=== PATIENT | male | born 1940 | race Caucasian/White ===

== ENCOUNTER → 2016-10-16 | Outpatient (REF) | payer MEDICARE, OTHER ==
[2016-10-16 12:35] LABS: ALBUMIN 3.7 GM/DL (3.2-5.2); ALBUMIN/GLOBULIN RATIO 1.28 (1.00-1.93); BILIRUBIN,TOTAL 0.8 MG/DL (0.2-1.0); CALCIUM LEVEL 8.5 MG/DL (8.8-10.2); CREATININE FOR GFR 1.36 MG/DL (0.70-1.30); GLOMERULAR FILTRATION RATE 54.1 (>42); TOTAL PROTEIN 6.6 GM/DL (6.4-8.2)
== END | disposition home or self-care (01) ==
LOC: M SFHCPLAZ 11:10
PROVIDERS: ATTEND Internal Medicine
DX: Z51.81 Encounter for therapeutic drug level monitoring (principal); Z79.899 Other long term (current) drug therapy; E78.00 Pure hypercholesterolemia, unspecified

== ENCOUNTER → 2017-04-27 | Outpatient (REF) | payer OTHER ==
[~2017-04-27] MED LIST: ASPI81TA85 PO; BACT2CRE TOP; CLOB0.0548 TOP; DICY10CA13 PO; FINA15GE TOP; FLOM5CAP PO; FLON1SPR; METO1TAB32 PO; METR0.7533 TOP; MULT1TAB18 PO; OMEP20CA3 PO; SELE25SHA TOP; VITAD1000T PO; ZOCO20TA PO
[2017-04-27 10:58] LABS: MEAN CORPUSCULAR HEMOGLOBIN 34.8 pg (27.0-33.0); MEAN CORPUSCULAR VOLUME 99.4 fl (80.0-96.0); RED CELL DISTRIBUTION WIDTH 12.6 % (11.5-14.5); WHITE BLOOD COUNT 7.4 K/mm3 (4.0-10.0)
[2017-04-27 11:24] LABS: ALBUMIN 3.9 GM/DL (3.2-5.2); ALBUMIN/GLOBULIN RATIO 1.3 (1.00-1.93); BILIRUBIN,TOTAL 0.9 MG/DL (0.2-1.0); CALCIUM LEVEL 8.9 MG/DL (8.8-10.2); CREATININE FOR GFR 1.41 MG/DL (0.70-1.30); GLOMERULAR FILTRATION RATE 51.8 (>42); POTASSIUM SERUM 4.2 MEQ/L (3.5-5.1); TOTAL PROTEIN 6.9 GM/DL (6.4-8.2)
== END ==
LOC: M SFHCPLAZ 09:11
PROVIDERS: ATTEND Internal Medicine
DX: Z51.81 Encounter for therapeutic drug level monitoring (principal); Z79.899 Other long term (current) drug therapy; D75.89 Other specified diseases of blood and blood-forming organs

== ENCOUNTER → 2017-05-11 | Outpatient (CLI) | payer OTHER ==
--- NOTE | 2017-05-11 10:25 | REP ---
Clinical: History of thoracic and abdominal aortic aneurysm. Comparison: 05/01/2016. Technique: Garcia scale and color Doppler evaluation of the abdominal aorta using curved array transducer. Findings: Moderate atherosclerotic changes are noted throughout the abdominal aorta including scattered atheromatous plaquing. Doppler interrogation demonstrates normal triphasic wave pattern and velocity through the proximal abdominal aorta. Aneurysmal dilatation to the proximal abdominal aorta represents a relatively new finding by ultrasound when compared to prior examination. Dilatation measures approximately 4.5 x 5.6 cm AP and transverse diameter and approximately 5 cm in craniocaudal length extending to the region of the celiac axis. The proximal to mid abdominal aorta tapers to approximately 3.0 x 3.5 cm through the level of the renal arteries. The mid to distal abdominal aorta demonstrates aneurysmal dilatation measuring 4.3 x 4.1 cm diameter and approximately 9 cm craniocaudal length continuing through bifurcation. The right common iliac artery measures 1.7 x 2.0 cm while the left common iliac artery measures 1.3 x 1.8 cm. No periaortic inflammatory stranding or fluid is appreciated. 1. Infrarenal abdominal aortic aneurysm as minimally increased in diameter when compared to prior examination. 2. Newly identified aneurysmal dilatation involving the proximal abdominal aorta which may represent a continuation of the patient's known thoracic aortic aneurysm. Contrast enhanced CT of the aorta using angiographic technique may be warranted for more definitive evaluation. Signed by Angel Salamanca MD 05/11/2017 10:17 A
== END ==
LOC: M RAD 09:02
PROVIDERS: ATTEND Internal Medicine
DX: I71.4 Abdominal aortic aneurysm, without rupture (principal); R93.1 Abnormal findings on diagnostic imaging of heart and coronary circulation

== ENCOUNTER 2017-06-18 07:10 | Day surgery (SDC) | payer OTHER ==
[~2017-06-18] VITALS: Ht 165.1 cm; Wt 82.5 kg
[2017-06-18] MEDS ORDERED: NS 1,000 ML IV SCH (07:15)
[2017-06-18] MEDS ORDERED: PROPOFOL 200 MG/20 ML VIAL As Ordered ONE (08:04)
[2017-06-18] MEDS ORDERED: LIDOCAINE 2% INJ 100 MG/5 ML SDV (FOR ANES.) As Ordered ONE (08:04)
--- NOTE | 2017-06-18 08:07 | ROOR ---
Patient Name: Sina Diaz Procedure Date: 06/18/2017 7:53 AM Date of : 1940 Age: 76 Room: [facility] Gender: Male Note Status: Finalized Procedure: Upper GI endoscopy Indications: Generalized abdominal pain, Dyspepsia Providers: Harlan LEON MD Referring MD: Espinoza Sharp MD Requesting Provider: Medicines: Monitored Anesthesia Care Complications: No immediate complications. Procedure: Pre-Anesthesia Assessment: - The heart rate, respiratory rate, oxygen saturations, blood pressure, adequacy of pulmonary ventilation, and response to care were monitored throughout the procedure. The Endoscope was introduced through the mouth, and advanced to the second part of duodenum. The upper GI endoscopy was accomplished without difficulty. The patient tolerated the procedure well. Findings: Candidiasis was found in the entire esophagus. The exam was otherwise without abnormality. Impression: - Monilial esophagitis (mild). - The examination was otherwise normal. - No specimens collected. Recommendation: - Nystatin suspension 100,000 units PO QID for 1 week. - (the script was sent to your pharmacy on file) Harlan Leon MD Harlan LEON MD 06/18/2017 8:07:03 AM This report has been signed electronically. Number of Addenda: 0 Note Initiated On: 06/18/2017 7:53 AM Estimated Blood Loss: Estimated blood loss: none.
--- NOTE | 2017-06-18 08:32 | ROOR ---
Patient Name: Sina Diaz Procedure Date: 06/18/2017 7:54 AM Date of : 1940 Age: 76 Room: [facility] Gender: Male Note Status: Finalized Procedure: Colonoscopy Indications: Generalized abdominal pain (resolved) Providers: Harlan LEON MD Referring MD: Espinoza Sharp MD Requesting Provider: Medicines: Monitored Anesthesia Care Complications: No immediate complications. Procedure: Pre-Anesthesia Assessment: - The heart rate, respiratory rate, oxygen saturations, blood pressure, adequacy of pulmonary ventilation, and response to care were monitored throughout the procedure. The Colonoscope was introduced through the anus and advanced to 5 cm into the ileum. The colonoscopy was performed without difficulty. The patient tolerated the procedure well. The quality of the bowel preparation was good. Findings: The perianal and digital rectal examinations were normal. A 4 mm polyp was found in the sigmoid colon. The polyp was sessile. The polyp was removed with a cold snare. Resection and retrieval were complete. Multiple small-mouthed diverticula were found in the entire colon. A diffuse area of mild melanosis was found in the entire colon. Internal hemorrhoids were found during retroflexion. The hemorrhoids were moderate. The exam was otherwise without abnormality on direct and retroflexion views. Impression: - One 4 mm polyp in the sigmoid colon, removed with a cold snare. Resected and retrieved. - Mild diverticulosis in the entire examined colon. - Moderate Internal hemorrhoids. - Normal terminal ileum. - The examination was otherwise normal on direct and retroflexion views. Recommendation: - Telephone endoscopist for pathology results in 2 weeks. - If the pathology report reveals adenomatous tissue, then repeat the colonoscopy for surveillance in 5 years. - Continue present medications. Harlan Leon MD Harlan LEON MD 06/18/2017 8:31:43 AM This report has been signed electronically. Number of Addenda: 0 Note Initiated On: 06/18/2017 7:54 AM Estimated Blood Loss: Estimated blood loss: none.
[2017-06-18 08:55] VITALS: BP 110/59
== END 2017-06-18 09:15 | disposition home or self-care (01) ==
LOC: M OPP 07:10
PROVIDERS: ATTEND Internal Medicine Gastroenterology
DX: D12.5 Benign neoplasm of sigmoid colon (principal); K57.30 Diverticulosis of large intestine without perforation or abscess without bleeding; K64.8 Other hemorrhoids; K63.89 Other specified diseases of intestine; B37.81 Candidal esophagitis; K21.9 Gastro-esophageal reflux disease without esophagitis; I71.4 Abdominal aortic aneurysm, without rupture; I10 Essential (primary) hypertension; R73.09 Other abnormal glucose; E78.5 Hyperlipidemia, unspecified; M19.90 Unspecified osteoarthritis, unspecified site; F33.9 Major depressive disorder, recurrent, unspecified; L66.1 Lichen planopilaris; L40.9 Psoriasis, unspecified; L71.9 Rosacea, unspecified; Z79.51 Long term (current) use of inhaled steroids; Z79.899 Other long term (current) drug therapy; Z79.82 Long term (current) use of aspirin; Z88.8 Allergy status to other drugs, medicaments and biological substances

== ENCOUNTER → 2017-10-24 | Outpatient (CLI) | payer OTHER | LOC: M WUC 12:03 | DX: M79.605 Pain in left leg (principal); M76.892 Other specified enthesopathies of left lower limb, excluding foot | CPT/HCPCS: 73552 ==

== ENCOUNTER → 2018-04-20 | Outpatient (REF) | payer OTHER ==
[2018-04-20 12:00] LABS: HEMATOCRIT 37.4 % (42.0-52.0); HEMOGLOBIN 12.8 g/dl (13.5-17.5); MEAN CORPUSCULAR HEMOGLOBIN 34.2 pg (27.0-33.0); MEAN CORPUSCULAR HGB CONC 34.2 g/dl (32.0-36.5); PLATELET COUNT, AUTOMATED 204 10^3/uL (150-450); RED BLOOD COUNT 3.74 10^6/uL (4.30-6.10)
[2018-04-20 12:35] LABS: PTH INTACT 28.7 PG/ML (18.5-88.0)
[2018-04-20 13:00] LABS: ALBUMIN 3.7 GM/DL (3.2-5.2); ALBUMIN/GLOBULIN RATIO 1.19 (1.00-1.93); ALKALINE PHOSPHATASE 79 U/L (45-117); ALT/SGPT 20 U/L (12-78); ANION GAP 9 MEQ/L (8-16); AST/SGOT 20 U/L (7-37); BILIRUBIN,TOTAL 0.6 MG/DL (0.2-1.0); BLOOD UREA NITROGEN 28 MG/DL (7-18); CALCIUM LEVEL 8.6 MG/DL (8.8-10.2); CARBON DIOXIDE LEVEL 27 MEQ/L (21-32); CHLORIDE LEVEL 108 MEQ/L (98-107); CHOLESTEROL LEVEL 159 MG/DL (<200); CHOLESTEROL RISK RATIO 3.456 (<5); CREATININE FOR GFR 1.25 MG/DL (0.70-1.30); GLOMERULAR FILTRATION RATE 59.3 (>42); GLUCOSE, FASTING 90 MG/DL (70-100); HDL CHOLESTEROL 46 MG/DL (>40); MAGNESIUM LEVEL 2.1 MG/DL (1.8-2.4); NON-HDL-C 113 MG/DL; POTASSIUM SERUM 4.2 MEQ/L (3.5-5.1); SODIUM LEVEL 144 MEQ/L (136-145); TOTAL PROTEIN 6.8 GM/DL (6.4-8.2); TRIGLYCERIDES LEVEL 70 MG/DL (<150)
== END ==
LOC: M SFHCPLAZ 08:52
DX: M79.652 Pain in left thigh (principal); D75.89 Other specified diseases of blood and blood-forming organs; E78.00 Pure hypercholesterolemia, unspecified; N18.3 Chronic kidney disease, stage 3 (moderate)
CPT/HCPCS: 83735

== ENCOUNTER → 2018-10-17 | Outpatient (CLI) | payer OTHER ==
[~2018-10-17] MED LIST changes: +FLOM0.4C39 PO; -FLOM5CAP PO
--- NOTE | 2018-10-17 16:07 | REP ---
CHEST PA AND LATERAL: 10/17/2018: Clinical history: Dyspnea. Comparison: Lung windows from CT abdomen 05/01/2014. Findings: Two views show the lungs are well inflated. The CP angles are sharply defined. There is no pleural effusion, lateral pleural thickening or apical scarring. No definite infiltrate or lung mass. Some underlying fibrosis and COPD. Heart size borderline with some left atrial enlargements. There is a calcified tortuous ectatic aorta and its descending portion of may be aneurysmal as suggested on the lateral although there is a magnification effect there. The CT of the abdomen showed diameters up to 3.8 cm for the distal thoracic aorta. Airway is intact. There are degenerative changes in the spine without acute compression deformity. No free air under the diaphragm. Impression: 1. COPD with some basilar fibrotic change. No acute infiltrate. 2. Tortuous calcified ectatic aorta, the descending aorta could be mildly aneurysmal. A diameter up to 3.[address] abdomen 4 years ago noted near the aortic hiatus. 3. Degenerative changes in the spine and shoulders. No acute bony finding. Electronically Signed by Abdelrahman Ramsay MD 10/17/2018 06:01 P
== END ==
LOC: M WUC 15:01
PROVIDERS: ATTEND Physician Assistant
DX: J44.9 Chronic obstructive pulmonary disease, unspecified (principal); I70.0 Atherosclerosis of aorta; R06.02 Shortness of breath

== ENCOUNTER → 2018-10-27 | Outpatient (REF) | payer MEDICARE ==
[2018-10-27 12:13] LABS: ALBUMIN 3.6 GM/DL (3.2-5.2); ALT/SGPT 22 U/L (12-78); BILIRUBIN,TOTAL 0.6 MG/DL (0.2-1.0); BLOOD UREA NITROGEN 24 MG/DL (7-18); CALCIUM LEVEL 8.4 MG/DL (8.8-10.2); CARBON DIOXIDE LEVEL 28 MEQ/L (21-32); CHLORIDE LEVEL 109 MEQ/L (98-107); CREATININE FOR GFR 1.15 MG/DL (0.70-1.30); GLOMERULAR FILTRATION RATE > 60.0 (>42); GLUCOSE, FASTING 102 MG/DL (70-100); POTASSIUM SERUM 4.3 MEQ/L (3.5-5.1); SODIUM LEVEL 144 MEQ/L (136-145); TOTAL PROTEIN 6.6 GM/DL (6.4-8.2)
[2018-10-27 12:19] LABS: PTH INTACT 35.7 PG/ML (18.5-88.0)
== END ==
LOC: M SFHCPLAZ 09:01
PROVIDERS: ATTEND Internal Medicine
DX: N18.3 Chronic kidney disease, stage 3 (moderate) (principal)

== ENCOUNTER → 2018-11-15 | Outpatient (CLI) | payer MEDICARE ==
[~2018-11-15] MED LIST changes: +ISOVUE-370 76% 125ML VIAL (Q9967 PER ML) As Ordered ONE
--- NOTE | 2018-11-29 14:33 | REP ---
Clinical: Thoracic and abdominal aortic aneurysm. Technique: Contrast enhanced CT from the thoracic inlet through the pubic symphysis using aortic angiographic technique with 100 ml Isovue 370 intravenous contrast material. Multiplanar re-formations and MIP re-formations obtained. Comparison: Abdominal CT dated 05/01/2014. Findings: Satisfactory arterial enhancement demonstrates extensive atherosclerotic disease involving the thoracoabdominal aorta as well as major branch vessels. The aorta itself demonstrates areas of intimal calcifications and mural thrombus extending essentially from the aortic root through the bifurcation to iliac arteries. The proximal ascending thoracic aorta just above the root measures 4 cm maximal diameter while the proximal descending thoracic aorta just beyond the aortic arch measures 4.2 cm maximal diameter with increased aneurysmal dilatation at the level of the diaphragmatic hiatus where the distal descending thoracic aorta measures up to approximately 5.4 cm maximal diameter demonstrating most prominent amount of noncalcified mural thrombus. There is tapering of the proximal abdominal aorta to the level of the renal arteries where the aorta measures 3.5 cm maximal diameter with subsequent dilatation of the infrarenal abdominal aorta measuring up to approximately 4.6 cm maximal diameter. Just above the level of bifurcation to common iliac arteries the abdominal aorta measures 2.8 cm maximal diameter while the right common iliac artery measures 1.4 cm maximal diameter and the left common iliac artery measures 1.3 cm maximal diameter. The above areas of aneurysmal dilatation appear to be increased when compared with abdominal CT dated 2013. Further evaluation of the chest demonstrates diffuse chronic interstitial changes without consolidation, significant nodule, or mass lesion. No pleural effusion. No pneumothorax. Tracheobronchial tree is patent. Mild mediastinal and hilar lymph nodes are essentially unchanged. Stable cardiomegaly and atherosclerotic changes to the coronary arteries noted. Further evaluation of the abdomen and pelvis demonstrates normal liver, spleen, pancreas, gallbladder, and bilateral adrenal glands. The kidneys demonstrate satisfactory enhancement with mild age-related cortical changes and small simple appearing cysts measuring up to 1.5 cm in the right kidney. The enteric system is without obstruction or acute inflammatory process. Normal terminal ileum and appendix identified in the right lower quadrant. Few scattered colonic and sigmoid diverticula noted without acute diverticulitis. Evaluation the pelvis demonstrates a 4 cm left anterior bladder diverticulum and essentially normal prostate gland. Fat containing right inguinal hernia noted. No ascites. No free air. No significant adenopathy. Impression: 1. Thoracoabdominal aortic aneurysm along with advanced atherosclerotic changes as described above. 2. Mild chronic changes of bilateral kidneys with few simple cysts. 3. Stable bladder diverticulum. 4. Fat-containing right inguinal hernia. Electronically Signed by Angel Salamanca MD 11/29/2018 02:32 P
== END ==
LOC: M RAD 11:40
PROVIDERS: ATTEND Internal Medicine
DX: I71.2 Thoracic aortic aneurysm, without rupture (principal); I71.4 Abdominal aortic aneurysm, without rupture; N28.1 Cyst of kidney, acquired; K40.91 Unilateral inguinal hernia, without obstruction or gangrene, recurrent
CPT/HCPCS: 71275; 74175; Q9967

== ENCOUNTER → 2019-05-03 | Outpatient (REF) | payer MEDICARE ==
[~2019-05-03] MED LIST changes: +CHOL100029 PO; -ISOVUE-370 76% 125ML VIAL (Q9967 PER ML) As Ordered ONE; -OMEP20CA3 PO; +OMEP20CA4 PO; -VITAD1000T PO
[2019-05-03 12:56] LABS: HEMATOCRIT 36.4 % (42.0-52.0); HEMOGLOBIN 12.5 g/dl (13.5-17.5); MEAN CORPUSCULAR HEMOGLOBIN 34.9 pg (27.0-33.0); MEAN CORPUSCULAR HGB CONC 34.3 g/dl (32.0-36.5); MEAN CORPUSCULAR VOLUME 101.7 fl (80.0-96.0); PLATELET COUNT, AUTOMATED 197 10^3/uL (150-450); RED BLOOD COUNT 3.58 10^6/uL (4.30-6.10); WHITE BLOOD COUNT 7.4 10^3/uL (4.0-10.0)
[2019-05-03 13:14] LABS: ALBUMIN 3.8 GM/DL (3.2-5.2); BILIRUBIN,TOTAL 0.8 MG/DL (0.2-1.0); CALCIUM LEVEL 8.9 MG/DL (8.8-10.2); CHOLESTEROL RISK RATIO 3.52 (<5); CREATININE FOR GFR 1.47 MG/DL (0.70-1.30); GLOMERULAR FILTRATION RATE 49.1 (>35); MAGNESIUM LEVEL 2.1 MG/DL (1.8-2.4); POTASSIUM SERUM 4.1 MEQ/L (3.5-5.1); TOTAL PROTEIN 6.7 GM/DL (6.4-8.2)
[2019-05-03 13:48] LABS: PTH INTACT 37.7 PG/ML (18.5-88.0)
== END ==
LOC: M SFHCPLAZ 09:02
PROVIDERS: ATTEND Internal Medicine
DX: D75.89 Other specified diseases of blood and blood-forming organs (principal); N18.3 Chronic kidney disease, stage 3 (moderate); E78.00 Pure hypercholesterolemia, unspecified

== ENCOUNTER → 2019-06-12 | Outpatient (CLI) | payer MEDICARE ==
--- NOTE | 2019-06-13 08:44 | REP ---
Clinical: Abdominal aortic aneurysm. Comparison: 05/11/2017. Technique: Real time roberto scale ultrasound examination using curved array transducer. Findings: Extensive atherosclerotic changes are appreciated including mural thrombus and intimal calcifications along the course of the abdominal aorta. Known dumbbell shaped aneurysmal dilatation of the abdominal aorta is again appreciated. The proximal aneurysm extends from the diaphragmatic hiatus to approximately the level of the renal arteries measuring 4.0 x 4.4 cm maximal AP x transverse diameter and 7.5 cm in length tapering to 2.0 x 3.5 cm diameter followed by a more distal aneurysmal dilatation measuring 5.0 x 4.5 cm and approximately 10.6 cm in length tapering to 2.0 x 1.9 cm diameter at the level of the bifurcation to common iliac arteries. Right common iliac artery measures 1.7 x 1.4 cm diameter while the left common iliac artery measures 1.3 x 1.6 cm diameter. No periaortic fluid is appreciated. Impression: Known dumbbell shaped aneurysmal dilatation of the abdominal aorta extending from the diaphragmatic hiatus and tapering to normal diameter at the bifurcation to common iliac arteries. Aneurysm appears mildly increased when compared to prior ultrasound but relatively stable as compared to CT angiography dated 11/15/2018. Electronically Signed by Angel Salamanca MD 06/13/2019 08:36 A
== END ==
LOC: M RAD 07:57
PROVIDERS: ATTEND Physician Assistant
DX: I71.4 Abdominal aortic aneurysm, without rupture (principal)

== ENCOUNTER → 2019-10-31 | Outpatient (CLI) | payer MEDICARE ==
[~2019-10-31] MED LIST changes: +OMEP1CAP73 PO; -OMEP20CA4 PO
[2019-10-31 14:18] LABS: ALBUMIN 3.6 GM/DL (3.2-5.2); ALT/SGPT 21 U/L (12-78); BILIRUBIN,TOTAL 0.6 MG/DL (0.2-1.0); BLOOD UREA NITROGEN 26 MG/DL (7-18); CALCIUM LEVEL 8.7 MG/DL (8.8-10.2); CARBON DIOXIDE LEVEL 28 MEQ/L (21-32); CHLORIDE LEVEL 111 MEQ/L (98-107); CREATININE FOR GFR 1.37 MG/DL (0.70-1.30); GLOMERULAR FILTRATION RATE 53.2 (>35); GLUCOSE, FASTING 104 MG/DL (70-100); POTASSIUM SERUM 4.4 MEQ/L (3.5-5.1); SODIUM LEVEL 143 MEQ/L (136-145); TOTAL PROTEIN 6.6 GM/DL (6.4-8.2)
[2019-10-31 14:29] LABS: FOLATE > 24.0 NG/ML; PTH INTACT 38.8 PG/ML (18.5-88.0); VITAMIN B12 LEVEL 645 PG/ML
[2019-10-31 15:11] LABS: CREATININE, URINE 74.7 MG/DL; MALB URINE SIEMENS 13.2 MG/L; MAU/CREAT RATIO 17.6 MCG/MG (0.0-30.0)
== END ==
LOC: M PLALAB 09:22
PROVIDERS: ATTEND Internal Medicine
DX: N18.3 Chronic kidney disease, stage 3 (moderate) (principal); R73.01 Impaired fasting glucose; D75.89 Other specified diseases of blood and blood-forming organs

== ENCOUNTER → 2020-05-09 | Outpatient (CLI) | payer MEDICARE ==
[~2020-05-09] MED LIST changes: -ASPI81TA85 PO; +ASPI81TA86 PO
[2020-05-09 14:09] LABS: HEMATOCRIT 33.8 % (42.0-52.0); HEMOGLOBIN 11.7 g/dl (13.5-17.5); MEAN CORPUSCULAR HEMOGLOBIN 34.9 pg (27.0-33.0); MEAN CORPUSCULAR HGB CONC 34.6 g/dl (32.0-36.5); MEAN CORPUSCULAR VOLUME 100.9 fl (80.0-96.0); PLATELET COUNT, AUTOMATED 168 10^3/uL (150-450); RED BLOOD COUNT 3.35 10^6/uL (4.30-6.10); WHITE BLOOD COUNT 6.5 10^3/uL (4.0-10.0)
[2020-05-09 14:21] LABS: ALBUMIN 3.6 GM/DL (3.2-5.2); BILIRUBIN,TOTAL 0.6 MG/DL (0.2-1.0); CALCIUM LEVEL 8.9 MG/DL (8.8-10.2); CHOLESTEROL RISK RATIO 2.924 (<5); CREATININE FOR GFR 1.85 MG/DL (0.70-1.30); GLOMERULAR FILTRATION RATE 37.5 (>35); MAGNESIUM LEVEL 2.1 MG/DL (1.8-2.4); POTASSIUM SERUM 4.5 MEQ/L (3.5-5.1); PTH INTACT 36.7 PG/ML (18.5-88.0); TOTAL PROTEIN 6.9 GM/DL (6.4-8.2)
== END ==
LOC: M PLALAB 10:04
PROVIDERS: ATTEND Internal Medicine
DX: N18.3 Chronic kidney disease, stage 3 (moderate) (principal); R73.01 Impaired fasting glucose; E78.00 Pure hypercholesterolemia, unspecified; D75.89 Other specified diseases of blood and blood-forming organs

== ENCOUNTER → 2020-06-26 | Outpatient (CLI) | payer MEDICARE ==
--- NOTE | 2020-06-26 16:06 | REPPI ---
INDICATION: M25.511 ACUTE PAIN OF RIGHT SHOULDER. COMPARISON: None. TECHNIQUE: Three views obtained. FINDINGS: Three views of the right shoulder performed. There is no acute fracture or dislocation. No intrinsic osseous pathology is seen. There appears to be mild joint space narrowing of the glenohumeral joint. IMPRESSION: No acute findings. <Electronically signed by Melecio Garcia > 06/26/20 [id number]
== END ==
LOC: M PLAIMG 15:31
PROVIDERS: ATTEND Physician Assistant
DX: M25.511 Pain in right shoulder (principal); W19.XXXA Unspecified fall, initial encounter; R39.198 Other difficulties with micturition; R42 Dizziness and giddiness
CPT/HCPCS: 36415; 73030; 80053; 81002; 85025; 87086; G0463

== ENCOUNTER → 2020-06-26 | Outpatient (REF) | payer MEDICARE ==
[2020-06-26 17:14] LABS: BASO % 0.3 % (0.0-1.0); EOS # 0.3 10^3/uL (0.0-0.5); EOS % 2.7 % (0.0-3.0); HEMATOCRIT 28.5 % (42.0-52.0); HEMOGLOBIN 9.4 g/dl (13.5-17.5); LYMPH # 1.4 10^3/uL (1.5-5.0); LYMPH % 12.7 % (24.0-44.0); MEAN CORPUSCULAR HEMOGLOBIN 33.2 pg (27.0-33.0); MEAN CORPUSCULAR VOLUME 100.7 fl (80.0-96.0); MONO # 1.4 10^3/uL (0.0-0.8); MONO % 12.3 % (0.0-5.0); NEUTROPHILS # 7.8 10^3/uL (1.5-8.5); NEUTROPHILS % 71.5 % (36.0-66.0); PLATELET COUNT, AUTOMATED 241 10^3/uL (150-450); RED BLOOD COUNT 2.83 10^6/uL (4.30-6.10)
[2020-06-26 17:37] LABS: ALBUMIN 3.4 GM/DL (3.2-5.2); BILIRUBIN,TOTAL 0.4 MG/DL (0.2-1.0); CALCIUM LEVEL 8.3 MG/DL (8.8-10.2); CREATININE FOR GFR 2.58 MG/DL (0.70-1.30); GLOMERULAR FILTRATION RATE 25.6 (>35); POTASSIUM SERUM 3.9 MEQ/L (3.5-5.1); TOTAL PROTEIN 6.7 GM/DL (6.4-8.2)
== END ==
LOC: M SFHCPLAZ 15:29
PROVIDERS: ATTEND Physician Assistant
DX: M25.511 Pain in right shoulder (principal); W19.XXXA Unspecified fall, initial encounter; R39.198 Other difficulties with micturition; R42 Dizziness and giddiness

== ENCOUNTER → 2020-07-08 | Outpatient (REF) | payer MEDICARE ==
[2020-07-08 14:11] LABS: BASO % 0.2 % (0.0-1.0); EOS # 0.5 10^3/uL (0.0-0.5); EOS % 5.6 % (0.0-3.0); HEMATOCRIT 29.9 % (42.0-52.0); HEMOGLOBIN 9.7 g/dl (13.5-17.5); LYMPH # 1.1 10^3/uL (1.5-5.0); LYMPH % 12.2 % (24.0-44.0); MEAN CORPUSCULAR HGB CONC 32.4 g/dl (32.0-36.5); MEAN CORPUSCULAR VOLUME 101.7 fl (80.0-96.0); MONO # 0.7 10^3/uL (0.0-0.8); MONO % 7.5 % (0.0-5.0); NEUTROPHILS # 6.9 10^3/uL (1.5-8.5); PLATELET COUNT, AUTOMATED 152 10^3/uL (150-450); RED BLOOD COUNT 2.94 10^6/uL (4.30-6.10); WHITE BLOOD COUNT 9.3 10^3/uL (4.0-10.0)
[2020-07-08 15:25] LABS: CREATININE FOR GFR 2.42 MG/DL (0.70-1.30); GLOMERULAR FILTRATION RATE 27.5 (>35); POTASSIUM SERUM 3.8 MEQ/L (3.5-5.1)
== END ==
LOC: M LAB REF 13:43
PROVIDERS: ATTEND Internal Medicine
DX: I63.9 Cerebral infarction, unspecified (principal); D64.9 Anemia, unspecified

== ENCOUNTER 2020-07-19 13:28 | Inpatient (IN) | payer MEDICARE ==
[~2020-07-19] VITALS: Ht 167.6 cm; Wt 83.0 kg
[2020-07-19] MEDS: LIDOCAINE 5% (LIDODERM) PATCH TD SCH (09:00)
[2020-07-19] MEDS ORDERED: CELE20TA PO (13:42)
[2020-07-19] MEDS ORDERED: MELA1TAB9 PO (13:42)
[2020-07-19] MEDS ORDERED: FLOM0.4C39 PO (13:42)
[2020-07-19] MEDS ORDERED: FERR325T81 PO (13:42)
[2020-07-19] MEDS ORDERED: D31000TA2 PO (13:42)
[2020-07-19] MEDS ORDERED: METO1TAB32 PO (13:42)
[2020-07-19] MEDS ORDERED: ARTHRO PO (13:42)
[2020-07-19] MEDS ORDERED: SUCR1TAB56 PO (13:42)
[2020-07-19] MEDS ORDERED: FINA5TAB2 PO (13:42)
[2020-07-19] MEDS ORDERED: CRES20TA2 PO (13:42)
[2020-07-19] MEDS ORDERED: SENN-23 PO ×2 (13:42)
[2020-07-19] MEDS ORDERED: ASPI325T48 PO (13:42)
--- NOTE | 2020-07-19 14:58 | REPVR ---
PROCEDURE INFORMATION: Exam: CT Lumbar Spine Without Contrast Exam date and time: 07/19/2020 2:29 PM Age: 79 years old Clinical indication: Pain; Lumbago; Additional info: Low back pain; Leg weakness TECHNIQUE: Imaging protocol: Computed tomography images of the lumbar spine without contrast. Radiation optimization: All CT scans at this facility use at least one of these dose optimization techniques: automated exposure control; mA and/or kV adjustment per patient size (includes targeted exams where dose is matched to clinical indication); or iterative reconstruction. COMPARISON: No relevant prior studies available. FINDINGS: Vertebrae: Mild upper lumbar dextroconvex scoliosis and lower lumbar levoconvex scoliosis. Trace 1-2 mm of degenerative retrolisthesis of L1 on L2. 2 mm of grade 1 degenerative anterolisthesis of L3 on L4. No acute fracture seen. Diffuse osseous demineralization. Disc height loss and spondylosis from L2-L3 through L5-S1, in particular diffusely at L2-L3 and L4-L5. L1-L2: Slight retrolisthesis. Mild disc bulge as well as mild to moderate facet arthropathy. No stenoses. L2-L3: Moderate left eccentric disc osteophyte complex and facet arthropathy. Central spinal canal stenosis is mild. Moderate left and mild right neural foraminal stenoses. L3-L4: Anterolisthesis with pseudobulging of the intervertebral disc. Severe facet arthropathy and ligamentum flavum buckling. Central spinal canal stenosis is moderate to severe. The lateral recesses are narrowed near the L4 nerve roots. Zkhx-rb-nuritasp left neural foraminal stenosis. No significant right neural foraminal narrowing. L4-L5: Marked right eccentric disc osteophyte complex, facet arthropathy and ligamentum flavum buckling. Central spinal canal stenosis is qhfb-fa-rugpcaek. The lateral recesses are narrowed near the L5 nerve roots, in particular on the right. Fjkv-fu-sekleucs bilateral neural foraminal stenoses. L5-S1: Mild diffuse disc osteophyte complex as well as moderate to severe facet arthropathy. No significant central spinal canal stenosis. Mild bilateral neural foraminal stenoses. Kidneys and ureters: The right kidney demonstrates an exophytic simple cyst, visualized portion measuring approximately 1.2 cm. No specific follow-up is indicated. Vasculature: An infrarenal abdominal aortic aneurysm is partially visualized. The transverse diameter measures up to 5.3 cm. The descending thoracic and upper abdominal aortic aneurysm measures up to 6.6 cm in diameter. There is a lower thoracic stent graft. Soft tissues: Unremarkable. IMPRESSION: 1. High-grade central spinal canal and lateral recess stenoses at L3-L4. 2. Gzfo-kk-pbjyojon central spinal canal stenosis at L4-L5. 3. Lower thoracic and abdominal aortic aneurysms, as above. COMMENTS: Consistent with the [employer]'s Incidental Findings Committee white paper (J Am Breanna Radiol 2018): Any incidental renal lesion less than 1 cm or classified as too small to characterize, or any incidental cystic renal lesion characterized as simple-appearing, is likely benign. No follow-up imaging is recommended for these lesions per consensus recommendations based on imaging criteria. Electronically signed by: Lary Malik On 07/19/2020 14:58:19 PM
[2020-07-19 17:06] LABS: BASO % 0.3 % (0.0-1.0); EOS # 0.3 10^3/uL (0.0-0.5); EOS % 4.2 % (0.0-3.0); HEMATOCRIT 27.8 % (42.0-52.0); HEMOGLOBIN 9.1 g/dl (13.5-17.5); LYMPH # 1.2 10^3/uL (1.5-5.0); LYMPH % 15.9 % (24.0-44.0); MEAN CORPUSCULAR HEMOGLOBIN 32.3 pg (27.0-33.0); MEAN CORPUSCULAR HGB CONC 32.7 g/dl (32.0-36.5); MEAN CORPUSCULAR VOLUME 98.6 fl (80.0-96.0); MONO # 0.9 10^3/uL (0.0-0.8); MONO % 11.2 % (0.0-5.0); NEUTROPHILS # 5.2 10^3/uL (1.5-8.5); NEUTROPHILS % 67.9 % (36.0-66.0); PLATELET COUNT, AUTOMATED 178 10^3/uL (150-450); RED BLOOD COUNT 2.82 10^6/uL (4.30-6.10); WHITE BLOOD COUNT 7.6 10^3/uL (4.0-10.0)
[2020-07-19 17:33] LABS: BLOOD UREA NITROGEN 50 MG/DL (7-18); CALCIUM LEVEL 8.7 MG/DL (8.8-10.2); CARBON DIOXIDE LEVEL 25 MEQ/L (21-32); CHLORIDE LEVEL 108 MEQ/L (98-107); CK-MB VALUE MASS 2.7 NG/ML (<3.6); CPK CREATINE PHOSPHOKINASE 114 U/L (39-308); CREATININE FOR GFR 2.78 MG/DL (0.70-1.30); GLOMERULAR FILTRATION RATE 23.5 (>35); GLUCOSE, FASTING 82 MG/DL (70-100); MAGNESIUM LEVEL 2.1 MG/DL (1.8-2.4); MB/CK RELATIVE INDEX 2.37 (< OR =4); POTASSIUM SERUM 3.9 MEQ/L (3.5-5.1); SODIUM LEVEL 140 MEQ/L (136-145); TROPONIN I < 0.02 NG/ML (< 0.10)
[2020-07-19] MEDS ORDERED: traMADol 50 MG TAB PO PRN ×2 (18:00)
[2020-07-19] MEDS ORDERED: NS 1,000 ML IV ONE (18:30)
--- NOTE | 2020-07-19 18:55 | REPVR ---
PROCEDURE INFORMATION: Exam: CT Head Without Contrast Exam date and time: 07/19/2020 6:28 PM Age: 79 years old Clinical indication: Injury or trauma; Fall; Blunt trauma (contusions or hematomas); Consciousness not specified; Additional info: Fall R/O ich sdh TECHNIQUE: Imaging protocol: Computed tomography of the head without contrast. Radiation optimization: All CT scans at this facility use at least one of these dose optimization techniques: automated exposure control; mA and/or kV adjustment per patient size (includes targeted exams where dose is matched to clinical indication); or iterative reconstruction. COMPARISON: No relevant prior studies available. 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 Focal, chronic appearing bilateral caudate lacunar infarcts. The brain demonstrates generalized volume loss. Patchy hypodensities in the deep white matter most likely representing chronic small vessel ischemic change. No hemorrhage. Cerebral ventricles: The ventricles are mildly enlarged in keeping with volume loss. Bones/joints: Chronic sigmoid deviation of the nasal septum. No acute calvarial fracture seen. Paranasal sinuses: Visualized sinuses are unremarkable. No fluid levels. Mastoid air cells: Visualized mastoid air cells are well aerated. Soft tissues: Unremarkable. IMPRESSION: No intracranial hemorrhage seen. Electronically signed by: Lary Malik On 07/19/2020 18:55:24 PM
--- NOTE | 2020-07-19 19:18 | REP ---
INDICATION: fall landed on b/l knees pain r/o fx COMPARISON: None. TECHNIQUE: AP and cross-table lateral views of the right and left knee. FINDINGS: The bilateral lateral views are nondiagnostic due to technique and over penetration which limits evaluation of the bilateral patella and overlying prepatellar soft tissues. Right knee demonstrates early advanced tricompartmental osteoarthritic degenerative changes including joint space narrowing, marginal spurring, subchondral sclerosis, and chondrocalcinosis. Left knee demonstrates mild tricompartmental osteoarthritic changes including joint space narrowing with subchondral sclerosis. IMPRESSION: Degenerative changes (right greater than left). Lateral views are suboptimal due to over-penetration and evaluation of the bilateral patella and prepatellar soft tissues are incomplete. <Electronically signed by Angel Salamanca > 07/19/201913
--- NOTE | 2020-07-19 19:47 | HPEPDOC ---
[facility] Medical History & Physical Date of Admission Jul 19, 2020 Date of Service: Jul 19, 2020 History and Physical CHIEF COMPLAINT: "My knees gave out. I follow in my knees" HISTORY OF PRESENT ILLNESS: 79-year-old male with past medical history significant for chronic kidney disease stage III, hypercholesterolemia, depression with anxiety, osteoarthritis, nocturia, macrocytosis, memory deficit, thoracic aortic aneurysm without rupture. 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 His daughter was able to catch it before he hit his head and reach the floor. Patient has noticed increasing weakness of his knees since last spring. He is usually able to mow the lawn but has been unable to do this. Patient's balance has been worsened in the past 2-3 weeks and has had about 3 falls in the past 3 weeks despite using his walker at home. He denies any back pain or radiating pain from the back to the foot or behind the knee. He has not sought any help from his primary care physician regarding his chronic spinal stenosis. He denies having any steroid injections. Pain management referral or or either neurosurgical or orthopedic referral. He otherwise denied any palpitations, lightheadedness, dizziness, shortness of breath prior to the episode. He has been in his usual state of health and denied any fever, chills, headache, sore throat, tinnitus, vertigo, visual changes, diplopia, blurred vision, ear pain, neck pain, chest pain, pressure, tightness, near syncope, nausea, vomiting, diarrhea, abdominal pain, dysuria, urgency, frequency, flank pain, polyuria, polydipsia, weight gain, weight loss, changes in appetite, skin rash, abnormal nodules or joint pains. In the emergency room, a CT lumbar spine shows high- grade central spinal canal and lateral recess stenosis at L3-L4, L4-L5, mild to moderate central spinal canal stenosis lower thoracicoabdominal aneurysms as above. X-rays of bilateral knees have no fracture but with tricompartmental osteoarthritic changes. CT of the head is chronic, old infarcts with no int racranial hemorrhage. Patient was evaluated by physical therapy and recommended observation to improve patient's balance. hospitalist was called to admit. PAST MEDICAL HISTORY/PAST SURGICAL HISTORY: chronic kidney disease stage III, hypercholesterolemia, depression with anxiety, osteoarthritis, nocturia, macrocytosis, memory deficit, thoracic aortic aneurysm without rupture. 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 Lives with his at home. Denies recreational drug use, alcohol or cigarette use in the past FAMILY HISTORY: Noncontributory due to age Home medications: SEE BELOW ALLERGIES: Please see below. REVIEW OF SYSTEMS: -10 point review of system aside from positive findings in HPI HOME MEDICATIONS: Please see below. PHYSICAL EXAMINATION: VITAL SIGNS: See below Generally patient is awake, alert, oriented 3, answering questions appropri ately . HEENT: Pupils round, reactive to light accommodation. Extra muscles intact. No normocephalic, atraumatic. No carotid bruit no JVD or thyromegaly. Lungs: Clear to auscultation. No wheezing, rales or rhonchi. No adventitious breath sounds. Air entry is equal bilaterally. No kyphoscoliosis . Heart: S1, S2, sinus rhythm. Abdomen: Soft nontender nondistended positive bowel sounds 4 quadrants . Positive abdominal bruit . Extremity no cyanosis, clubbing or pitting edema . Skin no ecchymosis or hematomas noted. Bilateral lower extremities . Neuro patient has decreased sensation on the left lower extremity with some numbness. Motor function is 5 out of 54 extremities. Patient has negative straight-leg test bilaterally LABORATORY DATA: See below. IMAGING: CT head 07/19/2020, right parietal, left parieto-occipital transcortical infarct, probably chronic focal chronic appearing bilateral caudate lacunar infarct. Brain demonstrates generalized volume loss patch hypodensity in deep wh ite matter, most likely representing chronic small vessel ischemic change, no hemorrhage. Ventricles are mildly enlarged. In keeping with volume loss, chronic sigmoid deviation of the nasal septum. No acute calvarial fracture, no intracranial hemorrhage X-ray bilateral knees 07/19/2020: Right. He demonstrates early advanced tricompartmental osteoarthritic degenerative changes left knee demonstrates mild tricompartmental osteophytic changes Lumbar spine CT 07/19/2020, high-grade central spinal canal lateral recess stenosis at L3-L4, mild to moderate central canal spinal stenosis L4-L5 lower thoracicoabdominal aneurysms infrarenal Aguilar aneurysm is partially visualized with transverse diameter measuring up to 5.3 cm upper abdominal aortic aneurysm measures up to 6.6 cm there is a lower thoracic stent graft MICROBIOLOGY: Please see below. ASSESSMENT: 79-year-old male with past medical history significant for chronic kidney disease stage III, hypercholesterolemia, depression with anxiety, osteoarthritis, nocturia, macrocytosis, memory deficit, thoracic aortic aneurysm without rupture. 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 His daughter was able to catch it before he hit his head and reach the floor. Patient has noticed increasing weakness of his knees since last spring. He is usually able to mow the lawn but has been unable to do this. Patient's balance has been worsened in the past 2-3 weeks and has had about 3 falls in the past 3 weeks despite using his walker at home. He denies any back pain or radiating pain from the back to the foot or behind the knee. He has not sought any help from his primary care physician regarding his chronic spinal stenosis. He denies having any steroid injections. Pain management referral or or either neurosurgical or orthopedic referral. He otherwise denied any palpitations, lightheadedness, dizziness, shortness of breath prior to the episode. He has been in his usual state of health and denied any fever, chills, headache, sore throat, tinnitus, vertigo, visual changes, diplopia, blurred vision, ear pain, neck pain, chest pain, pressure, tightness, near syncope, nausea, vomiting, diarrhea, abdominal pain, dysuria, urgency, frequency, flank pain, polyuria, polydipsia, weight gain, weight loss, changes in appetite, skin rash, abnormal nodules or joint pains. In the emergency room, a CT lumbar spine shows high- grade central spinal canal and lateral recess stenosis at L3-L4, L4-L5, mild to moderate central spinal canal stenosis lower thoracicoabdominal aneurysms as above. X-rays of bilateral knees have no fracture but with tricompartmental osteoarthritic changes. CT of the head is chronic, old infarcts with no intracranial hemorrhage. Patient was evaluated by physical therapy and recommended observation to improve patient's balance. hospitalist was called to admit. Recurrent falls Gait instability in the setting of multiple CVAs in the past Severe bilateral central canal spinal stenosis L3-L5 Abdominal aortic aneurysm measuring 5.3 cm and infrarenal area 6.6 cm descending thoracic upper abdominal [place] aneurysm chronic kidney disease stage III, hypercholesterolemia, depression with anxiety, osteoarthritis, memory deficit, . PLAN: Due to recent recurrent falls. Patient will be admitted for observation for physical therapy services. He did not had any prodromal symptoms to suggest a medical illness prior to the fall. Patient admits to having some gait instability, most likely secondary to multiple CVAs. He otherwise denied any acute ischemic symptoms prior to the episode. He certainly did not have any acut e infectious process currently or in the past 2 days, though it causes significant weakness. However, we will check a urinalysis and chest x-ray to further evaluate. Physical therapy, occupational therapy have been consulted. Fall precautions. Activity as tolerated but with assisted ambulation only. Patient is to walk with his walker at all times. He may be resumed on all his home medications. He currently denies any pain in the knees or the back. We'll continue to monitor patient's blood pressure and will optimize his medications for goal blood pressure of 120-1 30 mmHg DVT prophylaxis with compression stockings. Patient may be discharged as soon as he clears physical therapy and improves his gait imbalance. Vital Signs Vital Signs Date Time Temp Pulse Resp B/P (MAP) Pulse Ox O2 Delivery O2 Flow Rate FiO2 07/19/20 17:56 98.6 68 20 160/90 (113) 95 Room Air Laboratory Data Labs 24H Laboratory Tests 2 07/19/20 16:54: Immature Granulocyte % (Auto) 0.5, Neutrophils (%) (Auto) 67.9H, Lymphocytes (%) (Auto) 15.9L, Monocytes (%) (Auto) 11.2H, Eosinophils (%) (Auto) 4.2H, Basophils (%) (Auto) 0.3, Neutrophils # (Auto) 5.2, Lymphocytes # (Auto) 1.2L, Monocytes # (Auto) 0.9H, Eosinophils # (Auto) 0.3, Basophils # (Auto) 0.0, Nucleated Red Blood Cells % (auto) 0.0, Anion Gap 7L, Glomerular Filtration Rate 23.5L, Calcium Level 8.7L, Magnesium Level 2.1, Total Creatine Kinase 114, Creatine Kinase MB 2.7, Creatine Kinase MB Relative Index 2.37, Troponin I < 0.02, Thyroid Stimulating Hormone (TSH) 2.500 CBC/BMP Laboratory Tests 07/19/20 16:54 Home Medications Scheduled Aspirin (Aspirin EC) 325 Mg Tablet.dr, 325 MG PO DAILY Cholecalciferol (Vitamin D3) (Vitamin D3) 1,000 Unit Tablet, 2,000 UNITS PO BID Citalopram Hydrobromide (Celexa) 20 Mg Tablet, 20 MG PO DAILY Ferrous Sulfate (Iron) 325 Mg Tablet, 65 MG PO 3XW TUES, THURS, SAT Finasteride (Finasteride) 5 Mg Tablet, 5 MG PO QHS Melatonin (Melatonin) 5 Mg Tablet, 5 MG PO QHS Metoprolol Succinate (Metoprolol Succinate) 25 Mg Tab.er.24h, 25 MG PO QHS Omeprazole (Omeprazole) 20 Mg Cap, 40 MG PO DAILY Rosuvastatin Calcium (Crestor) 20 Mg Tablet, 20 MG PO Q2D AT BEDTIME Sennosides/Docusate Sodium (Senna-S Tablet) 1 Each Tablet, 1 TAB PO QHS Sucralfate (Sucralfate) 1 Gm Tablet, 1 GM PO AC Tamsulosin HCl (Flomax) 0.4 Mg Capsule, 0.4 MG PO QHS [Arthro] , 1 TAB PO BID Scheduled PRN Sennosides/Docusate Sodium (Senna-S Tablet) 1 Each Tablet, 1 TAB PO DAILY PRN for CONSTIPATION Allergies Coded Allergies: prochlorperazine (Verified Allergy, Severe, TONGUE SWELLING, 07/19/20) A-FIB/CHADSVASC A-FIB History Current/History of A-Fib/PAF?: No Age/Risk Factor Scoring CHADSVASC: CHADSVASC Response (Comments) Value Age Risk Factor Age >/= 75 years old 2 Gender Risk Factor Male 0 Hx of CHF No 0 Hx of HTN Yes 1 Hx of Stroke/TIA/or VTE Yes 2 Hx of Diabetes No 0 Hx of Vascular Disease Yes 1 Total 6 Treatment Treatment ordered: NONE URBANO GARSIA MD Jul 19, 2020 19:47
[2020-07-19] MEDS: **NOTE PATIENT COMMENT** MISC XX SCH (21:00)
--- NOTE | 2020-07-19 21:42 | ECGEPIP ---
[facility] - ED Test Date: 2020-07-19 Pat Name: CHERYL BERMAN Department: Room: - Gender: Male Sample Builder: HARISH : 1940 Requested By: TANIA VALLE Order Number: [id number] Reading MD: Paris Zuleta Measurements Intervals Stephenson Rate: 67 P: 22 NC: 195 QRS: -36 QRSD: 90 T: -20 QT: 432 QTc: 456 Interpretive Statements SINUS RHYTHM INFERIOR MYOCARDIAL INFARCTION, OF INDETERMINATE AGE NSTTW abnormalities NO PRIOR Electronically Signed on 07-19-2020 21:42:35 EST by Paris Zuleta
[2020-07-19 21:53] VITALS: BP 150/90
[2020-07-19] MEDS: VITAMIN D 1,000 INTERNATIONAL UNITS TABLET PO SCH (22:22)
[2020-07-19] MEDS: FINASTERIDE 5 MG TAB PO SCH (22:22)
[2020-07-19] MEDS: ROSUVASTATIN 10 MG TAB (CRESTOR) PO SCH (22:22)
[2020-07-19] MEDS: ACETAMINOPHEN 500 MG TAB PO SCH (22:22)
[2020-07-19] MEDS: SENOKOT S TAB PO SCH (22:22)
[2020-07-19] MEDS: METOPROLOL SUCC *XL* 25MG TAB (TopROL *XL*) PO SCH (22:23)
[2020-07-19] MEDS: TAMSULOSIN 0.4 MG CAP PO SCH (22:23)
[2020-07-20 06:00] VITALS: BP 160/92
[2020-07-20 06:46] LABS: HEMATOCRIT 26.7 % (42.0-52.0); HEMOGLOBIN 8.8 g/dl (13.5-17.5); PLATELET COUNT, AUTOMATED 168 10^3/uL (150-450); RED BLOOD COUNT 2.67 10^6/uL (4.30-6.10); WHITE BLOOD COUNT 8.3 10^3/uL (4.0-10.0)
[2020-07-20 07:05] LABS: CALCIUM LEVEL 8.5 MG/DL (8.8-10.2); CREATININE FOR GFR 2.72 MG/DL (0.70-1.30); GLOMERULAR FILTRATION RATE 24.1 (>35); POTASSIUM SERUM 3.9 MEQ/L (3.5-5.1)
[2020-07-20] MEDS: CitaloPRAM (CeleXA) 20 MG TAB PO SCH (08:05)
[2020-07-20] MEDS: LIDOCAINE 5% (LIDODERM) PATCH TD SCH (08:05)
[2020-07-20] MEDS: OMEPRAZOLE 20 MG CAP PO SCH (08:05)
[2020-07-20] MEDS: FERROUS SULFATE 325MG TAB PO SCH (08:05)
[2020-07-20] MEDS: VITAMIN D 1,000 INTERNATIONAL UNITS TABLET PO SCH ×2 (08:05→21:35)
[2020-07-20] MEDS: ASPIRIN ENTERIC 325 MG TAB PO SCH (08:05)
[2020-07-20] MEDS: SUCRALFATE 1 GM TAB PO SCH ×3 (08:05→17:24)
[2020-07-20] MEDS: ACETAMINOPHEN 500 MG TAB PO SCH ×3 (08:09→21:35)
[2020-07-20] MEDS ORDERED: ACET-683 PO (08:43)
--- NOTE | 2020-07-20 12:30 | DS.PDOC ---
Discharge Summary General Date of Admission Jul 19, 2020 at 13:29 Date of Discharge 07/20/20 Discharge Summary DISCHARGE DIAGNOSES: Recurrent falls Gait instability in the setting of multiple CVAs in the past Severe bilateral central canal spinal stenosis L3-L5 Abdominal aortic aneurysm measuring 5.3 cm and infrarenal area 6.6 cm descending thoracic upper abdominal [place] aneurysm chronic kidney disease stage III, hypercholesterolemia, depression with anxiety, osteoarthritis, memory deficit, Anemia of chronic disease Discharge medications: See below Discharge instructions: Primary care physician within one week of discharge. PCP to refer to orthopedic surgery. Her neurovascular surgery regarding spinal stenosis. Patient is to continue with his home physical therapy. Fall risk precautions assisted ambulation and ambulation with walker only. Patient is to have one person assistance at all times at home due to recurrent risk of falls. HISTORY OF PRESENT ILLNESS: 79-year-old male with past medical history significant for chronic kidney disease stage III, hypercholesterolemia, depression with anxiety, osteoarthritis, nocturia, macrocytosis, memory deficit, thoracic aortic aneurysm without rupture. 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 His daughter was able to catch it before he hit his head and reach the floor. Patient has noticed increasing weakness of his knees since last spring. He is usually able to mow the lawn but has been unable to do this. Patient's balance has been worsened in the past 2-3 weeks and has had about 3 falls in the past 3 weeks despite using his walker at home. He denies any back pain or radiating pain from the back to the foot or behind the knee. He has not sought any help from his primary care physician regarding his chronic spinal stenosis. He denies having any steroid injections. Pain management referral or or either neurosurgical or orthopedic referral. He otherwise denied any palpitations, lightheadedness, dizziness, shortness of breath prior to the episode. He has been in his usual state of health and denied any fever, chills, headache, sore throat, tinnitus, vertigo, visual changes, diplopia, blurred vision, ear pain, neck pain, chest pain, pressure, tightness, near syncope, nausea, vomiting, diarrhea, abdominal pain, dysuria, urgency, frequency, flank pain, polyuria, polydipsia, weight gain, weight loss, changes in appetite, skin rash, abnormal nodules or joint pains. In the emergency room, a CT lumbar spine shows high- grade central spinal canal and lateral recess stenosis at L3-L4, L4-L5, mild to moderate central spinal canal stenosis lower thoracicoabdominal aneurysms as above. X-rays of bilateral knees have no fracture but with tricompartmental osteoarthritic changes. CT of the head is chronic, old infarcts with no intracranial hemorrhage. Patient was evaluated by physical therapy and recommended observation to improve patient's balance. hospitalist was called to admit.Due to recent recurrent falls. Patient was be admitted for observation for physical therapy services. He did not had any prodromal symptoms to suggest a medical illness prior to the fall. Patient admits to having some gait instability, most likely secondary to multiple CVAs. He otherwise denied any acute ischemic symptoms prior to the episode. He certainly did not have any acute infectious process currently or in the past 2 days, though it causes si gnificant weakness. However, no infectious process was found. Physical therapy, occupational therapy have been consulted. Fall precautions. Activity as tolerated but with assisted ambulation only. Patient is to walk with his walker at all times. He was resumed on all his home medications. He currently denies any pain in the knees or the back. DVT prophylaxis with compression stockings. Patient is to resume his home physical therapy to improve his balance. He is to have assisted ambulation with 1 person assistance at home at all times. DISCHARGE PHYSICAL EXAMINATION: VITAL SIGNS: See below Generally patient is awake, alert, oriented 3, answering questions appropriately . HEENT: Pupils round, reactive to light accommodation. Extra muscles intact. No normocephalic, atraumatic. No carotid bruit no JVD or thyromegaly. Lungs: Clear to auscultation. No wheezing, rales or rhonchi. No adventitious breath sounds. Air entry is equal bilaterally. No kyphoscoliosis . Heart: S1, S2, sinus rhythm. Abdomen: Soft nontender nondistended positive bowel sounds 4 quadrants . Positive abdominal bruit . Extremity no cyanosis, clubbing or pitting edema . Skin no ecchymosis or hematomas noted. Bilateral lower extremities . Neuro patient has decreased sensation on the left lower extremity with some n umbness. Motor function is 5 out of 54 extremities. Patient has negative straight-leg test bilaterally DISCHARGE LABORATORY DATA: See below. IMAGING: CT head 07/19/2020, right parietal, left parieto-occipital transcortical infarct, probably chronic focal chronic appearing bilateral caudate lacunar infarct. Brain demonstrates generalized volume loss patch hypodensity in deep white matter, most likely representing chronic small vessel ischemic change, no hemorrhage. Ventricles are mildly enlarged. In keeping with volume loss, chronic sigmoid deviation of the nasal septum. No acute calvarial fracture, no intracranial hemorrhage X-ray bilateral knees 07/19/2020: Right. He demonstrates early advanced tricompartmental osteoarthritic degenerative changes left knee demonstrates mild tricompartmental osteophytic changes Lumbar spine CT 07/19/2020, high-grade central spinal canal lateral recess stenosis at L3-L4, mild to moderate central canal spinal stenosis L4-L5 lower thoracicoabdominal aneurysms infrarenal Aguilar aneurysm is partially visualized with transverse diameter measuring up to 5.3 cm upper abdominal aortic aneurysm measures up to 6.6 cm there is a lower thoracic stent graft MICROBIOLOGY: Please see below. Time spent on hospital discharge 30 minutes. . Vital Signs/I&Os Vital Signs Date Time Temp Pulse Resp B/P (MAP) Pulse Ox O2 Delivery O2 Flow Rate FiO2 07/20/20 06:00 96.9 65 18 160/92 (114) 95 Room Air I&O- Last 24 Hours up to 6 AM 07/20/20 06:00 Intake Total 60 ml Output Total 300 ml Balance -240 ml Laboratory Data Labs 24H Laboratory Tests 2 07/19/20 16:54: Immature Granulocyte % (Auto) 0.5, Neutrophils (%) (Auto) 67.9H, Lymphocytes (%) (Auto) 15.9L, Monocytes (%) (Auto) 11.2H, Eosinophils (%) (Auto) 4.2H, Basophils (%) (Auto) 0.3, Neutrophils # (Auto) 5.2, Lymphocytes # (Auto) 1.2L, Monocytes # (Auto) 0.9H, Eosinophils # (Auto) 0.3, Basophils # (Auto) 0.0, Nucleated Red Blood Cells % (auto) 0.0, Anion Gap 7L, Glomerular Filtration Rate 23.5L, Calcium Level 8.7L, Magnesium Level 2.1, Total Creatine Kinase 114, Creatine Kinase MB 2.7, Creatine Kinase MB Relative Index 2.37, Troponin I < 0.02, Th yroid Stimulating Hormone (TSH) 2.500 07/19/20 19:24: Coronavirus (COVID-19)(PCR) NEGATIVE 07/20/20 05:59: Nucleated Red Blood Cells % (auto) 0.0, Anion Gap 7L, Glomerular Filtration Rate 24.1L, Calcium Level 8.5L CBC/BMP Laboratory Tests 07/19/20 16:54 07/20/20 05:59 Discharge Medications Scheduled Acetaminophen (Acetaminophen) 500 Mg Tablet, 1,000 MG PO TID Aspirin (Aspirin EC) 325 Mg Tablet.dr, 325 MG PO DAILY, (Reported) Cholecalciferol (Vitamin D3) (Vitamin D3) 1,000 Unit Tablet, 2,000 UNITS PO BID, (Reported) Citalopram Hydrobromide (Celexa) 20 Mg Tablet, 20 MG PO DAILY, (Reported) Ferrous Sulfate (Iron) 325 Mg Tablet, 65 MG PO 3XW, (Reported) TUES, THURS, SAT Finasteride (Finasteride) 5 Mg Tablet, 5 MG PO QHS, (Reported) Melatonin (Melatonin) 5 Mg Tablet, 5 MG PO QHS, (Reported) Metoprolol Succinate (Metoprolol Succinate) 25 Mg Tab.er.24h, 25 MG PO QHS, (Reported) Omeprazole (Omeprazole) 20 Mg Cap, 40 MG PO DAILY, (Reported) Rosuvastatin Calcium (Crestor) 20 Mg Tablet, 20 MG PO Q2D, (Reported) AT BEDTIME Sennosides/Docusate Sodium (Senna-S Tablet) 1 Each Tablet, 1 TAB PO QHS, (Reported) Sucralfate (Sucralfate) 1 Gm Tablet, 1 GM PO AC, (Reported) Tamsulosin HCl (Flomax) 0.4 Mg Capsule, 0.4 MG PO QHS, (Reported) [Arthro] , 1 TAB PO BID, (Reported) Scheduled PRN Sennosides/Docusate Sodium (Senna-S Tablet) 1 Each Tablet, 1 TAB PO DAILY PRN for CONSTIPATION, (Reported) Allergies Coded Allergies: prochlorperazine (Verified Allergy, Severe, TONGUE SWELLING, 07/19/20) URBANO GARSIA MD Jul 20, 2020 12:30
[2020-07-20 14:00] VITALS: BP 161/96
[2020-07-20] MEDS: NITROGLYCERIN 2% OINT 1 GM *U/D* PKT TOP SCH ×3 (15:33→23:29)
[2020-07-20] MEDS: SENOKOT S TAB PO SCH (21:35)
[2020-07-20] MEDS: TAMSULOSIN 0.4 MG CAP PO SCH (21:35)
[2020-07-20] MEDS: FINASTERIDE 5 MG TAB PO SCH (21:35)
[2020-07-20] MEDS: METOPROLOL SUCC *XL* 25MG TAB (TopROL *XL*) PO SCH (21:37)
[2020-07-20] MEDS: **NOTE PATIENT COMMENT** MISC XX SCH (21:38)
[2020-07-20 22:00] VITALS: BP 140/90
[2020-07-20 22:24] LABS: CALCIUM LEVEL 8.2 MG/DL (8.8-10.2); CREATININE FOR GFR 2.72 MG/DL (0.70-1.30); GLOMERULAR FILTRATION RATE 24.1 (>35); POTASSIUM SERUM 3.9 MEQ/L (3.5-5.1)
[2020-07-21] MEDS: NITROGLYCERIN 2% OINT 1 GM *U/D* PKT TOP SCH ×6 (02:58→23:00)
[2020-07-21 06:00] VITALS: BP 154/95
[2020-07-21 07:08] LABS: HEMATOCRIT 26.4 % (42.0-52.0); HEMOGLOBIN 8.6 g/dl (13.5-17.5); MEAN CORPUSCULAR HGB CONC 32.6 g/dl (32.0-36.5); MEAN CORPUSCULAR VOLUME 101.1 fl (80.0-96.0); PLATELET COUNT, AUTOMATED 157 10^3/uL (150-450); RED BLOOD COUNT 2.61 10^6/uL (4.30-6.10); WHITE BLOOD COUNT 7.7 10^3/uL (4.0-10.0)
[2020-07-21 07:37] LABS: CALCIUM LEVEL 8.6 MG/DL (8.8-10.2); CREATININE FOR GFR 2.68 MG/DL (0.70-1.30); GLOMERULAR FILTRATION RATE 24.5 (>35); POTASSIUM SERUM 4.6 MEQ/L (3.5-5.1)
[2020-07-21] MEDS: OMEPRAZOLE 20 MG CAP PO SCH (09:02)
[2020-07-21] MEDS: CitaloPRAM (CeleXA) 20 MG TAB PO SCH (09:02)
[2020-07-21] MEDS: SUCRALFATE 1 GM TAB PO SCH ×3 (09:02→17:48)
[2020-07-21] MEDS: VITAMIN D 1,000 INTERNATIONAL UNITS TABLET PO SCH ×2 (09:03→21:11)
[2020-07-21] MEDS: ASPIRIN ENTERIC 325 MG TAB PO SCH (09:03)
[2020-07-21] MEDS: ACETAMINOPHEN 500 MG TAB PO SCH ×3 (09:03→21:12)
[2020-07-21] MEDS: LIDOCAINE 5% (LIDODERM) PATCH TD SCH (09:03)
[2020-07-21] MEDS ORDERED: BISACODYL 5 MG TAB PO PRN (10:45)
--- NOTE | 2020-07-21 10:48 | IPNPDOC ---
Date Seen The patient was seen on 07/21/20. Progress Note SUBJECTIVE: Discharge postponed because family cannot provide 24/7 care at home. Pt is being evaluated for ARU vs SNF placement. BP has been high,but denies headache, changes in vision, chest pain, pressure, tightness, lightheadedness, dizziness, or shortness of breath. Patient complains of bi lateral knee Weakness causing his fall at home. Further daughter, patient has had 3 falls at home. He has a known history of spinal stenosis, but has not seen a neurosurgeon or orthopedic surgeon in the past.. He denies any urinary or bowel incontinence. No fever, chills overnight. He does complain of some pain when he walks on his bilateral lower extremities PHYSICAL EXAMINATION: VITAL SIGNS: See below Generally patient is awake, alert, oriented 3, answering questions appropriately . HEENT: . No carotid bruit no JVD or thyromegaly. Lungs: No wheezing, rales or rhonchi. No adventitious breath sounds. Air entry is equal bilaterally. Clear to auscultation bilaterally . Heart: S1, S2, sinus rhythm. Abdomen: Soft nontender distended positive bowel sounds 4 quadrants . Positive abdominal bruit . Extremity no cyanosis, clubbing or pitting edema . Skin no ecchymosis or hematomas noted. Bilateral lower extremities . Neuro patient has decreased sensation on the left lower extremity with some numbness. Motor function is 5 out of 54 extremities. Patient has negative straight-leg test bilaterally LABORATORY DATA: See below. IMAGING: CT head 07/19/2020, right parietal, left parieto-occipital transcortical infarct, probably chronic focal chronic appearing bilateral caudate lacunar infarct. Brain demonstrates generalized volume loss patch hypodensity in deep white matter, most likely representing chronic small vessel ischemic change, no hemorrhage. Ventricles are mildly enlarged. In keeping with volume loss, chronic sigmoid deviation of the nasal septum. No acute calvarial fracture, no intracranial hemorrhage X-ray bilateral knees 07/19/2020: Right. He demonstrates early advanced tricompartmental osteoarthritic degenerative changes left knee demonstrates mild tricompartmental osteophytic changes Lumbar spine CT 07/19/2020, high-grade central spinal canal lateral recess stenosis at L3-L4, mild to moderate central canal spinal stenosis L4-L5 lower thoracicoabdominal aneurysms infrarenal Aguilar aneurysm is partially visualized with transverse diameter measuring up to 5.3 cm upper abdominal aortic aneurysm measures up to 6.6 cm there is a lower thoracic stent graft MICROBIOLOGY: Please see below. ASSESSMENT: 79-year-old male with past medical history significant for chronic kidney disease stage III, hypercholesterolemia, depression with anxiety, osteoarthritis, nocturia, macrocytosis, memory deficit, thoracic aortic aneurysm without rupture. Reflux disease, abdominal aortic aneurysm without rupture and elevated fasting glucose laminectomy for herniated nucleus pulposus at L4-L5 inguinal hernia, colonoscopy, left shoulder arthroscopy, colonoscopy stent placement in the aorta thoracicoabdominal aortic aneurysm repair with graft thoracic endovascular aortic repair with SURGICAL NURSE stroke at [facility] was in his usual state of health until today when his knees gave out while he was getting ready to go to physical therapy in his living room and fell to his knees. His daughter was able to catch it before he hit his head and reach the floor. Patient has noticed increasing weakness of his knees since last spring. He is usually able to mow the lawn but has been unable to do this. Patient's balance has been worsened in the past 2-3 weeks and has had about 3 falls in the past 3 weeks despite using his walker at home. He denies any back pain or radiating pain from the back to the foot or behind the knee. He has not sought any help from his primary care physician regarding his chronic spinal stenosis. He denies having any steroid injections. Pain management referral or or either neurosurgical or orthopedic referral. He otherwise denied any palpitations, lightheadedness, dizziness, shortness of breath prior to the episode. He has been in his usual state of health and denied any fever, chills, headache, sore throat, tinnitus, vertigo, visual changes, diplopia, blurred vision, ear pain, neck pain, chest pain, pressure, tightness, near syncope, nausea, vomiting, diarrhea, abdominal pain, dysuria, urgency, frequency, flank pain, polyuria, polydipsia, weight gain, weight loss, changes in appetite, skin rash, abnormal nodules or joint pains. In the emergency room, a CT lumbar spine shows high- grade central spinal canal and lateral recess stenosis at L3-L4, L4-L5, mild to moderate central spinal canal stenosis lower thoracicoabdominal aneurysms as above. X-rays of bilateral knees have no fracture but with tricompartmental osteoarthritic changes. CT of the head is chronic, old infarcts with no intracranial hemorrhage. Patient was evaluated by physical therapy and recommended observation to improve patient's balance. hospitalist was called to admit. Recurrent falls Gait instability in the setting of multiple CVAs in the past Severe bilateral central canal spinal stenosis L3-L5 HTN urgency, resolved Abdominal aortic aneurysm measuring 5.3 cm and infrarenal area 6.6 cm descending thoracic upper abdominal aortic aneurysm chronic kidney disease stage III-IV, hypercholesterolemia, depression with anxiety, osteoarthritis, memory deficit, , Constipation . PLAN: To further evaluate patient's complains of bilateral lower extremity pain when he ambulates. We will obtain a bilateral arterial Dopplers to rule out upper for general disease and claudication. MRI of the lumbar spine to rule out cord compression. In light of recurrent weakness and falls at home. Patient's blood pressure is improved but still requires slight titration., He needs to follow-up with his vascular surgeon regarding his aortic aneurysm and we will need to make sure his blood pressure does not increase more than 200 mmhg systolic. Bowel regimen as needed. Monitor patient's creatinine and adjust all medications renally. Avoid nephrotoxins. VS, I&O, 24H, Fishbone Vital Signs/I&O Vital Signs Date Time Temp Pulse Resp B/P (MAP) Pulse Ox O2 Delivery O2 Flow Rate FiO2 07/21/20 06:00 98.2 67 18 154/95 (114) 95 Room Air I&O- Last 24 Hours up to 6 AM 07/21/20 06:00 Intake Total 690 ml Output Total 700 ml Balance -10 ml Laboratory Data 24H LABS Laboratory Tests 2 07/20/20 21:49: Anion Gap 8, Glomerular Filtration Rate 24.1L, Calcium Level 8.2L 07/21/20 06:48: Anion Gap 4L, Glomerular Filtration Rate 24.5L, Calcium Level 8.6L, Nucleated Red Blood Cells % (auto) 0.0 CBC/BMP Laboratory Tests 07/20/20 21:49 07/21/20 06:48 URBANO GARSIA MD Jul 21, 2020 08:50
[2020-07-21 11:14] LABS: PERCENT SATURATION 20.2 % (19.7-50.0)
[2020-07-21] MEDS: SENOKOT S TAB PO SCH ×2 (11:37→21:10)
[2020-07-21] MEDS: MIRALAX *UNIT DOSE* 17GM PACKET PO SCH ×3 (11:53→21:10)
[2020-07-21 13:26] VITALS: BP 152/96
--- NOTE | 2020-07-21 13:40 | REPVR ---
PROCEDURE INFORMATION: Exam: MR Lumbar Spine Without Contrast. Exam date and time: 07/21/2020 1:08 PM Age: 79 years old Clinical indication: Low back pain; Prior surgery; Surgery date: 6+ months; Additional info: R/O cord compression. B/l le weakness spine stenosis TECHNIQUE: Imaging protocol: Multiplanar magnetic resonance images of the lumbar spine without intravenous contrast. COMPARISON: CT Spine, lumbar w/o contrast 07/19/2020 2:25 PM FINDINGS: Vertebrae: Unremarkable. Spinal cord: Normal signal. No cord compression. L1-L2: There is mild retrolisthesis at this level. There is degenerative disc disease including disc space narrowing and dessication. There is mild disc bulging. L2-L3: There is disc space narrowing and desiccation. There are moderate degenerative end plate changes at this level. There is a moderate disc/osteophyte complex that flattens the ventral thecal sac. There is significant compromise of the lateral recesses bilaterally, left worse than right. There is moderate bilateral neural foraminal narrowing. There is facet arthropathy and ligamentum flavum hypertrophy. There is moderate spinal canal stenosis. L3-L4: There is grade 1 anterior spondylolisthesis at L3/4. There is degenerative disc disease including disc space narrowing and dessication. There is mild disc bulging. There is moderate left-sided neuroforaminal narrowing. There is mild right-sided neuroforaminal narrowing. There is exuberant bilateral facet arthropathy and ligamentum flavum hypertrophy. There is moderate spinal canal stenosis. L4-L5: There is disc space narrowing and desiccation. There are moderate degenerative end plate changes at this level. There is a moderate disc/osteophyte complex, partial toward the right, that flattens the ventral thecal sac and compromises the right neural foramen. There is moderate right-sided neuroforaminal narrowing. There is compromise of the right lateral recess. There is exuberant bilateral facet arthropathy and ligamentum flavum hypertrophy. There is a suspected 6 mm right-sided synovial cyst which contributes to narrowing of the right lateral recess. There is mild spinal canal stenosis. L5-S1: There is disc space narrowing and desiccation. There are moderate degenerative end plate changes at this level. There is moderate disc bulging. There is moderate bilateral neural foraminal narrowing. There is exuberant bilateral facet arthropathy and ligamentum flavum hypertrophy. There is mild spinal canal stenosis. Soft tissues: Unremarkable. Vasculature: There are atherosclerotic changes of the abdominal aorta and aneurysmal dilatation of the infrarenal abdominal aorta measuring as large as 5.5 cm. This is not fully characterized on this exam. This was reported on patient's recent lumbar spine CT scan. The urinary bladder is moderately distended. IMPRESSION: 1. There are atherosclerotic changes of the abdominal aorta and aneurysmal dilatation of the infrarenal abdominal aorta measuring as large as 5.5 cm. This is not fully characterized on this exam. This was reported on patient's recent lumbar spine CT scan. 2. Advanced multilevel degenerative changes causing variable degrees of spinal canal and neuroforaminal narrowing as described above. Spinal canal stenosis is most severe at L3/4. Please see details above. 3.The urinary bladder is moderately distended, please correlate clinically. Electronically signed by: Laz Worthington On 07/21/2020 13:40:13 PM
[2020-07-21] MEDS: FINASTERIDE 5 MG TAB PO SCH (21:10)
[2020-07-21] MEDS: METOPROLOL SUCC *XL* 25MG TAB (TopROL *XL*) PO SCH (21:11)
[2020-07-21] MEDS: ROSUVASTATIN 10 MG TAB (CRESTOR) PO SCH (21:11)
[2020-07-21] MEDS: TAMSULOSIN 0.4 MG CAP PO SCH (21:11)
[2020-07-21] MEDS: **NOTE PATIENT COMMENT** MISC XX SCH (21:12)
[2020-07-21 22:00] VITALS: BP 152/93
[2020-07-22] MEDS: NITROGLYCERIN 2% OINT 1 GM *U/D* PKT TOP SCH ×6 (03:05→22:47)
[2020-07-22 06:00] VITALS: BP 151/87
[2020-07-22 06:30] LABS: HEMATOCRIT 25.9 % (42.0-52.0); HEMOGLOBIN 8.4 g/dl (13.5-17.5); MEAN CORPUSCULAR HEMOGLOBIN 32.9 pg (27.0-33.0); MEAN CORPUSCULAR HGB CONC 32.4 g/dl (32.0-36.5); MEAN CORPUSCULAR VOLUME 101.6 fl (80.0-96.0); PLATELET COUNT, AUTOMATED 155 10^3/uL (150-450); RED BLOOD COUNT 2.55 10^6/uL (4.30-6.10); WHITE BLOOD COUNT 8.1 10^3/uL (4.0-10.0)
[2020-07-22 06:48] LABS: CALCIUM LEVEL 8.4 MG/DL (8.8-10.2); CREATININE FOR GFR 2.63 MG/DL (0.70-1.30)
[2020-07-22] MEDS: SUCRALFATE 1 GM TAB PO SCH ×3 (07:50→17:17)
[2020-07-22] MEDS: VITAMIN D 1,000 INTERNATIONAL UNITS TABLET PO SCH ×2 (09:10→20:57)
[2020-07-22] MEDS: SENOKOT S TAB PO SCH ×2 (09:10→20:58)
[2020-07-22] MEDS: ACETAMINOPHEN 500 MG TAB PO SCH ×3 (09:10→21:00)
[2020-07-22] MEDS: LIDOCAINE 5% (LIDODERM) PATCH TD SCH (09:10)
[2020-07-22] MEDS: MIRALAX *UNIT DOSE* 17GM PACKET PO SCH ×2 (09:10→20:58)
[2020-07-22] MEDS: ASPIRIN ENTERIC 325 MG TAB PO SCH (09:11)
[2020-07-22] MEDS: CitaloPRAM (CeleXA) 20 MG TAB PO SCH (09:11)
[2020-07-22] MEDS: OMEPRAZOLE 20 MG CAP PO SCH (09:11)
--- NOTE | 2020-07-22 09:23 | IPNPDOC ---
Date Seen The patient was seen on 07/22/20. Progress Note Thank you very much. I didn't know the name SUBJECTIVE: Patient complains of 8 out of 10 pain in his lower back going down the bilateral feet. No fever, chills. Patient is requesting pain medications now. His discharge has been postponed due to significant debility from spinal stenosis and family cannot provide 24 7 care. MRI of the lumbar spine performed yesterday is to be reviewed by orthopedic surgery, . Pain management phobias consulted for chronic pain PHYSICAL EXAMINATION: VITAL SIGNS: See below Generally patient is awake, alert, oriented 3, answering questions appropr iately . HEENT: . No carotid bruit no JVD or thyromegaly.. Dry mucous membranes Lungs: No respiratory distress or use of respiratory accessory muscles No adventitious breath sounds. Air entry is equal bilaterally. Clear to auscultation bilaterally . Heart: S1, S2, sinus rhythm. Abdomen: Soft nontender distended positive bowel sounds 4 quadrants . Positive abdominal bruit . Extremity no cyanosis, clubbing or pitting edema . Skin no ecchymosis or hematomas noted. Bilateral lower extremities . Neuro patient has decreased sensation on the left lower extremity with some numbness. Motor function is 5 out of 54 extremities. Patient has negative straight-leg test bilaterally LABORATORY DATA: See below. IMAGING: CT head 07/19/2020, right parietal, left parieto-occipital transcortical infar ct, probably chronic focal chronic appearing bilateral caudate lacunar infarct. Brain demonstrates generalized volume loss patch hypodensity in deep white matter, most likely representing chronic small vessel ischemic change, no hemorrhage. Ventricles are mildly enlarged. In keeping with volume loss, chronic sigmoid deviation of the nasal septum. No acute calvarial fracture, no intracranial hemorrhage X-ray bilateral knees 07/19/2020: Right. He demonstrates early advanced tricompartmental osteoarthritic degenerative changes left knee demonstrates mild tricompartmental osteophytic changes Lumbar spine CT 07/19/2020, high-grade central spinal canal lateral recess stenosis at L3-L4, mild to moderate central canal spinal stenosis L4-L5 lower thoracicoabdominal aneurysms infrarenal Aguilar aneurysm is partially visualized with transverse diameter measuring up to 5.3 cm upper abdominal aortic aneurysm measures up to 6.6 cm there is a lower thoracic stent graft MICROBIOLOGY: Please see below. ASSESSMENT: 79-year-old male with past medical history significant for chronic kidney disease stage III, hypercholesterolemia, depression with anxiety, osteoarthritis, nocturia, macrocytosis, memory deficit, thoracic aortic aneurysm without rupture. Reflux disease, abdominal aortic aneurysm without rupture and elevated fasting glucose laminectomy for herniated nucleus pulposus at L4-L5 inguinal hernia, colonoscopy, left shoulder arthroscopy, colonoscopy stent placement in the aorta thoracicoabdominal aortic aneurysm repair with graft thoracic endovascular aortic repair with [employer] stroke at [facility] was in his usual state of health until today when his knees gave out while he was getting ready to go to physical therapy in his living room and fell to his knees. His daughter was able to catch it before he hit his head and reach the floor. Patient has noticed increasing weakness of his knees since last spring. He is usually able to mow the lawn but has been unable to do this. Patient's balance has been worsened in the past 2-3 weeks and has had about 3 falls in the past 3 weeks despite using his walker at home. He denies any back pain or radiating pain from the back to the foot or behind the knee. He has not sought any help from his primary care physician regarding his chronic spinal stenosis. He denies having any steroid injections. Pain management referral or or either neurosurgical or orthopedic referral. He otherwise denied any palpitations, lightheadedness, dizziness, shortness of breath prior to the episode. He has been in his usual state of health and denied any fever, chills, headache, sore throat, tinnitus, vertigo, visual changes, diplopia, blurred vision, ear pain, neck pain, chest pain, pressure, tightness, near syncope, nausea, vomiting, di arrhea, abdominal pain, dysuria, urgency, frequency, flank pain, polyuria, polydipsia, weight gain, weight loss, changes in appetite, skin rash, abnormal nodules or joint pains. In the emergency room, a CT lumbar spine shows high- grade central spinal canal and lateral recess stenosis at L3-L4, L4-L5, mild to moderate central spinal canal stenosis lower thoracicoabdominal aneurysms as above. X-rays of bilateral knees have no fracture but with tricompartmental osteoarthritic changes. CT of the head is chronic, old infarcts with no intracranial hemorrhage. Patient was evaluated by physical therapy and recommended observation to improve patient's balance. hospitalist was called to admit. Recurrent falls Gait instability in the setting of multiple CVAs in the past Severe bilateral central canal spinal stenosis L3-L5 HTN urgency, resolved Abdominal aortic aneurysm measuring 5.3 cm and infrarenal area 6.6 cm descending thoracic upper abdominal aortic aneurysm chronic kidney disease stage III-IV, hypercholesterolemia, depression with anxiety, osteoarthritis, memory deficit, , Constipation . PLAN: await ortho recommendations. ARU screen. pain meds. pain mgt consult. assisted ambulation only. possible rehab or placement. VS, I&O, 24H, [place] Vital Signs/I&O Vital Signs Date Time Temp Pulse Resp B/P (MAP) Pulse Ox O2 Delivery O2 Flow Rate FiO2 07/22/20 06:42 138/96 07/22/20 06:00 96.9 65 17 94 Room Air I&O- Last 24 Hours up to 6 AM 07/22/20 06:00 Intake Total 1200 ml Output Total 425 ml Balance 775 ml Laboratory Data 24H LABS Laboratory Tests 2 07/22/20 05:48: Nucleated Red Blood Cells % (auto) 0.0, Anion Gap 6L, Glomerular Filtration Rate 25.0L, Calcium Level 8.4L CBC/BMP Laboratory Tests 07/22/20 05:48 URBANO GARSIA MD Jul 22, 2020 09:23
[2020-07-22] MEDS ORDERED: PERCOCET 5MG/325MG TAB PO ONE ×2 (09:30→18:30)
[2020-07-22] MEDS: POLYVINYL ALCOHOL OPHTH SOLN 15 ML(LIQUITEARS) OU PRN ×2 (10:07→21:44)
--- NOTE | 2020-07-22 12:38 | REP ---
INDICATION: AAA ANEMIC R/O DISSECTION. COMPARISON: 06/12/2019. TECHNIQUE: Real-time sonographic evaluation of abdominal aorta performed. FINDINGS: Proximal abdominal aorta is dilated 5.3 x 5.4 cm, with the dilatation extending for a length of about 10 cm. At the level of the renal arteries dimensions are 3.0 x 3.7 cm and just below that 2.8 x 3.4 cm. There is fusiform aneurysmal dilatation of the distal abdominal aorta 5.1 x 5.3 cm extending for a length of about 12 cm. There is increased mural thrombus anteriorly both proximally and distally. I cannot exclude some the element of aortic dissection with thrombosis of the false lumen. Recommend CT with contrast to further evaluate for dissection or leakage. Common iliac arteries appear ectatic, right measuring approximately 2 cm and left 1.7 cm in diameter. IMPRESSION: Fusiform dilatation of both proximal and distal abdominal aorta as discussed above. Maximum diameter in the AP dimension proximally is 5.3 cm and distally 5.1 cm. The diameter proximally has mildly increased since the prior ultrasound of 06/12/2019. Also there appears to be increased mural thrombus anteriorly both proximally and distally raising suspicion of dissection with thrombosis of the false lumen. Recommend CT with IV contrast of the thoracic and abdominal aorta to rule out dissection and rupture. Critical Findings: Diffuse aneurysmal dilatation of the abdominal aorta with possible dissection and thrombosis of the false lumen. Recommend CT of thoracic and abdominal aorta with IV contrast to rule out dissection and rupture. The critical information above was relayed directly by me by telephone to URBANO GARSIA on 07/22/2020 at 12:33 pm with readback verification. <Electronically signed by Melecio Garcia > 07/22/20 [id number]
--- NOTE | 2020-07-22 13:03 | REP ---
INDICATION: pain. r/o peripheral arterial disease . COMPARISON: None. TECHNIQUE: Real time garcia scale and color Doppler evaluation of the bilateral lower extremity arterial vasculature using linear high frequency transducer. FINDINGS: Garcia scale and color images demonstrate mild to moderate amounts of atheromatous plaquing with 2:1 stenosis at the level of the right common femoral artery/profundus. Doppler interrogation demonstrates triphasic and biphasic arterial wave forms with relatively normal velocities bilaterally. Peak systolic velocities (cm/sec) Common femoral artery: Right 89.7; Left 92.5 Profunda femoris: Right 167.7; Left 60.1 SFA (proximal): Right 75.2; Left 64.9 SFA (mid): Right 75.9; Left 75.2 SFA (distal): Right 41.2; Left 52.4 Popliteal artery: Right 62.9; Left 52.1 ROSALBA (prox.): Right 63.5; Left 56.4 Tibioperoneal trunk: Right 78.4; Left 44.1 DRESSER TENDER (prox.): Right 63.1; Left 66.2 DRESSER TENDER (distal): Right 26.9; Left 41.2 ROSALBA (distal): Right 68.9; Left 83.9 IMPRESSION: Atheromatous changes with no significant areas of stenosis or occlusion. Single focal area of stenosis involving the right common femoral artery/profundus. <Electronically signed by Angel Salamanca > 07/22/20 [id number]
[2020-07-22] MEDS: amLODIPine 5 MG TAB PO SCH ×2 (13:33→20:58)
[2020-07-22 14:00] VITALS: BP 140/95
--- NOTE | 2020-07-22 14:13 | CR.PDOC ---
General Date of Consultation: Jul 22, [address] Cast HISTORY OF PRESENT ILLNESS: The patient is an 79-year-old male admitted 07/19/20 to the hospitalist service related to recurrent falls. Vascular surgery was consulted 07/22/20 regarding AAA, patient with back pain and hypertensive urgency, rule out dissection. ALLERGIES: Please see below. HOME MEDICATIONS: Please see below. PMH/PSH chronic kidney disease stage III, hypercholesterolemia, depression with anxiety, osteoarthritis, memory deficit, thoracic aortic aneurysm without rupture. Status post repair as per Dr Joey KAPLAN. abdominal aortic aneurysm without rupture . laminectomy for herniated nucleus pulposus at L4-L5 inguinal hernia, colonoscopy, left shoulder arthroscopy, H/O CVA SOCIAL HISTORY: Non smoker REVIEW OF SYSTEMS: As noted in HPI otherwise 11 point review of systems unremarkable. PHYSICAL EXAMINATION: VITAL SIGNS: Please see below. GENERAL APPEARANCE: NAD HEENT: MMM RESPIRATORY: CTA CARDIOVASCULAR: RRR Abd. soft, ND EXTREMITIES: well perfused NEUROLOGICAL: A/O PSYCHIATRIC: comfortable sitting on side of bed eating lunch. pleasant. Bilateral lower extremity arterial ultrasound 07/21/20 Atheromatous changes with no significant areas of stenosis or occlusion. Single focal area of stenosis involving the right common femoral artery/profundus. <Electronically signed by Angel Salamanca > 07/22/20 1259 AAA ANEMIC R/O DISSECTION. COMPARISON: 06/12/2019. TECHNIQUE: Real-time sonographic evaluation of abdominal aorta performed. FINDINGS: Proximal abdominal aorta is dilated 5.3 x 5.4 cm, with the dilatation extending for a length of about 10 cm. At the level of the renal arteries dimensions are 3.0 x 3.7 cm and just below that 2.8 x 3.4 cm. There is fusiform aneurysmal dilatation of the distal abdominal aorta 5.1 x 5.3 cm extending for a length of about 12 cm. There is increased mural thrombus anteriorly both proximally and distally. I cannot exclude some the element of aortic dissection with thrombosis of the false lumen. Recommend CT with contrast to further evaluate for dissection or leakage. Common iliac arteries appear ectatic, right measuring approximately 2 cm and left 1.7 cm in diameter. IMPRESSION: Fusiform dilatation of both proximal and distal abdominal aorta as discussed above. Maximum diameter in the AP dimension proximally is 5.3 cm and distally 5.1 cm. The diameter proximally has mildly increased since the prior ultrasound of 06/12/2019. Also there appears to be increased mural thrombus anteriorly both proximally and distally raising suspicion of dissection with thrombosis of the false lumen. Recommend CT with IV contrast of the thoracic and abdominal aorta to rule out dissection and rupture. Critical Findings: Diffuse aneurysmal dilatation of the abdominal aorta with possible dissection and thrombosis of the false lumen. Recommend CT of thoracic and a bdominal aorta with IV contrast to rule out dissection and rupture. The critical information above was relayed directly by me by telephone to URBANO GARSIA on 07/22/2020 at 12:33 pm with readback verification. <Electronically signed by Melecio Garcia > 07/22/20 1234 ASSESSMENT/PLAN: 1. AAA. Maximum diameter in the AP dimension proximally is 5.3 cm and distally 5.1 cm. Imaging is reviewed as per Dr Cast. Patient reports previous intervention for TAA with in [place]. The patient states he is scheduled to go back for a follow-up appointment with Dr. Cook, possibly to consider intervention for AAA, 08/01/20. Currently, the patient is sitting on the side of the bed eating lunch and states his back pain is improved. Suspicion for aortic dissection would be low with a waxing and waning pattern which is described by the patient currently. If there is concern for aortic dissection this would be best evaluated with CTA chest, abdomen, pelvis. If there is concern for contrast-induced nephropathy, could proceed with noncontrast CT however imaging may not be enough to completely rule out dissection. The patient plans to continue to follow up with Dr. Cook in [place] who is the patient's usual vascular surgeon. We are happy to follow-up with the patient if he no longer wishes to follow there otherwise would continue follow-up with his own vascular surgeon. Vital Signs/I&O Vital Signs Date Time Temp Pulse Resp B/P (MAP) Pulse Ox O2 Delivery O2 Flow Rate FiO2 07/22/20 13:33 64 140/95 07/22/20 10:37 16 07/22/20 06:00 96.9 94 Room Air I&O- Last 24 Hours up to 6 AM 07/22/20 06:00 Intake Total 1200 ml Output Total 425 ml Balance 775 ml Laboratory Data Labs 24H Laboratory Tests 2 07/22/20 05:48: Nucleated Red Blood Cells % (auto) 0.0, Anion Gap 6L, Glomerular Filtration Rate 25.0L, Calcium Level 8.4L CBC/BMP Laboratory Tests 07/22/20 05:48 Allergies Coded Allergies: prochlorperazine (Verified Allergy, Severe, TONGUE SWELLING, 07/19/20) Home Medications Scheduled Acetaminophen (Acetaminophen) 500 Mg Tablet, 1,000 MG PO TID for 5 Days, #15 Aspirin (Aspirin EC) 325 Mg Tablet.dr, 325 MG PO DAILY, (Reported) Cholecalciferol (Vitamin D3) (Vitamin D3) 1,000 Unit Tablet, 2,000 UNITS PO BID, (Reported) Citalopram Hydrobromide (Celexa) 20 Mg Tablet, 20 MG PO DAILY, (Reported) Ferrous Sulfate (Iron) 325 Mg Tablet, 65 MG PO 3XW, (Reported) TAURUS, JESSICA, SAT Finasteride (Finasteride) 5 Mg Tablet, 5 MG PO QHS, (Reported) Melatonin (Melatonin) 5 Mg Tablet, 5 MG PO QHS, (Reported) Metoprolol Succinate (Metoprolol Succinate) 25 Mg Tab.er.24h, 25 MG PO QHS, (Reported) Omeprazole (Omeprazole) 20 Mg Cap, 40 MG PO DAILY, (Reported) Rosuvastatin Calcium (Crestor) 20 Mg Tablet, 20 MG PO Q2D, (Reported) AT BEDTIME Sennosides/Docusate Sodium (Senna-S Tablet) 1 Each Tablet, 1 TAB PO QHS, (Reported) Sucralfate (Sucralfate) 1 Gm Tablet, 1 GM PO AC, (Reported) Tamsulosin HCl (Flomax) 0.4 Mg Capsule, 0.4 MG PO QHS, (Reported) [Arthro] , 1 TAB PO BID, (Reported) Scheduled PRN Sennosides/Docusate Sodium (Senna-S Tablet) 1 Each Tablet, 1 TAB PO DAILY PRN for CONSTIPATION, (Reported) Kiera Darby Jul 22, 2020 14:13 CAITLIN CAST MD Jul 22, 2020 18:58
[2020-07-22] MEDS: NS 1,000 ML IV SCH (16:08)
[2020-07-22] MEDS ORDERED: ISOVUE-370 76% 100ML VIAL As Ordered ONE (16:12)
--- NOTE | 2020-07-22 17:07 | REP ---
INDICATION: R/O THORACIC AND ABDOMINAL AORTIC DISSECTION. BACK PAIN COMPARISON: 11/15/2018 TECHNIQUE: Axial contrast enhanced images from the thoracic inlet to the upper abdomen using pulmonary embolus technique with multiplanar re-formations. 75 ml Isovue 370 intravenous contrast material administered without complication. This CT examination was performed using the following dose reduction techniques: Automated exposure control, adjustment of mA and/or kv according to the patient's size, and use of iterative reconstruction technique. FINDINGS: Patient is noted to be status post thoracic aortic intraluminal stent placement for aneurysm. There is significant mural thrombus of the excluded thoracic aortic lumen primarily extending from the mid arch through the descending thoracic aorta to the level of the aortic hiatus at the level of diaphragm. The distal portion of the descending thoracic aorta at the level of the hiatus measures 6.1 cm AP diameter which is increased from prior examination (measuring 5.5 cm diameter). There also appears to be some element of enhancement in the most distal portion of the excluded descending thoracic aorta suggesting element of leak (images [id number]). The bilateral lung zavala demonstrate chronic interstitial changes with bibasilar atelectasis (left greater than right). No effusion. No consolidation. Tracheobronchial tree is patent. Mediastinal lymph nodes are nonspecific in appearance. Musculoskeletal structures are intact. IMPRESSION: 1. Patient is noted to be status post thoracic aortic stenting for aneurysm. There appears to be increased dilatation to the non stented distal thoracic aorta at the level of the hiatus as compared to prior examination as well as a small amount of associated retrograde enhancement at the distal aspect of the stent into the surrounding non stented aortic lumen suggesting minimal leak. 2. Lung zavala demonstrate chronic interstitial changes and mild bibasilar atelectasis. <Electronically signed by Angel Salamanca > 07/22/20 [id number]
--- NOTE | 2020-07-22 17:16 | REP ---
INDICATION: R/O THORACIC AND ABDOMINAL AORTIC DISSECTION. BACK PAIN. COMPARISON: None TECHNIQUE: Axial contrast-enhanced images from the lung bases to the pubic symphysis using 75 cc Isovue 370 intravenous contrast material. Images obtained at maximal aortic enhancement using arterial angiographic technique. This CT examination was performed using the following dose reduction techniques: Automated exposure control, adjustment of mA and/or kv according to the patient's size, and the use of iterative reconstruction technique. FINDINGS: The distal descending/proximal abdominal aorta measures 6.4 cm maximal AP diameter and previously measured 5.1 cm maximal AP diameter at the same level. A 2nd partially thrombosed infrarenal abdominal aortic aneurysm is also increased and measures roughly 6.7 x 5.1 cm maximal AP and transverse diameter at the level of the pelvis previously measuring approximately 5.3 x 4.4 cm at the same level and tapers to the level of the bifurcations iliac arteries which appear relatively normal. Generalized extensive atherosclerotic changes noted throughout the aorta and branch vessels. There is no evidence for abdominal aortic dissection. Liver, spleen, pancreas, gallbladder, and bilateral adrenal glands are normal. The kidneys demonstrate bilateral atrophic changes likely secondary to chronic vascular compromise. Renal hypodensities are also identified similar to prior examination likely representing complex cysts. The enteric system is without obstruction or acute inflammatory process. Pelvis demonstrates stable moderate left anterior bladder diverticulum. Prostate gland is unremarkable. Fat containing right inguinal hernia noted. No ascites. No free air. No adenopathy. Musculoskeletal structures demonstrate degenerative changes without acute osseous abnormality. IMPRESSION: Increasing abdominal aortic aneurysms at the proximal aorta and infrarenal abdominal aorta with associated significant atherosclerotic disease. No dissection. <Electronically signed by Angel Salamanca > 07/22/20 [id number]
[2020-07-22] MEDS: METOPROLOL SUCC *XL* 25MG TAB (TopROL *XL*) PO SCH (20:57)
[2020-07-22] MEDS: TAMSULOSIN 0.4 MG CAP PO SCH (20:57)
[2020-07-22] MEDS: FINASTERIDE 5 MG TAB PO SCH (20:58)
[2020-07-22] MEDS: **NOTE PATIENT COMMENT** MISC XX SCH (20:59)
[2020-07-22 22:00] VITALS: BP 139/86
[2020-07-22 22:30] VITALS: BP 135/84
[2020-07-22] MEDS: cloNIDine 0.1 MG TAB PO PRN (22:50)
[2020-07-23] VITALS (16 sets, daily range): BP systolic 128–170; BP diastolic 76–98
[2020-07-23] MEDS: NITROGLYCERIN 2% OINT 1 GM *U/D* PKT TOP SCH ×6 (02:49→23:00)
[2020-07-23] MEDS: NS 1,000 ML IV SCH (05:03)
[2020-07-23 06:27] LABS: HEMATOCRIT 25.2 % (42.0-52.0); HEMOGLOBIN 7.9 g/dl (13.5-17.5); MEAN CORPUSCULAR HEMOGLOBIN 31.9 pg (27.0-33.0); MEAN CORPUSCULAR HGB CONC 31.3 g/dl (32.0-36.5); MEAN CORPUSCULAR VOLUME 101.6 fl (80.0-96.0); PLATELET COUNT, AUTOMATED 140 10^3/uL (150-450); RED BLOOD COUNT 2.48 10^6/uL (4.30-6.10); WHITE BLOOD COUNT 7.5 10^3/uL (4.0-10.0)
[2020-07-23 06:51] LABS: CALCIUM LEVEL 8.6 MG/DL (8.8-10.2); CREATININE FOR GFR 2.61 MG/DL (0.70-1.30); GLOMERULAR FILTRATION RATE 25.2 (>35); POTASSIUM SERUM 5.4 MEQ/L (3.5-5.1)
[2020-07-23] MEDS: SUCRALFATE 1 GM TAB PO SCH ×3 (07:42→17:47)
[2020-07-23] MEDS ORDERED: CALCIUM GLUCONATE 1,000 MG in D5W MINI-BAG PLUS 100 ML IV ONE (08:00)
[2020-07-23] MEDS ORDERED: SENOKOT S TAB PO ONE (08:15)
--- NOTE | 2020-07-23 08:27 | CR ---
DATE OF CONSULTATION: 07/22/2020 REQUESTING PHYSICIAN: Dr. Parker ATTENDING: Dr. Cooper CHIEF COMPLAINT: Bilateral leg weakness, right greater than the left. HISTORY OF PRESENT ILLNESS: This is an 79-year-old male patient who comes in for evaluation of his weakness in both lower extremities, right greater than the left. He was admitted through the hospitalist service for his symptoms. He continues to struggle with his symptoms. He has a significant surgical history of having a laminectomy done in 1985 at L4-5; that was secondary to a fall. Since then, he has noted progressively worsening weakness in the lower extremities that started initially somewhere around early spring when he started mowing the grass. He noticed he was unable to walk the full yard when he mowed the grass. This had progressed to difficulty with just ambulating around the house and over the last two or three weeks, he has had trouble with getting around the house to the point that his legs would give away and he would fall to the ground. Mainly his right leg and then his left leg. He does have a significant history of having a stroke that affects his right side as well. He denies any change in his bowel or bladder habits. He has had CTs and MRIs. The most MRI that was done was notable for a moderate stenosis at 2-3 and 3-4 and a nondynamic spondylolisthesis 3-4, postsurgical changes at 4-5 with moderate neural foraminal narrowing bilaterally at 4-5 and 5-1, but not any tight stenosis. I viewed that MRI. His findings are consistent with chronic spinal stenosis, but I do not see an acute fracture. He is working with physical therapy. He struggles with being able to complete his activities. He does live alone. He denies any particular injuries to his back other than 1985 when the original injury happened. No recent injuries. PAST MEDICAL HISTORY: 1. Chronic kidney disease stage III. 2. Elevated cholesterol. 3. Depression. 4. Anxiety. 5. Nocturia. 6. Memory deficit. 7. Thoracic aortic aneurysm. 8. Gastric reflux disease. 9. Abdominal aortic aneurysm. 10. Stroke. 11. Fasting glucoses elevated. PAST SURGICAL HISTORY: 1. Prior L4-5 discectomy in the . 2. Colonoscopy. 3. Shoulder scope on the left side. 4. Aortic aneurysm repair with grafting. SOCIAL HISTORY: He is retired. He denies alcohol use. He denies smoking. FAMILY HISTORY: Non-contributory. MEDICATIONS: See the admission note. ALLERGIES: PROCHLORPERAZINE. HOME MEDICATIONS: - aspirin 325 mg per day. - citalopram - iron 325 mg - finasteride - melatonin - Prilosec - Crestor - Senokot-S - Flomax - metoprolol REVIEW OF SYSTEMS: Denies any fever or chills. Denies chest pain, shortness of breath, or cough. Denies difficulty breathing. He has a prior history of a stroke. He does have some weakness and some residual from the stroke. We also discussed he does have some fatigue in his leg, question of it being neurogenic versus cardiac for claudication. He denies any current fevers or chills. He denies chest pain, shortness of breath, or cough. He denies difficulty breathing. He denies abdominal pain currently. Notes really no pain in his back just the weakness in his legs, right greater than left. PHYSICAL EXAMINATION: Today reveals a male patient that is working with physical therapy. He is able to walk with a walker. His gait is not wide-based today. Deep tendon reflexes are absent in the knees and absent at the ankles. Straight leg raise testing is negative. No irritability with hip range of motion on either side. There is significantly decreased internal and external rotation on the left side. Muscle strength seems grossly 5/5, equal and symmetrical in the major muscle groups. Well-perfuse lower extremities. There is no tenderness around the lumbar spine. The skin around the back is intact. No erythema, edema, or ecchymosis. No irritability with knee range of motion. The greater trochanters are nontender. Clonus is negative. The calves are soft and nontender to palpation. No tenderness around the cervical spine on exam. Good shoulder range of motion on exam today. Good knee range of motion. Good ankle range of motion. There is no significant pitting edema noted. IMPRESSION: Lumbar spinal stenosis with neurogenic versus cardiac claudication. PLAN: I talked to him about his symptoms. I would agree at this point that a trial of conservative management would be indicated with physical therapy for strengthening and gait training. He can be evaluated with the [facility] pain service for possible injections, because that would be a direction to go and I think that would be helpful. In terms of rehab, subacute versus acute rehab would be an option. There is no surgical indication for his ongoing symptoms. He is not clearly going to be a candidate probably for surgery and he is really not interested in any surgery at this point; so, conservative management and maximize that care. He might be a candidate to try gabapentin 100 mg titrated up to three times a day, but I will defer that to his primary team for their direction as it may interact with his other medications; so, that would be an option as well. He can follow-up in the orthopedic clinic in four to five weeks on an outpatient basis. If there are further indications, he can reconsult orthopedics; but at this point, a fairly detailed plan. All of his questions were answered. MADONNA
[2020-07-23] MEDS: SENOKOT S TAB PO SCH ×2 (08:45→20:10)
[2020-07-23] MEDS: FERROUS SULFATE 325MG TAB PO SCH (08:46)
[2020-07-23] MEDS: VITAMIN D 1,000 INTERNATIONAL UNITS TABLET PO SCH ×2 (08:46→20:11)
[2020-07-23] MEDS: OMEPRAZOLE 20 MG CAP PO SCH (08:46)
[2020-07-23] MEDS: CitaloPRAM (CeleXA) 20 MG TAB PO SCH (08:47)
[2020-07-23] MEDS: amLODIPine 5 MG TAB PO SCH ×2 (08:47→20:13)
[2020-07-23] MEDS: MIRALAX *UNIT DOSE* 17GM PACKET PO SCH ×3 (08:47→20:09)
[2020-07-23] MEDS: ACETAMINOPHEN 500 MG TAB PO SCH ×3 (08:47→20:08)
[2020-07-23] MEDS: LIDOCAINE 5% (LIDODERM) PATCH TD SCH (08:48)
[2020-07-23] MEDS ORDERED: SOD POLYSTYRENE SULFONATE SUSP 15 GM/60 ML UD PO ONE (09:00)
[2020-07-23] MEDS: POLYVINYL ALCOHOL OPHTH SOLN 15 ML(LIQUITEARS) OU PRN (09:07)
--- NOTE | 2020-07-23 09:19 | CR ---
NEPHROLOGY CONSULTATION DATE OF CONSULTATION: 07/22/2020 DICTATED FOR: Linda Parker M.D. REASON FOR CONSULTATION: Acute renal failure superimposed on chronic kidney disease and need for CT angiogram. HISTORY OF PRESENT ILLNESS: I was called this afternoon to see Mr. Diaz for acute kidney injury and possible contrast nephropathy risk as there was a strong suspicion for possible aortic dissection or leak around his aneurysm. The patient has multiple chronic medical problems including stage to stage 4 of chronic kidney disease, hypercholesterolemia, spinal stenosis, osteoarthritis, prior stroke, history of thoracic aortic aneurysm, status post endovascular repair, history of abdominal aortic aneurysm without rupture in the past and history of diet controlled diabetes. He has a history of laminectomy for a herniated nucleus pulposus at L-4 and L-5 level and multiple other surgical procedures in the past. He is followed by Vascular Surgery out of [place] at [facility] and was scheduled for a follow up in the near future. He fell at home suddenly as his knees gave out and he was brought to [facility]. He had complaint of back pain and a CT scan was done which did show aortic aneurysm. An ultrasound was done for further evaluation and the patient was seen by Vascular Surgery. The patient was also discussed with his primary vascular surgeon in [place] by Dr. Parker. In any event, I was asked today to see him as there was a consideration for IV contrast for a CT angiogram. I came to see him this evening and noted that the patient already had the CT angiogram done and now he is receiving IV fluids at 75 mL per hour. The patient reports improvement in the pain and denies any dyspnea or chest pain at the present. PAST MEDICAL HISTORY: The patient's past medical history is significant for: 1. History of generalized vascular disease. 2. Hypercholesterolemia. 3. Chronic kidney disease. 4. Depression and anxiety. 5. Osteoarthritis. 6. History of prior stroke. 7. History of thoracic aortic aneurysm. 8. History of abdominal aortic aneurysm. 9. History of spinal surgery for spinal stenosis. 10. History of thoracoabdominal aortic aneurysm with a graft and vascularly. SURGICAL HISTORY: The patient also has had multiple surgical procedures done in the past includin. Colonoscopy. 2. Left shoulder arthroscopy. 3. Spine surgery for spinal stenosis. 4. Thoracoabdominal aortic aneurysm repair. PERSONAL AND SOCIAL HISTORY: The patient lives with his at home. He denies any alcohol, drug or tobacco use. FAMILY HISTORY: The patient's family history is noncontributory at this age. MEDICATIONS: His home medications include: * Aspirin 325 mg daily. * Vitamin D 2,000 units daily. * Celexa 20 mg daily. * Ferrous Sulfate 325 mg three times a week. * Proscar 5 mg daily. * Melatonin 5 mg at bedtime. * Metoprolol 25 mg at bedtime. * Crestor 20 mg daily. * Senokot one tablet at bedtime. * Carafate one gram four times daily. * Flomax 0.4 mg at bedtime. ALLERGIES: He has allergy to Prochlorperazine. REVIEW OF SYSTEMS: The patient denies any headache at present. Ears, nose, and throat are unremarkable. Cardiovascular system is negative for dyspnea or chest pain. Respiratory system is negative for cough or hemoptysis. GI system is negative for vomiting or diarrhea. He denies any active bleeding or black colored stools. Genitourinary system is significant for difficulty voiding. He does have a history of benign prostatic enlargement. Musculoskeletal system is significant for weakness of lower extremities and back pain. He has history of spinal stenosis. Endocrine system is significant for diet controlled diabetes. He has hypercholesterolemia. Psychosocial system is significant for depression and anxiety. Neurological system is significant for prior stroke and generalized weakness, particularly in the lower extremities. Hematological system is negative for any terminal clerk anticoagulation. PHYSICAL EXAMINATION: GENERAL APPEARANCE: This is an elderly gentleman laying in the bed without any acute distress. VITAL SIGNS: Temperature 97.3 degrees Fahrenheit, heart rate 64 per minute, respiratory rate 18 per minute, blood pressure 140/90 mm of mercury and oxygen saturation is 97% on room air. HEENT: Head is atraumatic. Pupils equal and reactive to light and sclerae anicteric. Ears, nose and throat are unremarkable. NECK: Supple and JVD is minimal elevated above the sternal angle. HEART: Regular. LUNGS: Clear to auscultation. ABDOMEN: Soft and nontender and bowel sounds are normal. EXTREMITIES: Without any cyanosis or clubbing. NEUROLOGICALLY: He is awake and without any focal deficits. LABORATORY DATA: On the day of admission his BUN was 50 and creatinine 2.78. Today his BUN is 45 and creatinine 2.63. Sodium is 141 and potassium 4.0. CO2 is 25 and calcium 8.4. WBC count 8.1, hemoglobin 8.4 and hematocrit 25.9. Platelets 155. PROCEDURES: He already had a CT angiogram done which did show classic aortic stenting for aneurysm. It was noticed that there was some increased dilatation to the non stented distal thoracic aorta at the level of the hiatus and some associated retrograde enhancement suspecting minimal leak. PROBLEMS: Acute kidney injury superimposed on chronic kidney disease his true baseline kidney function just prior to this admission is not clear. His kidney function has slightly improved since admission. At present he is non oliguric and receiving IV fluids at 75 mL per hour. I was not aware that the patient already had CT angiogram at the time of the request of this consult. I did not have a chance to see him prior to the CT angiogram. Consult was called just about the same time when the patient already the CT angiogram done. In any event, he did receive minimum dose of intravenous dye and he is being hydrated with IV fluids. I will get a Ball catheter placed to insure close monitoring of his urine output. His kidney function will be checked again tomorrow morning. He does not have any evidence of metabolic acidosis or hyperkalemia at this point. The patient is currently not on any nephrotoxic medications and his volume status seems reasonable. Thank you for involving me in the care of Mr. Najera. I will follow him along with you. MADONNA
--- NOTE | 2020-07-23 11:52 | IPNPDOC ---
Date Seen The patient was seen on 07/23/20. Progress Note SUBJECTIVE: Back pain is currently a 3 out of 10 on a pain scale, not wanting any pain medications. He is currently on Percocet up to 3 times daily per pain management recommendations. Despite worsening anemia. Patient denies any bright red blood per rectum, melena, black tarry stools. No hematemesis. He also denies any hematuria, hemoptysis. Patient was started on IV fluids yesterday to prevent contrast of nephropathy in light of his chronic kidney disease stage IV and recent contrast study to further evaluate his thoracic and abdominal aortic aneurysm. Vascular surgery as [facility] recommended follow-up with the patient's personal vascular surgeon at [facility] in [place] due to the complexities of his abdominal aortic aneurysm which bounced from the thoracic area all the way down to the infrarenal area in the abdomen. Patient is currently undergoing stage surgeries, which is specialized and limited to only a few centers in the country. Dr. Cook was intricately involved in the decision- making process. The patient is aortic aneurysm yesterday. He was able to review the patient's ultrasound of the abdomen. CT abdomen and pelvis with IV contrast and was confident the patient does not have an aortic dissection should the situation change his vascular surgeon at [facility] in [place] will help facilitate transfer .at this time, he recommends conservative management with blood pressure control, evaluating for GI bleed if persistent anemia, and optimizing his strength in order to be discharged home with outpatient follow-up with Dr. cook as previously scheduled. PHYSICAL EXAMINATION: VITAL SIGNS: See below Generally patient is awake, alert, oriented 3, answering questions appropriately . HEENT: . No carotid bruit no JVD or thyromegaly.Moist mucous membranes Lungs: Diminished bilateral air entry is equal . Heart: S1, S2, sinus rhythm. Abdomen: Soft nontender distended positive bowel sounds 4 quadrants . Positive abdominal bruit . Extremity no cyanosis, clubbing or pitting edema . Skin no ecchymosis or hematomas noted. Bilateral lower extremities . Neuro patient has decreased sensation on the left lower extremity with some numbness. Motor function is 5 out of 54 extremities. Patient has negative straight-leg test bilaterally LABORATORY DATA: See below. IMAGING: See below MICROBIOLOGY: Please see below. ASSESSMENT: 79-year-old male with past medical history significant for chronic kidney disease stage III, hypercholesterolemia, depression with anxiety, osteoarthritis, nocturia, macrocytosis, memory deficit, thoracic aortic aneurysm without rupture. 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 His daughter was able to catch it before he hit his head and reach the floor. Patient has noticed increasing weakness of his knees since last spring. He is usually able to mow the lawn but has been unable to do this. Patient's balance has been worsened in the past 2-3 weeks and has had about 3 falls in the past 3 weeks despite using his walker at home. He denies any back pain or radiating pain from the back to the foot or behind the knee. He has not sought any help from his primary care physician regarding his chronic spinal stenosis. He denies having any steroid injections. Pain management referral or or either neurosurgical or orthopedic referral. He otherwise denied any palpitations, lightheadedness, dizziness, shortness of breath prior to the episode. He has been in his usual state of health and denied any fever, chills, headache, sore throat, tinnitus, vertigo, visual changes, diplopia, blurred vision, ear pain, neck pain, chest pain, pressure, tightness, near syncope, nausea, vomiting, diarrhea, abdominal pain, dysuria, urgency, frequency, flank pain, polyuria, polydipsia, weight gain, weight loss, changes in appetite, skin rash, abnormal nodules or joint pains. In the emergency room, a CT lumbar spine shows high-grade central spinal canal and lateral recess stenosis at L3-L4, L4-L5, mild to moderate central spinal canal stenosis lower thoracicoabdominal aneurysms as above. X-rays of bilateral knees have no fracture but with tricompartmental osteoarthritic changes. CT of the head is chronic, old infarcts with no intracranial hemorrhage. Patient was evaluated by physical therapy and recommended observation to improve patient's balance. hospitalist was called to admit. 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 PLAN: Per the patient's ask her surgeon, Dr. COOK at [facility] in [place], [place]. Patient does not require any acute intervention or transfer to higher level of care at this time. Dr. Alexandru Kearney asked his reviewed the patient's CT abdomen and pelvis and does not believe that the patient has an aortic dissection at this time. . He recommends outpatient follow-up as previously scheduled and good control of his blood pressure while inpatient. Due to contrast study in light of patient's chronic kidney disease stage IV. He has been started on intravenous fluids overnight and training program developer, has been consulted for help in management. Patient's pain is better controlled with Percocet 3 times a day as needed for pain. He is being evaluated by a RU for possible rehabilitation services.. Vascular surgeon, Dr. Garay has evaluated the patient yesterday and agrees with Dr. Cook that the patient's aortic aneurysm is quite complicated and ranges from the thoracic to the inf infrarenal area in the abdomen and requires staged surgeries, which has been planned for him as outpatient. Per [facility] vascular surgeon. The patient's case is too complicated to be dealt with at [facility] and should he decompensate. He will be best treated at a higher level of care at [facility]. Due to severe anemia. Patient has been given a bowel regimen to check for Hemoccult stool as well as 2 units of blood tr ansfusion to get his hemoglobin above 8. We are diligent with keeping his blood pressure stable at 120 to 130. Due to anemia, His aspirin has been held. Despite having a history of CVA. It may be resumed if Hemoccult stool is negative and no other signs of decrease in hemoglobin. VS, I&O, 24H, Fishbone Vital Signs/I&O Vital Signs Date Time Temp Pulse Resp B/P (MAP) Pulse Ox O2 Delivery O2 Flow Rate FiO2 07/23/20 11:00 127/79 07/23/20 08:47 62 07/23/20 06:00 97.0 18 96 Room Air I&O- Last 24 Hours up to 6 AM 07/23/20 06:00 Intake Total 1880 ml Output Total 1400 ml Balance 480 ml Laboratory Data 24H LABS Laboratory Tests 2 07/23/20 06:09: Nucleated Red Blood Cells % (auto) 0.0, Anion Gap 6L, Glomerular Filtration Rate 25.2L, Calcium Level 8.6L CBC/BMP Laboratory Tests 07/23/20 06:09 URBANO GARSIA MD Jul 23, 2020 11:52
[2020-07-23 16:20] LABS: CALCIUM LEVEL 8.4 MG/DL (8.8-10.2); CREATININE FOR GFR 2.49 MG/DL (0.70-1.30); GLOMERULAR FILTRATION RATE 26.6 (>35); POTASSIUM SERUM 4.3 MEQ/L (3.5-5.1)
[2020-07-23] MEDS: TAMSULOSIN 0.4 MG CAP PO SCH (20:08)
[2020-07-23] MEDS: ROSUVASTATIN 10 MG TAB (CRESTOR) PO SCH (20:09)
[2020-07-23] MEDS: FINASTERIDE 5 MG TAB PO SCH (20:10)
[2020-07-23] MEDS: METOPROLOL SUCC *XL* 25MG TAB (TopROL *XL*) PO SCH (20:12)
[2020-07-23] MEDS: **NOTE PATIENT COMMENT** MISC XX SCH ×3 (20:12→21:22)
[2020-07-24] MEDS: NITROGLYCERIN 2% OINT 1 GM *U/D* PKT TOP SCH (02:35)
[2020-07-24 06:00] VITALS: BP 151/82
[2020-07-24 06:32] LABS: HEMATOCRIT 34.9 % (42.0-52.0); MEAN CORPUSCULAR HEMOGLOBIN 32.1 pg (27.0-33.0); MEAN CORPUSCULAR HGB CONC 32.7 g/dl (32.0-36.5); MEAN CORPUSCULAR VOLUME 98.3 fl (80.0-96.0); PLATELET COUNT, AUTOMATED 151 10^3/uL (150-450); RED BLOOD COUNT 3.55 10^6/uL (4.30-6.10); WHITE BLOOD COUNT 12.7 10^3/uL (4.0-10.0)
[2020-07-24 06:54] LABS: CALCIUM LEVEL 9.1 MG/DL (8.8-10.2); CREATININE FOR GFR 2.51 MG/DL (0.70-1.30); GLOMERULAR FILTRATION RATE 26.4 (>35); POTASSIUM SERUM 4.2 MEQ/L (3.5-5.1)
[2020-07-24 07:06] LABS: HEMOGLOBIN 11.4 g/dl (13.5-17.5)
[2020-07-24] MEDS: SENOKOT S TAB PO SCH ×2 (08:20→20:44)
[2020-07-24] MEDS: LIDOCAINE 5% (LIDODERM) PATCH TD SCH (08:20)
[2020-07-24] MEDS: MIRALAX *UNIT DOSE* 17GM PACKET PO SCH ×2 (08:20→20:44)
--- NOTE | 2020-07-24 08:20 | IPN ---
DATE: 07/23/2020 SUBJECTIVE: The patient is seen this morning at his bedside. He is feeling about the same and denies any abdominal or back pain at present. He has no nausea or vomiting. He denies any dyspnea or chest pain. His Ball catheter is draining clear urine. He is also receiving IV fluids at 75 mL per hour. PHYSICAL EXAMINATION: VITAL SIGNS: Temperature 97 degrees Fahrenheit, heart rate 60 per minute, respiratory rate 16 per minute, blood pressure 139/85 mm of mercury and oxygen saturation is 95% on room air. HEENT: His head is atraumatic. NECK: Supple and JVD not abnormally elevated. HEART: Regular. LUNGS: Clear to auscultation. ABDOMEN: Soft and somewhat distended but nontender. Bowel sounds are present. EXTREMITIES: Without any cyanosis or clubbing. NEUROLOGICALLY: He is wake and at his baseline mentation without any focal deficits. Intake and out records show a positive fluid balance of 255 mL. Urine output was 1,175 mL in the last 24 hours. LABORATORY STUDIES: Todays labs showed a WBC count of 7.5, hemoglobin 7.9 and hematocrit 25.2. Sodium 141, potassium 5.4, CO2 26, BUN 43 and creatinine 2.61, calcium 8.6. PROBLEMS: 1. Acute kidney injury superimposed on chronic kidney disease no significant change in kidney function but at least his kidney function did not get worse following IV contrast. I think this is very encouraging and he has good urine output. 2. Hyperkalemia he has mild hyperkalemia which is unexpected. The patient has already received a dose of Kayexalate from Hospitalist this morning. We will wait for his repeat electrolytes. I would not give any further Kayexalate or diuretic at this point. 3. Anemia his anemia has worsened, probably related to some hemodilution and he is going to receive 2 units of packed RBCs. I will stop the IV fluids when he gets his blood transfusion. He seems very well hydrated and kidney function is stable at present, so I would not want to get him volume overloaded. 4. Hypertension - at present his blood pressure seems reasonably well controlled. 5. Abdominal aortic aneurysm - The patient seems to be asymptomatic at the present though CT scan and CT angiogram did show increase in the size of his aneurysm. Hospitalist has already discussed with his vascular surgery and I will defer any plans to the Hospitalist Service. MADONNA
[2020-07-24] MEDS: CitaloPRAM (CeleXA) 20 MG TAB PO SCH (08:21)
[2020-07-24] MEDS: ACETAMINOPHEN 500 MG TAB PO SCH ×3 (08:21→20:45)
[2020-07-24] MEDS: SUCRALFATE 1 GM TAB PO SCH ×3 (08:21→17:13)
[2020-07-24] MEDS: VITAMIN D 1,000 INTERNATIONAL UNITS TABLET PO SCH ×2 (08:21→20:43)
[2020-07-24] MEDS: PERCOCET 5MG/325MG TAB PO PRN (08:21)
[2020-07-24] MEDS: ISOSORBIDE DIN. (ISORDIL) 20 MG TAB PO SCH ×3 (08:22→20:45)
[2020-07-24] MEDS: OMEPRAZOLE 20 MG CAP PO SCH (08:22)
[2020-07-24] MEDS: **hydrALAZINE** 50 MG TAB PO SCH ×4 (08:23→23:30)
[2020-07-24 10:00] VITALS: BP_SYST 115; BP_SYST 137; BP_DIAS 70; BP_DIAS 75
--- NOTE | 2020-07-24 10:52 | IPNPDOC ---
Date Seen The patient was seen on 07/24/20. Progress Note SUBJECTIVE: Patient complains of "not feeling well today." With generalized pain. He denies any dysuria, urgency, frequency, fever, chills, flank pain overnight. He was found to have some hematuria with blood clots. Denies any shortness of breath, chest pain, palpitations, lightheadedness or dizziness this morning. UA is pending. PHYSICAL EXAMINATION: VITAL SIGNS: See below Generally patient is awake, alert, oriented 3, no respiratory distress . HEENT: Extraocular muscles intact. Neck is supple, full range of motion. No carotid bruit no JVD or thyromegaly.Moist mucous membranes Lungs: Diminished bilateral air entry is equal . Heart: S1, S2, sinus rhythm. Abdomen: Soft nontender distended positive bowel sounds 4 quadrants . Positive abdominal bruit . Extremity no cyanosis, clubbing or pitting edema . Skin no ecchymosis or hematomas noted. Bilateral lower extremities . Neuro patient has decreased sensation on the left lower extremity with some numbness. Motor function is 5 out of 54 extremities. Patient has negative straight-leg test bilaterally LABORATORY DATA: See below. IMAGING: See below MICROBIOLOGY: Please see below. ASSESSMENT: 79-year-old male with past medical history significant for chronic kidney disease stage III, hypercholesterolemia, depression with anxiety, osteoarthritis, nocturia, macrocytosis, memory deficit, thoracic aortic aneurysm without rupture. 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 His daughter was able to catch it before he hit his head and reach the floor. Patient has noticed increasing weakness of his knees since last spring. He is usually able to mow the lawn but has been unable to do this. Patient's balance has been worsened in the past 2-3 weeks and has had about 3 falls in the past 3 weeks despite using his walker at home. He denies any back pain or radiating pain from the back to the foot or behind the knee. He has not sought any help from his primary care physician regarding his chronic spinal stenosis. He denies having any steroid injections. Pain management referral or or either neurosurgical or orthopedic referral. He otherwise denied any palpitations, lightheadedness, dizziness, shortness of breath prior to the episode. He has been in his usual state of health and denied any fever, chills, headache, sore throat, tinnitus, vertigo, visual changes, diplopia, blurred vision, ear pain, neck pain, chest pain, pressure, tightness, near syncope, nausea, vomiting, diarrhea, abdominal pain, dysuria, urgency, frequency, flank pain, polyuria, polydipsia, weight gain, weight loss, changes in appetite, skin rash, abnormal nodules or joint pains. In the emergency room, a CT lumbar spine shows high- grade central spinal canal and lateral recess stenosis at L3-L4, L4-L5, mild to moderate central spinal canal stenosis lower thoracicoabdominal aneurysms as above. X-rays of bilateral knees have no fracture but with tricompartmental osteoarthritic changes. CT of the head is chronic, old infarcts with no intracranial hemorrhage. Patient was evaluated by physical therapy and recommended observation to improve patient's balance. hospitalist was called to admit. Recurrent falls Gait instability in the setting of multiple CVAs in the past Severe bilateral central canal spinal stenosis L3-L5 Hyperkalemia HTN urgency, resolved , Gross hematuria Abdominal aortic aneurysm measuring 5.3 cm and infrarenal area 6.6 cm descending thoracic upper abdominal aortic aneurysm chronic kidney disease stage III-IV, hypercholesterolemia, depression with anxiety, osteoarthritis, memory deficit, , Constipation . PLAN: Due to gross hematuria and recent anemia requiring 2 units RBC transfusion. Patient's aspirin has been held. We'll check UA, urine sent for C&S. In order to rule out hemorrhagic cystitis. Patient has slight increase in white count without any fevers. He did receive IV fluids, but denies any shortness of jaimee ath. We'll start an antibiotic. Patient's UA is positive for a urinary screen patient's nitroglycerin glycerin every 4 hourly will be discontinued and he'll be transitioned to oral antihypertensive medications with isosorbide and hydralazine. Norvasc has been discussed. Need to keep patient's blood pressure between 120-130 mmhg systolic in light of significant aortic aneurysm, thoracic or abdominal aorta. According to her vascular surgeon at [facility] patient patient should be transferred to [facility], should we suspect dissection. Nephrology has been consulted to manage prevention of contrast nephropathy in light of stage IV chronic kidney disease and recent contrast study. Patient's hyperkalemia has resolved with Kayexalate, calcium gluconate to stabilize her cardiac member yesterday. VS, I&O, 24H, Fishbone Vital Signs/I&O Vital Signs Date Time Temp Pulse Resp B/P (MAP) Pulse Ox O2 Delivery O2 Flow Rate FiO2 07/24/20 10:00 97.6 72 16 115/70 (85) 91 Room Air I&O- Last 24 Hours up to 6 AM 07/24/20 06:00 Intake Total 1805 ml Output Total 2200 ml Balance -395 ml Laboratory Data 24H LABS Laboratory Tests 2 07/23/20 15:44: Anion Gap 6L, Glomerular Filtration Rate 26.6L, Calcium Level 8.4L 07/24/20 06:03: Anion Gap 6L, Glomerular Filtration Rate 26.4L, Calcium Level 9.1, Nucleated Red Blood Cells % (auto) 0.0 CBC/BMP Laboratory Tests 07/23/20 15:44 07/24/20 06:03 Microbiology Microbiology 07/23/20 Stool Occult Blood (WARNER) - Final, Complete URBANO GARSIA MD Jul 24, 2020 10:52
[2020-07-24] MEDS ORDERED: NS 500 ML IV ONE (11:00)
[2020-07-24 12:07] LABS: GLUCOSE, URINE (UA) MANUAL NEGATIVE (NEGATIVE)
[2020-07-24 12:20] LABS: BILIRUBIN, URINE MANUAL NEGATIVE (NEGATIVE)
[2020-07-24 12:21] LABS: UROBILINOGEN, URINE MANUAL NORMAL (NORMAL)
[2020-07-24 12:22] LABS: KETONE, URINE MANUAL NEGATIVE (NEGATIVE)
[2020-07-24 12:28] LABS: RBC, URINE TNTC /hpf (0-3)
[2020-07-24 12:29] LABS: BACTERIA, URINE SMALL AMOUNT
[2020-07-24 12:31] LABS: RENAL EPITHELIAL CELLS, URINE SMALL AMOUNT /hpf; SQUAMOUS EPITHELIAL CELL URINE SMALL AMOUNT /hpf (SMALL AMT)
[2020-07-24 12:32] LABS: TRANSITIONAL EPI CELLS, URINE SMALL AMOUNT /hpf
[2020-07-24 12:33] LABS: HYALINE CAST, URINE 0-1 /lpf (0-1)
[2020-07-24 14:00] VITALS: BP 117/68
--- NOTE | 2020-07-24 14:39 | CR.PDOC ---
[facility] Pain Clinic Consultation General Date of Consultation: 07/22/20 Chief Complaint The patient is a 79-year-old male admitted with a reason for visit of Spinal Stenosis Of Lumbar Region. History of Present Illness 79 year old male admitted for back pain. Placed on tramadol which made patient sedated. Home Medications Scheduled Acetaminophen (Acetaminophen) 500 Mg Tablet, 1,000 MG PO TID Aspirin (Aspirin EC) 325 Mg Tablet.dr, 325 MG PO DAILY, (Reported) Cholecalciferol (Vitamin D3) (Vitamin D3) 1,000 Unit Tablet, 2,000 UNITS PO BID, (Reported) Citalopram Hydrobromide (Celexa) 20 Mg Tablet, 20 MG PO DAILY, (Reported) Ferrous Sulfate (Iron) 325 Mg Tablet, 65 MG PO 3XW, (Reported) TUES, THURS, SAT Finasteride (Finasteride) 5 Mg Tablet, 5 MG PO QHS, (Reported) Melatonin (Melatonin) 5 Mg Tablet, 5 MG PO QHS, (Reported) Metoprolol Succinate (Metoprolol Succinate) 25 Mg Tab.er.24h, 25 MG PO QHS, (Reported) Omeprazole (Omeprazole) 20 Mg Cap, 40 MG PO DAILY, (Reported) Rosuvastatin Calcium (Crestor) 20 Mg Tablet, 20 MG PO Q2D, (Reported) AT BEDTIME Sennosides/Docusate Sodium (Senna-S Tablet) 1 Each Tablet, 1 TAB PO QHS, (Repor artemio) Sucralfate (Sucralfate) 1 Gm Tablet, 1 GM PO AC, (Reported) Tamsulosin HCl (Flomax) 0.4 Mg Capsule, 0.4 MG PO QHS, (Reported) [Arthro] , 1 TAB PO BID, (Reported) Scheduled PRN Sennosides/Docusate Sodium (Senna-S Tablet) 1 Each Tablet, 1 TAB PO DAILY PRN for CONSTIPATION, (Reported) Allergies Coded Allergies: prochlorperazine (Verified Allergy, Severe, TONGUE SWELLING, 07/19/20) Social History Social History Denies tobacco, alcohol, or illicit substance abuse. Physical Examination Physical Examination Vital Signs/I&O Vital Signs Date Time Temp Pulse Resp B/P (MAP) Pulse Ox O2 Delivery O2 Flow Rate FiO2 07/24/20 14:00 97.1 74 17 117/68 (84) 96 Room Air I&O- Last 24 Hours up to 6 AM 07/24/20 06:00 Intake Total 1805 ml Output Total 2200 ml Balance -395 ml Laboratory Data Labs 24H Laboratory Tests 2 07/23/20 15:44: Anion Gap 6L, Glomerular Filtration Rate 26.6L, Calcium Level 8.4L 07/24/20 06:03: Anion Gap 6L, Glomerular Filtration Rate 26.4L, Calcium Level 9.1, Nucleated Red Blood Cells % (auto) 0.0 07/24/20 11:32: Urine Color (MARY ANN) REDH, Urine Appearance (MARY ANN) TURBIDH, Urine pH (MARY ANN) 5.0, Urine Specific [place] (MARY ANN) 1.015, Urine Protein 3+H, Bedside Urine Glucose (UA) NEGATIVE, Bedside Urine Ketones (LAB) NEGATIVE, Bedside Urine Blood POSITIV EH, Bedside Urine Nitrite (LAB) POSITIVEH, Bedside Urine Bilirubin (LAB) NEGATIVE, Bedside Urine Urobilinogen (LAB) NORMAL, Bedside Urine Leukocyte Esterase (L POSITIVEH, Urine Sediment Examination PERFORMED, Urine RBC TNTCH, Urine WBC TNTCH, Urine Squamous Epithelial Cells SMALL AMOUNT, Urine Trans itional Epithelial Cells SMALL AMOUNTH, Urine Renal Epithelial Cells SMALL AMOUNTH, Urine Bacteria SMALL AMOUNTH, Urine Hyaline Casts 0-1 CBC/BMP Laboratory Tests 07/23/20 15:44 07/24/20 06:03 Microbiology Microbiology 07/24/20 Urine Culture, Received Pending 07/23/20 Stool Occult Blood (WARNER) - Final, Complete Assessment Discussed case with Dr. Quiles and given patient's reduction in pain with use of the Percocet recommend Percocet 5/325mg three times daily PRN pain. Recommendation and Plan Thank you , for allowing us to participate in the care of your patient. Should you have any questions we will be glad to discuss this with you at any time please contact us here at the pain center at [phone]. JOVAN CONTI Jul 24, 2020 14:39
[2020-07-24] MEDS: TAMSULOSIN 0.4 MG CAP PO SCH (20:44)
[2020-07-24] MEDS: FINASTERIDE 5 MG TAB PO SCH (20:45)
[2020-07-24] MEDS: **NOTE PATIENT COMMENT** MISC XX SCH (20:46)
[2020-07-24 22:00] VITALS: BP 141/90
[2020-07-25 02:00] VITALS: BP 122/70
[2020-07-25] MEDS: **hydrALAZINE** 50 MG TAB PO SCH ×3 (05:23→21:19)
[2020-07-25] MEDS: PERCOCET 5MG/325MG TAB PO PRN (05:26)
[2020-07-25 06:00] VITALS: BP 129/80
[2020-07-25 06:25] LABS: CALCIUM LEVEL 8.5 MG/DL (8.8-10.2); CREATININE FOR GFR 2.81 MG/DL (0.70-1.30); GLOMERULAR FILTRATION RATE 23.2 (>35); POTASSIUM SERUM 3.9 MEQ/L (3.5-5.1)
[2020-07-25 06:26] LABS: HEMATOCRIT 29.3 % (42.0-52.0); HEMOGLOBIN 9.8 g/dl (13.5-17.5); MEAN CORPUSCULAR HEMOGLOBIN 33.2 pg (27.0-33.0); MEAN CORPUSCULAR HGB CONC 33.4 g/dl (32.0-36.5); MEAN CORPUSCULAR VOLUME 99.3 fl (80.0-96.0); PLATELET COUNT, AUTOMATED 131 10^3/uL (150-450); RED BLOOD COUNT 2.95 10^6/uL (4.30-6.10); WHITE BLOOD COUNT 11.1 10^3/uL (4.0-10.0)
[2020-07-25] MEDS ORDERED: NS 1,000 ML IV SCH (08:00)
[2020-07-25] MEDS: MIRALAX *UNIT DOSE* 17GM PACKET PO SCH ×2 (09:00→21:00)
[2020-07-25] MEDS: LIDOCAINE 5% (LIDODERM) PATCH TD SCH (09:00)
[2020-07-25] MEDS: OMEPRAZOLE 20 MG CAP PO SCH (09:40)
[2020-07-25] MEDS: SUCRALFATE 1 GM TAB PO SCH ×3 (09:40→17:10)
[2020-07-25] MEDS: SENOKOT S TAB PO SCH ×2 (09:40→21:15)
[2020-07-25] MEDS: VITAMIN D 1,000 INTERNATIONAL UNITS TABLET PO SCH ×2 (09:41→21:17)
[2020-07-25] MEDS: ACETAMINOPHEN 500 MG TAB PO SCH ×3 (09:41→21:15)
[2020-07-25] MEDS: CitaloPRAM (CeleXA) 20 MG TAB PO SCH (09:41)
[2020-07-25] MEDS: FERROUS SULFATE 325MG TAB PO SCH (09:41)
[2020-07-25] MEDS: ISOSORBIDE DIN. (ISORDIL) 20 MG TAB PO SCH ×2 (09:41→21:18)
[2020-07-25 10:00] VITALS: BP 130/80
[2020-07-25] MEDS: POLYVINYL ALCOHOL OPHTH SOLN 15 ML(LIQUITEARS) OU PRN (10:24)
--- NOTE | 2020-07-25 13:14 | IPNPDOC ---
Date Seen The patient was seen on 07/25/20. Progress Note SUBJECTIVE: did not feel well yesterday, with generalized malaise, hematuria with clots. ua sent, but culture not back yet. slight leukocytosis. started on bacid and ceftriaxone. increased creatinine despite ivfluids s/p contrast. no c/o sob, cp, cough, fever. no c/o back pain, but c/o b/l leg discomfort w ambulation radiating to feet. no falls during this admission PHYSICAL EXAMINATION: VITAL SIGNS: See below Generally sitting on side of bed eating breakfast. no respiratory distress . HEENT: Extraocular muscles intact. Neck is supple, full range of motion. No carotid bruit no JVD or thyromegaly.Moist mucous membranes Lungs: Diminished bilateral air entry is equal . Heart: S1, S2, sinus rhythm. Abdomen: Soft nontender distended positive bowel sounds 4 quadrants . Positive abdominal bruit . Extremity no cyanosis, clubbing or pitting edema . Skin no ecchymosis or hematomas noted. Bilateral lower extremities . Neuro patient has decreased sensation on the left lower extremity with some numbness. Motor function is 5 out of 54 extremities. Patient has negative straight-leg test bilaterally LABORATORY DATA: See below. IMAGING: See below MICROBIOLOGY: Please see below. ASSESSMENT: 79-year-old male with past medical history significant for chronic kidney disease stage III, hypercholesterolemia, depression with anxiety, osteoarthritis, nocturia, macrocytosis, memory deficit, thoracic aortic aneurysm without rupture. 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 His daughter was able to catch it before he hit his head and reach the floor. Patient has noticed increasing weakness of his knees since last spring. He is usually able to mow the lawn but has been unable to do this. Patient's balance has been worsened in the past 2-3 weeks and has had about 3 falls in the past 3 weeks despite using his walker at home. He denies any back pain or radiating pain from the back to the foot or behind the knee. He has not sought any help from his primary care physician regarding his chronic spinal stenosis. He denies having any steroid injections. Pain management referral or or either neurosurgical or orthopedic referral. He otherwise denied any palpitations, lightheadedness, dizziness, shortness of breath prior to the episode. He has been in his usual state of health and denied any fever, chills, headache, sore throat, tinnitus, vertigo, visual changes, diplopia, blurred vision, ear pain, neck pain, chest pain, pressure, tightness, near syncope, nausea, vomiting, diarrhea, abdominal pain, dysuria, urgency, frequency, flank pain, polyuria, polydipsia, weight gain, weight loss, changes in appetite, skin rash, abnormal nodules or joint pains. In the emergency room, a CT lumbar spine shows high- grade central spinal canal and lateral recess stenosis at L3-L4, L4-L5, mild to moderate central spinal canal stenosis lower thoracicoabdominal aneurysms as above. X-rays of bilateral knees have no fracture but with tricompartmental osteoarthritic changes. CT of the head is chronic, old infarcts with no intracranial hemorrhage. Patient was evaluated by physical therapy and petey mmended observation to improve patient's balance. hospitalist was called to admit. Recurrent falls Gait instability in the setting of multiple CVAs in the past Severe bilateral central canal spinal stenosis L3-L5 Hyperkalemia,resolved HTN urgency, resolved , Gross hematuria,resolved UTI contrast induced acute on ckd stage 4 nephropathy Abdominal aortic aneurysm measuring 5.3 cm and infrarenal area 6.6 cm descending thoracic upper abdominal aortic aneurysm hypercholesterolemia, depression with anxiety, osteoarthritis, memory deficit, , Constipation . PLAN: bp being maintained between 120-130mmHg systolic due to multiple thoracic and abd aortic aneurysm. no dissection on ct , but developed contrast nephropathy with worsening gfr, now on ivfluids. due to gross hematuria w possible hemorrhagic cystitis, asa held and pt started on iv ceftriaxone until urine cx finalized. on tid percocet for spinal stenosis,a nd cooperative w pt/ot. awaiting insurance approval for aru. per vascular surgeon in [place], pt to be dc home and fu w him for repeat aaa repair. bp meds titrated to make it simpler to take. nitro paste d/eleni yesterday on isosorbide and hydralazine changing from tid to bid dosing. RN aware to call md if sbp>140. s/p 2urbc transfusion and off antiplatelet. VS, I&O, 24H, Fishbone Vital Signs/I&O Vital Signs Date Time Temp Pulse Resp B/P (MAP) Pulse Ox O2 Delivery O2 Flow Rate FiO2 07/25/20 10:00 97.8 67 17 130/80 (97) 93 Room Air I&O- Last 24 Hours up to 6 AM 07/25/20 06:00 Intake Total 900 ml Output Total 975 ml Balance -75 ml Laboratory Data 24H LABS Laboratory Tests 2 07/25/20 05:44: Nucleated Red Blood Cells % (auto) 0.0, Anion Gap 6L, Glomerular Filtration Rate 23.2L, Calcium Level 8.5L CBC/BMP Laboratory Tests 07/25/20 05:44 Microbiology Microbiology 07/24/20 Urine Culture, Received Pending 07/23/20 Stool Occult Blood (WARNER) - Final, Complete URBANO GARSIA MD Jul 25, 2020 13:14
[2020-07-25 14:00] VITALS: BP 131/82
[2020-07-25] MEDS ORDERED: cefTRIAXone SOD 1 GM in D5W MINI-BAG PLUS 50 ML IV SCH (14:00)
[2020-07-25] MEDS: LACTOBACILLUS ACIDOPHILUS CAP (BACID) PO SCH (17:10)
[2020-07-25 18:00] VITALS: BP 134/84
[2020-07-25] MEDS: **NOTE PATIENT COMMENT** MISC XX SCH (21:00)
[2020-07-25] MEDS: FINASTERIDE 5 MG TAB PO SCH (21:15)
[2020-07-25] MEDS: ROSUVASTATIN 10 MG TAB (CRESTOR) PO SCH (21:17)
[2020-07-25] MEDS: TAMSULOSIN 0.4 MG CAP PO SCH (21:17)
[2020-07-25 22:40] VITALS: BP 130/72
[2020-07-26] VITALS (9 sets, daily range): BP systolic 128–180; BP diastolic 69–100
[2020-07-26] MEDS: PERCOCET 5MG/325MG TAB PO PRN (01:07)
[2020-07-26] MEDS: **hydrALAZINE** 50 MG TAB PO SCH ×3 (05:18→22:00)
[2020-07-26 06:38] LABS: HEMATOCRIT 29.6 % (42.0-52.0); HEMOGLOBIN 9.4 g/dl (13.5-17.5); MEAN CORPUSCULAR HEMOGLOBIN 31.9 pg (27.0-33.0); MEAN CORPUSCULAR HGB CONC 31.8 g/dl (32.0-36.5); MEAN CORPUSCULAR VOLUME 100.3 fl (80.0-96.0); PLATELET COUNT, AUTOMATED 131 10^3/uL (150-450); RED BLOOD COUNT 2.95 10^6/uL (4.30-6.10); WHITE BLOOD COUNT 9.8 10^3/uL (4.0-10.0)
[2020-07-26] MEDS: cloNIDine 0.1 MG TAB PO PRN ×2 (06:54→18:21)
[2020-07-26 07:00] LABS: CALCIUM LEVEL 8.3 MG/DL (8.8-10.2); CREATININE FOR GFR 2.62 MG/DL (0.70-1.30); GLOMERULAR FILTRATION RATE 25.1 (>35)
[2020-07-26] MEDS ORDERED: ISOSORBIDE DIN. (ISORDIL) 20 MG TAB PO ONE (08:00)
[2020-07-26] MEDS: SENOKOT S TAB PO SCH ×2 (08:10→20:50)
[2020-07-26] MEDS: CitaloPRAM (CeleXA) 20 MG TAB PO SCH (08:10)
[2020-07-26] MEDS: VITAMIN D 1,000 INTERNATIONAL UNITS TABLET PO SCH ×2 (08:10→20:51)
[2020-07-26] MEDS: LACTOBACILLUS ACIDOPHILUS CAP (BACID) PO SCH ×2 (08:10→18:07)
[2020-07-26] MEDS: SUCRALFATE 1 GM TAB PO SCH ×3 (08:10→18:07)
[2020-07-26] MEDS: ACETAMINOPHEN 500 MG TAB PO SCH ×3 (08:11→20:51)
[2020-07-26] MEDS: MIRALAX *UNIT DOSE* 17GM PACKET PO SCH ×2 (08:12→20:51)
[2020-07-26] MEDS: OMEPRAZOLE 20 MG CAP PO SCH (08:12)
[2020-07-26] MEDS: LIDOCAINE 5% (LIDODERM) PATCH TD SCH ×2 (08:12→08:14)
[2020-07-26] MEDS ORDERED: **hydrALAZINE** 50 MG TAB PO ONE (08:15)
[2020-07-26] MEDS ORDERED: cloNIDine 0.1 MG TAB PO ONE (09:30)
--- NOTE | 2020-07-26 11:53 | IPN ---
PROGRESS NOTE DATE: 07/26/2020 SUBJECTIVE: Mr. Diaz is seen this morning at his bedside. He is feeling about the same and denies any new complaints. He still has a Ball catheter, which is draining clear urine today. His IV fluid has been stopped. The patient denies any dyspnea, chest pain, nausea or vomiting. OBJECTIVE: VITAL SIGNS: Temperature 98.6 degrees Fahrenheit, heart rate is 80 per minute, and respiratory rate 20 per minute. Blood pressure 138/70 mmHg and oxygen saturation 94% on room air. HEAD: Atraumatic. NECK: Supple and without JVD or thyroid enlargement. HEART: Sounds are regular. LUNGS: Clear to auscultation. ABDOMEN: Soft and nontender. Bowel sounds are normal. EXTREMITIES: Without any cyanosis or clubbing. NEUROLOGIC: He is awake, alert, and oriented x3. LABORATORY DATA: Today's labs show WBC count 9.8, hemoglobin 9.4, hematocrit 29.6, platelets 131,000. Sodium 140, potassium 4.0, CO2 of 25, BUN 43, and creatinine 2.62, glucose 97, and calcium 8.3. PROBLEMS: 1. Acute kidney injury superimposed on chronic kidney disease. The patient had a slight bump in his creatinine yesterday, which has improved today, and kidney function is back to where it had been a few days ago. There was no significant change either way. He is off intravenous (IV) fluid and has been off diuretics. At present, he still has a Ball catheter which I think can be removed now. 2. Anemia. His anemia is stable since transfusion and no urgent intervention is needed now. 3. Congestive heart failure. Volume status seems to be reasonably well compensated and he has been off diuretics. At present, we will continue to monitor closely. 4. Hypertension. Blood pressure is well-controlled on current antihypertensives. We should avoid angiotensin-converting enzyme (NOHEMY) inhibitor or angiotensin receptor blockers. 5. Abdominal aortic aneurysm. The patient remains asymptomatic and I will defer to hospitalist service for a plan for follow-up with his vascular surgery.
--- NOTE | 2020-07-26 11:56 | IPNPDOC ---
Date Seen The patient was seen on 07/26/20. Progress Note SUBJECTIVE: Patient was found to have blood pressure 180/100 this morning, but denies any chest pain, pressure, tightness, or changes in vision. He did have a headache last night but improved today without any intervention. Denies any bright red blood per rectum, melena, black tarry stools or gross hematuria. No shortness of breath. No cough or fever PHYSICAL EXAMINATION: VITAL SIGNS: See below Generally sitting on side of bed, just finished breakfast. no respiratory distress, speaks in full sentences . HEENT: Extraocular muscles intact. Neck is supple, full range of motion. No carotid bruit no JVD or thyromegaly.Moist mucous membranes Lungs: Diminished bilateral air entry is equal . Heart: S1, S2, sinus rhythm. Abdomen: Soft nontender distended positive bowel sounds 4 quadrants . Positive abdominal bruit . Extremity no cyanosis, clubbing or pitting edema . Skin no ecchymosis or hematomas noted. Bilateral lower extremities . Neuro patient has decreased sensation on the left lower extremity with some numbness. Motor function is 5 out of 54 extremities. Patient has negative straight-leg test bilaterally LABORATORY DATA: See below. IMAGING: See below MICROBIOLOGY: Please see below. ASSESSMENT: 79-year-old male with past medical history significant for chronic kidney disease stage III, hypercholesterolemia, depression with anxiety, osteoarthritis, nocturia, macrocytosis, memory deficit, thoracic aortic aneurysm without rupture. 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 His daughter was able to catch it before he hit his head and reach the floor. Patient has noticed increasing weakness of his knees since last spring. He is usually able to mow the lawn but has been unable to do this. Patient's balance has been worsened in the past 2-3 weeks and has had about 3 falls in the past 3 weeks despite using his walker at home. He denies any back pain or radiating pain from the back to the foot or behind the knee. He has not sought any help from his primary care physician regarding his chronic spinal stenosis. He denies having any steroid injections. Pain management referral or or either neurosurgical or orthopedic referral. He otherwise denied any palpitations, lightheadedness, dizziness, shortness of breath prior to the episode. He has been in his usual state of health and denied any fever, chills, headache, sore throat, tinnitus, vertigo, visual changes, diplopia, blurred vision, ear pain, neck pain, chest pain, pressure, tightness, near syncope, nausea, vomiting, diarrhea, abdominal pain, dysuria, urgency, frequency, flank pain, polyuria, polydipsia, weight gain, weight loss, changes in appetite, skin rash, abnormal nodules or joint pains. In the emergency room, a CT lumbar spine shows high- grade central spinal canal and lateral recess stenosis at L3-L4, L4-L5, mild to moderate central spinal canal stenosis lower thoracicoabdominal aneurysms as above. X-rays of bilateral knees have no fracture but with tricompartmental osteoarthritic changes. CT of the head is chronic, old infarcts with no intracranial hemorrhage. Patient was evaluated by physical therapy and recommended observation to improve patient's balance. hospitalist was called to admit. Recurrent falls Gait instability in the setting of multiple CVAs in the past Severe bilateral central canal spinal stenosis L3-L5 Hyperkalemia,resolved HTN urgency , Gross hematuria,resolved UTI with Escherichia coli contrast induced acute on ckd stage 4 nephropathy back to baseline stage IV renal failure Abdominal aortic aneurysm measuring 5.3 cm and infrarenal area 6.6 cm descending thoracic upper abdominal aortic aneurysm hypercholesterolemia, depression with anxiety, osteoarthritis, memory deficit, Constipation, resolved PLAN: Patient was given IV ceftriaxone for UTI. Urine culture: Escherichia coli sensitive to amoxicillin. Patient was started on Augmentin and ceftriaxone has been discontinued. Patient is continued on hydralazine and isosorbide for hypertensive urgency, currently uncontrolled. Doses were given early this morning and 1 dose of clonidine. Goal blood pressure is to be 120-1 30 mmHg at all times, RN has been made aware forearm, M.D., to be informed of any blood pressure greater than 130 mmHg because of patient's history of thoracic and abdominal aortic aneurysm and risk of dissection. Patient is still physically debilitated and has not cleared physical therapy to be discharged home. His vascular surgeon in [place] spotting on repeat surgery at some point once he is medically and physically stable. Nephrology has been consulted to assist in management and patient's contrast nephropathy, but creatinine remains a staged for renal failure. VS, I&O, 24H, Fishbone Vital Signs/I&O Vital Signs Date Time Temp Pulse Resp B/P (MAP) Pulse Ox O2 Delivery O2 Flow Rate FiO2 07/26/20 10:00 98.6 20 20 138/69 (92) 94 07/26/20 06:00 Room Air I&O- Last 24 Hours up to 6 AM 07/26/20 06:00 Intake Total 1730 ml Output Total 2550 ml Balance -820 ml Laboratory Data 24H LABS Laboratory Tests 2 07/26/20 06:12: Nucleated Red Blood Cells % (auto) 0.0, Anion Gap 7L, Glomerular Filtration Rate 25.1L, Calcium Level 8.3L CBC/BMP Laboratory Tests 07/26/20 06:12 Microbiology Microbiology 07/24/20 Urine Culture - Final, Complete Escherichia Coli 07/23/20 Stool Occult Blood (AWRNER) - Final, Complete URBANO GARSIA MD Jul 26, 2020 11:56
--- NOTE | 2020-07-26 12:25 | IPN ---
NEPHROLOGY PROGRESS NOTE DATE: 07/25/2020 SUBJECTIVE: Mr. Najera is seen this morning on his bedside. He is lying in his bed comfortably without any acute distress. Gross hematuria in his Ball catheter has improved. Patient denies any abdominal pain, nausea or vomiting. He has no dyspnea or chest pain. PHYSICAL EXAMINATION: Temperature 97.8 degrees Fahrenheit, heart rate 68 per minute and respiratory rate 17 per minute. Blood pressure 130/80 mmHg and oxygen saturation 93% on room air. Head: Atraumatic. Neck: Supple and without JVD or thyroid enlargement. Heart: Sounds are regular. Lungs: Clear to auscultation. Abdomen: Protuberant, soft and nontender and bowel sounds are present. Extremities: Without any cyanosis or clubbing. Ball catheter is draining cloudy urine, but no blood. Neurologically: He is awake, alert and at his baseline mentation. LABORATORY DATA: Today's labs show WBC count 11.1, hemoglobin 9.8, hematocrit 29.3, platelets 131. Sodium 139, potassium 3.9, CO2 25, BUN 44, creatinine 2.81, glucose 117 and calcium 8.5. PROBLEMS/PLAN: 1. Acute kidney injury superimposed on chronic kidney disease: Patient has a slight bump in his serum creatinine. He did receive I.V. contrast 3 days ago. He has good urine output and kidney function is likely to return back to baseline. At present he is receiving I.V. fluid at 75 mL per hour which is appropriate. 2. Gross hematuria: Yesterday he had gross hematuria most likely due to catheter related trauma which has now improved. I would recommend to remove his catheter as soon as possible. 3. Anemia: Patient has severe anemia and required 2 units of packed RBCs. His anemia is slightly worse today probably related to some blood loss yesterday. No urgent need for a transfusion at present. 4. Abdominal aortic aneurysm: Patient has a large abdominal aortic aneurysm in addition to his thoracic aneurysm which has been repaired with endovascular graft. At present patient remains asymptomatic and I feel that he can follow up with his primary vascular surgeon.
[2020-07-26] MEDS: AUGMENTIN 500 MG TAB PO SCH ×2 (13:52→20:50)
[2020-07-26] MEDS ORDERED: **hydrALAZINE** 50 MG TAB PO SCH (16:00)
[2020-07-26] MEDS: TAMSULOSIN 0.4 MG CAP PO SCH (20:51)
[2020-07-26] MEDS: FINASTERIDE 5 MG TAB PO SCH (20:51)
[2020-07-26] MEDS: ISOSORBIDE DIN. (ISORDIL) 20 MG TAB PO SCH (20:52)
[2020-07-26] MEDS: **NOTE PATIENT COMMENT** MISC XX SCH (20:59)
[2020-07-26] MEDS: POLYVINYL ALCOHOL OPHTH SOLN 15 ML(LIQUITEARS) OU PRN (22:23)
[2020-07-27] VITALS (7 sets, daily range): BP systolic 130–156; BP diastolic 78–89
[2020-07-27] MEDS: cloNIDine 0.1 MG TAB PO PRN ×3 (02:27→23:12)
[2020-07-27 06:32] LABS: HEMATOCRIT 28.8 % (42.0-52.0); HEMOGLOBIN 9.5 g/dl (13.5-17.5); MEAN CORPUSCULAR HEMOGLOBIN 32.6 pg (27.0-33.0); PLATELET COUNT, AUTOMATED 134 10^3/uL (150-450); RED BLOOD COUNT 2.91 10^6/uL (4.30-6.10); WHITE BLOOD COUNT 8.6 10^3/uL (4.0-10.0)
[2020-07-27] MEDS: **hydrALAZINE** 50 MG TAB PO SCH ×3 (06:33→21:36)
[2020-07-27 06:54] LABS: CALCIUM LEVEL 8.2 MG/DL (8.8-10.2); CREATININE FOR GFR 2.34 MG/DL (0.70-1.30); GLOMERULAR FILTRATION RATE 28.6 (>35); POTASSIUM SERUM 4.1 MEQ/L (3.5-5.1)
[2020-07-27] MEDS: AUGMENTIN 500 MG TAB PO SCH ×2 (08:20→21:33)
[2020-07-27] MEDS: OMEPRAZOLE 20 MG CAP PO SCH (08:20)
[2020-07-27] MEDS: SENOKOT S TAB PO SCH ×2 (08:21→21:33)
[2020-07-27] MEDS: LACTOBACILLUS ACIDOPHILUS CAP (BACID) PO SCH ×2 (08:21→16:55)
[2020-07-27] MEDS: ISOSORBIDE DIN. (ISORDIL) 20 MG TAB PO SCH ×2 (08:22→21:33)
[2020-07-27] MEDS: FERROUS SULFATE 325MG TAB PO SCH (08:22)
[2020-07-27] MEDS: LIDOCAINE 5% (LIDODERM) PATCH TD SCH (08:22)
[2020-07-27] MEDS: CitaloPRAM (CeleXA) 20 MG TAB PO SCH (08:22)
[2020-07-27] MEDS: ACETAMINOPHEN 500 MG TAB PO SCH ×3 (08:22→21:32)
[2020-07-27] MEDS: MIRALAX *UNIT DOSE* 17GM PACKET PO SCH ×2 (08:22→21:33)
[2020-07-27] MEDS: VITAMIN D 1,000 INTERNATIONAL UNITS TABLET PO SCH ×2 (08:22→21:33)
[2020-07-27] MEDS: SUCRALFATE 1 GM TAB PO SCH ×3 (08:22→16:55)
--- NOTE | 2020-07-27 09:56 | IPNPDOC ---
Date Seen The patient was seen on 07/27/20. Progress Note SUBJECTIVE: c.o 6-7/10 pain in back going to b/l legs /feet despite scheduled percocet w sbp increasing to 150mmhg. no c/o h/a, cp, sob. PHYSICAL EXAMINATION: VITAL SIGNS: See below Generally eating his breakfast sitting ont eh side of the bed. no distress. . HEENT: face symmetric no jvd Moist mucous membranes Lungs: Diminished bilateral air entry is equal . Heart: S1, S2, sinus rhythm. Abdomen: Soft nontender distended positive bowel sounds 4 quadrants . Positive abdominal bruit . Extremity no cyanosis, clubbing or pitting edema . Skin no ecchymosis or hematomas noted. Bilateral lower extremities . Neuro patient has decreased sensation on the left lower extremity with some numbness. Motor function is 5 out of 54 extremities. Patient has negative straight-leg test bilaterally LABORATORY DATA: See below. IMAGING: See below MICROBIOLOGY: Please see below. ASSESSMENT: 79-year-old male with past medical history significant for chronic kidney disease stage III, hypercholesterolemia, depression with anxiety, osteoarthritis, nocturia, macrocytosis, memory deficit, thoracic aortic aneurysm without rupture. 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 His daughter was able to catch it before he hit his head and reach the floor. Patient has noticed increasing weakness of his knees since last spring. He is usually able to mow the lawn but has been unable to do this. Patient's balance has been worsened in the past 2-3 weeks and has had about 3 falls in the past 3 weeks despite using his walker at home. He denies any back pain or radiating pain from the back to the foot or behind the knee. He has not sought any help from his primary care physician regarding his chronic spinal stenosis. He denies having any steroid injections. Pain management referral or or either neurosurgical or orthopedic referral. He otherwise denied any palpitations, lightheadedness, dizziness, shortness of breath prior to the episode. He has been in his usual state of health and denied any fever, chills, headache, sore throat, tinnitus, vertigo, visual changes, diplopia, blurred vision, ear pain, neck pain, chest pain, pressure, tightness, near syncope, nausea, vomiting, diarrhea, abdominal pain, dysuria, urgency, frequency, flank pain, polyuria, polydipsia, weight gain, weight loss, changes in appetite, skin rash, abnormal nodules or joint pains. In the emergency room, a CT lumbar spine shows high- grade central spinal canal and lateral recess stenosis at L3-L4, L4-L5, mild to moderate central spinal canal stenosis lower thoracicoabdominal aneurysms as above. X-rays of bilateral knees have no fracture but with tricompartmental osteoarthritic changes. CT of the head is chronic, old infarcts with no intracranial hemorrhage. Patient was evaluated by physical therapy and recommended observation to improve patient's balance. hospitalist was called to admit. Recurrent falls Gait instability in the setting of multiple CVAs in the past Severe bilateral central canal spinal stenosis L3-L5 Hyperkalemia,resolved HTN, uncontrolled , Gross hematuria,resolved UTI with Escherichia coli contrast induced acute on ckd stage 4 nephropathy back to baseline stage IV renal failure Abdominal aortic aneurysm measuring 5.3 cm and infrarenal area 6.6 cm descending thoracic upper abdominal aortic aneurysm hypercholesterolemia, depression with anxiety, osteoarthritis, memory deficit, Constipation, resolved PLAN: on augmentin for uti. extra percocet due to worsening pain. awaiting aru acceptance. clonidine for sbp>130 PRN . continue w hydralazine and isosorbide. appreciate nephrology assistance in mgt of contrast nephropathy, at baseline stage 4 ckd. pt/Ot VS, I&O, 24H, Fishbone Vital Signs/I&O Vital Signs Date Time Temp Pulse Resp B/P (MAP) Pulse Ox O2 Delivery O2 Flow Rate FiO2 07/27/20 08:22 150/95 07/27/20 06:35 68 Room Air 07/27/20 06:00 98.1 17 96 I&O- Last 24 Hours up to 6 AM 07/27/20 06:00 Intake Total 2000 ml Output Total 2525 ml Balance -525 ml Laboratory Data 24H LABS Laboratory Tests 2 07/27/20 05:48: Nucleated Red Blood Cells % (auto) 0.0, Anion Gap 6L, Glomerular Filtration Rate 28.6L, Calcium Level 8.2L CBC/BMP Laboratory Tests 07/27/20 05:48 Microbiology Microbiology 07/24/20 Urine Culture - Final, Complete Escherichia Coli 07/23/20 Stool Occult Blood (WARNER) - Final, Complete URBANO GARSIA MD Jul 27, 2020 09:56
[2020-07-27] MEDS ORDERED: cloNIDine 0.1 MG TAB PO ONE (10:00)
[2020-07-27] MEDS ORDERED: PERCOCET 5MG/325MG TAB PO ONE (10:00)
[2020-07-27] MEDS: **NOTE PATIENT COMMENT** MISC XX SCH (21:00)
[2020-07-27] MEDS: ROSUVASTATIN 10 MG TAB (CRESTOR) PO SCH (21:32)
[2020-07-27] MEDS: FINASTERIDE 5 MG TAB PO SCH (21:33)
[2020-07-27] MEDS: TAMSULOSIN 0.4 MG CAP PO SCH (21:33)
[2020-07-27] MEDS: POLYVINYL ALCOHOL OPHTH SOLN 15 ML(LIQUITEARS) OU PRN (21:34)
[2020-07-28] VITALS (10 sets, daily range): BP systolic 111–160; BP diastolic 67–95
[2020-07-28] MEDS: **hydrALAZINE** 50 MG TAB PO SCH ×3 (05:46→21:30)
[2020-07-28 06:27] LABS: HEMATOCRIT 31.5 % (42.0-52.0); HEMOGLOBIN 10.1 g/dl (13.5-17.5); MEAN CORPUSCULAR HEMOGLOBIN 31.9 pg (27.0-33.0); MEAN CORPUSCULAR HGB CONC 32.1 g/dl (32.0-36.5); MEAN CORPUSCULAR VOLUME 99.4 fl (80.0-96.0); PLATELET COUNT, AUTOMATED 155 10^3/uL (150-450); RED BLOOD COUNT 3.17 10^6/uL (4.30-6.10); WHITE BLOOD COUNT 8.1 10^3/uL (4.0-10.0)
[2020-07-28 06:55] LABS: CALCIUM LEVEL 8.8 MG/DL (8.8-10.2); CREATININE FOR GFR 2.42 MG/DL (0.70-1.30); GLOMERULAR FILTRATION RATE 27.5 (>35); POTASSIUM SERUM 4.1 MEQ/L (3.5-5.1)
[2020-07-28] MEDS: cloNIDine 0.1 MG TAB PO PRN ×2 (06:57→22:34)
[2020-07-28] MEDS: SUCRALFATE 1 GM TAB PO SCH ×3 (08:19→17:34)
[2020-07-28] MEDS: SENOKOT S TAB PO SCH ×2 (08:19→20:32)
[2020-07-28] MEDS: ACETAMINOPHEN 500 MG TAB PO SCH (08:19)
[2020-07-28] MEDS: CitaloPRAM (CeleXA) 20 MG TAB PO SCH (08:19)
[2020-07-28] MEDS: AUGMENTIN 500 MG TAB PO SCH ×2 (08:19→20:32)
[2020-07-28] MEDS: VITAMIN D 1,000 INTERNATIONAL UNITS TABLET PO SCH ×2 (08:19→20:33)
[2020-07-28] MEDS: OMEPRAZOLE 20 MG CAP PO SCH (08:20)
[2020-07-28] MEDS: ISOSORBIDE DIN. (ISORDIL) 20 MG TAB PO SCH ×2 (08:20→16:33)
[2020-07-28] MEDS: LIDOCAINE 5% (LIDODERM) PATCH TD SCH (08:20)
[2020-07-28] MEDS: LACTOBACILLUS ACIDOPHILUS CAP (BACID) PO SCH ×2 (08:20→17:34)
[2020-07-28] MEDS: MIRALAX *UNIT DOSE* 17GM PACKET PO SCH ×2 (09:00→20:33)
[2020-07-28] MEDS ORDERED: cloNIDine 0.1 MG TAB PO ONE (12:15)
[2020-07-28] MEDS ORDERED: ISOSORBIDE DIN. (ISORDIL) 20 MG TAB PO ONE (12:15)
--- NOTE | 2020-07-28 12:25 | IPNPDOC ---
Date Seen The patient was seen on 07/28/20. Progress Note SUBJECTIVE: c/o back pain, but wanted to wait for meds to work. had breakfast. denies sob, n/v. still not cleared by physical therapy. despite [id number], denies changes in vision, h/a/cp or back pain. PHYSICAL EXAMINATION: VITAL SIGNS: See below Generally laying flat on the bed no distress. . HEENT: face symmetric no jvd Moist mucous membranes Lungs: Diminished bilateral air entry is equal . Heart: S1, S2, sinus rhythm. Abdomen: Soft nontender distended positive bowel sounds 4 quadrants . Positive abdominal bruit . Extremity no cyanosis, clubbing or pitting edema . Skin no ecchymosis or hematomas noted. Bilateral lower extremities . Neuro patient has decreased sensation on the left lower extremity with some numbness. Motor function is 5 out of 54 extremities. Patient has negative straight-leg test bilaterally LABORATORY DATA: See below. IMAGING: See below MICROBIOLOGY: Please see below. ASSESSMENT: 79-year-old male with past medical history significant for chronic kidney disease stage III, hypercholesterolemia, depression with anxiety, osteoarthritis, nocturia, macrocytosis, memory deficit, thoracic aortic aneurysm without rupture. Reflux disease, abdominal aortic aneurysm without rupture and elevated fasting glucose laminectomy for herniated nucleus pulposus at L4-L5 inguinal hernia, colonoscopy, left shoulder arthroscopy, colonoscopy stent placement in the aorta thoracicoabdominal aortic aneurysm repair with graft thoracic endovascular aortic repair with [employer] stroke at [facility] was in his usual state of health until today when his knees gave out while he was getting ready to go to physical therapy in his living room and fell to his knees. His daughter was able to catch it before he hit his head and reach the floor. Patient has noticed increasing weakness of his knees since last spring. He is usually able to mow the lawn but has been unable to do this. Patient's balance has been worsened in the past 2-3 weeks and has had about 3 falls in the past 3 weeks despite using his walker at home. He denies any back pain or radiating pain from the back to the foot or behind the knee. He has not sought any help from his primary care physician regarding his chronic spinal stenosis. He denies having any steroid injections. Pain management referral or or either neurosurgical or orthopedic referral. He otherwise denied any palpitations, li ghtheadedness, dizziness, shortness of breath prior to the episode. He has been in his usual state of health and denied any fever, chills, headache, sore throat, tinnitus, vertigo, visual changes, diplopia, blurred vision, ear pain, neck pain, chest pain, pressure, tightness, near syncope, nausea, vomiting, diarrhea, abdominal pain, dysuria, urgency, frequency, flank pain, polyuria, polydipsia, weight gain, weight loss, changes in appetite, skin rash, abnormal nodules or joint pains. In the emergency room, a CT lumbar spine shows high- grade central spinal canal and lateral recess stenosis at L3-L4, L4-L5, mild to moderate central spinal canal stenosis lower thoracicoabdominal aneurysms as ab ove. X-rays of bilateral knees have no fracture but with tricompartmental osteoarthritic changes. CT of the head is chronic, old infarcts with no intracranial hemorrhage. Patient was evaluated by physical therapy and recommended observation to improve patient's balance. hospitalist was called to admit. Recurrent falls Gait instability in the setting of multiple CVAs in the past Severe bilateral central canal spinal stenosis L3-L5 Hyperkalemia,resolved HTN, uncontrolled , Gross hematuria,resolved UTI with Escherichia coli contrast induced acute on ckd stage 4 nephropathy back to baseline stage IV renal failure Abdominal aortic aneurysm measuring 5.3 cm and infrarenal area 6.6 cm descending thoracic upper abdominal aortic aneurysm hypercholesterolemia, depression with anxiety, osteoarthritis, memory deficit, Constipation, resolved PLAN: increased isosorbide to q8hrs with holding parameters for sbp<120. change vitals to q4hrs while sbp uncontrolled. if 24hrs of [id number], can change back to soc vitals. perocet tid. dc prn pain meds. bowel regimen. unable to dc since not cleared by physical therapy. nephrology consulted for fluid mgt. pt has 2+edema but no sob. still at stage 4 ckd. avoid nephrotoxins and renally dose meds. VS, I&O, 24H, Fishbone Vital Signs/I&O Vital Signs Date Time Temp Pulse Resp B/P (MAP) Pulse Ox O2 Delivery O2 Flow Rate FiO2 07/28/20 08:23 143/95 (111) 07/28/20 06:55 64 24 Room Air 07/28/20 06:02 95 07/28/20 06:00 98.4 I&O- Last 24 Hours up to 6 AM 07/28/20 06:00 Intake Total 1940 ml Output Total 2125 ml Balance -185 ml Laboratory Data 24H LABS Laboratory Tests 2 07/28/20 06:03: Nucleated Red Blood Cells % (auto) 0.0, Anion Gap 7L, Glomerular Filtration Rate 27.5L, Calcium Level 8.8 CBC/BMP Laboratory Tests 07/28/20 06:03 Microbiology Microbiology 07/24/20 Urine Culture - Final, Complete Escherichia Coli 07/23/20 Stool Occult Blood (WARNER) - Final, Complete URBANO GARSIA MD Jul 28, 2020 10:16
[2020-07-28] MEDS ORDERED: FUROSEMIDE 20MG/2ML VIAL (J1940) IV ONE (13:15)
[2020-07-28] MEDS: PERCOCET 5MG/325MG TAB PO SCH ×2 (15:50→20:33)
--- NOTE | 2020-07-28 19:30 | IPN ---
NEPHROLOGY PROGRESS NOTE DATE: 07/28/2020 02:15:00 pm SUBJECTIVE: The patient was seen and examined at the bedside today morning. He is afebrile, hemodynamically stable. His renal function is stable. Creatinine is at 2.4. He reports mild edema of the lower extremities. Otherwise he denies any active complaints. OBJECTIVE: VITAL SIGNS: Temperature is 97.9 degrees Fahrenheit, blood pressure 113/71, pulse is 73, respiratory rate of 19, saturating 93% on room air. Intake and output Urine output recorded as 2.7 liters yesterday, 1,150 mL so far today in the morning. Weight on the bed scale is not available. PHYSICAL EXAMINATION: GENERAL APPEARANCE: The patient is awake, alert, oriented x3, sitting up on the sofa, in no apparent distress. HEAD AND NECK: Extraocular muscles intact. Pupils are equally round and reactive to light. Mucous membranes are moist. Neck is supple. There is no significant jugular venous distention. CARDIOVASCULAR: S1, S2, regular rate. EXTREMITIES: 2+ edema of the right lower extremity and 1+ edema of the left lower extremity. . RESPIRATORY: Chest is clear to auscultation bilaterally. Bilaterally currently no rales or rhonchi. ABDOMEN: Soft, positive bowel sounds, nontender, no organomegaly. MUSCULOSKELETAL: No clubbing, no cyanosis. Pulses are 2+. BODY MAKE UP ARTIST: No focal deficits. Power is 5/5 in bilateral upper extremities. LAB REVIEW: CBC showed a WBC of 8.1, hemoglobin 10.1, platelets of 155. BMP showed sodium 138, potassium 4.1, chloride 105, bicarbonate 26, BUN 30, creatinine is 2.4. CURRENT INPATIENT MEDICATIONS: The patient's medications were all reviewed by myself. There is no significant change in the medications today as compared with yesterday except that his Isosorbide Dinitrate has been changed to 40 mg q. 8 hourly and I have given him a dose of Lasix 20 mg IV times one dose. ASSESSMENT AND PLAN: 1. Acute kidney injury superimposed on chronic kidney disease the patient's renal function is stable. Creatinine has been 2.4 today. Electrolytes are within the acceptable range. 2. E-coli urinary tract infection - The patient is on oral Augmentin. That should cover the E-coli infection. 3. Lower extremity edema - The patient was given a dose of IV Lasix today. 4. Hypertension with hypertensive heart disease - The patient's blood pressures are well optimized with the current antihypertensive regimen. Isosorbide was already increased today morning.
[2020-07-28] MEDS: **NOTE PATIENT COMMENT** MISC XX SCH (20:12)
[2020-07-28] MEDS: FINASTERIDE 5 MG TAB PO SCH (20:33)
[2020-07-28] MEDS: TAMSULOSIN 0.4 MG CAP PO SCH (20:33)
[2020-07-29] MEDS: ISOSORBIDE DIN. (ISORDIL) 20 MG TAB PO SCH ×4 (00:43→21:01)
[2020-07-29 02:00] VITALS: BP 115/76
[2020-07-29] MEDS: **hydrALAZINE** 50 MG TAB PO SCH (05:26)
[2020-07-29 06:00] VITALS: BP 135/89
[2020-07-29 06:16] LABS: HEMATOCRIT 29.1 % (42.0-52.0); HEMOGLOBIN 9.5 g/dl (13.5-17.5); MEAN CORPUSCULAR HEMOGLOBIN 31.9 pg (27.0-33.0); MEAN CORPUSCULAR HGB CONC 32.6 g/dl (32.0-36.5); MEAN CORPUSCULAR VOLUME 97.7 fl (80.0-96.0); PLATELET COUNT, AUTOMATED 156 10^3/uL (150-450); RED BLOOD COUNT 2.98 10^6/uL (4.30-6.10); WHITE BLOOD COUNT 8.4 10^3/uL (4.0-10.0)
[2020-07-29 06:43] LABS: CALCIUM LEVEL 8.6 MG/DL (8.8-10.2); CREATININE FOR GFR 2.32 MG/DL (0.70-1.30); GLOMERULAR FILTRATION RATE 28.9 (>35); POTASSIUM SERUM 3.8 MEQ/L (3.5-5.1)
--- NOTE | 2020-07-29 07:31 | IPNPDOC ---
Text Note Date of Service The patient was seen on 07/29/20. NOTE SUBJECTIVE: Yesterday, patient's blood pressure medication regimen was increased to Isordil 40 mg every 8 hours and hydralazine 50 mg every 8 hours. Overnight blood pressure has remained stable systolic between 115 and 135. Patient reports his condition remained stable. Denies any chest pain, difficulty breathing. He continues to be somewhat weak when standing. PHYSICAL EXAMINATION: VITAL SIGNS: See below Gen.: Patient was interacting examined in his hospital room. Patient was found to be resting comfortably in bed in no acute distress. Patient appears of stated age. He is able answer questions regarding his medical history appropriately. HEENT: Normocephalic, atraumatic, EOMI, membranes are moist, no appreciable JVD. CVS: Regular rate and rhythm with a normal S1 and S2, no appreciable murmur Respiratory: Clear to auscultation bilaterally without rales or rhonchi. Abdomen: Soft, nontender, nondistended without appreciable organomegaly Extremities: Trace lower extremity edema, right greater than left, improved from prior examination. No appreciable clubbing or cyanosis. Peripheral pulses are 2+ in the radial and posterior tibial arteries bilaterally Neuro: Numbness on patient's left lower extremity persists, strength is 5 out of 5. alert and oriented 3 LABORATORY DATA: See below. IMAGING: Lumbar spine CT (07/19/20): High-grade central spinal canal and lateral recess stenosis at L3-L4. Mild to moderate central spinal canal stenosis L4-L5. Lower thoracic and abdominal aortic aneurysms. Knee x-ray (07/19/20): Degenerative changes, right greater than left. Lateral views are suboptimal due to overpenetration and evaluation of the bilateral patella and prepatellar soft tissues are incomplete. Head CT 07/19/20): No intracranial hemorrhage seen. Extremity arterial study (07/22/20): Atheromatous changes with no significant areas of stenosis or occlusion. Single focal area of stenosis involving the right common femoral artery/profundus. Lumbar spine MRI (07/21/20): There are atherosclerotic changes of the abdominal aorta and aneurysmal dilation of the infrarenal abdominal aorta measuring as large as 5.5 cm. This is not fully characterized on this exam. This was reported on patient's recent lumbar spine CT scan. Advanced multilevel degenerative changes causing variable degrees of spinal canal and neural foraminal narrowing as described. Spinal canal stenosis is most severe at L3-L4. The urinary bladder is moderately distended Aortic ultrasound (07/22/20): Fusiform dilation of both proximal and distal abdominal aorta. Maximal diameter of the AP dimension approximately 5.3 cm and distally 5.1 cm. The diameter proximally has mildly increased since the prior ultrasound on 06/12/19. There also appears to be increased mural thrombus anteriorly both proximally and distally raising suspicion of dissection with thrombus of the false lumen. Recommend CT with IV contrast of the thoracic and abdominal aorta to rule out dissection and rupture. CT Angio Abd/Pel (07/22/20): Increasing abdominal aortic aneurysms of the proximal aorta and infrarenal abdominal aorta with associated significant atherosclerotic disease. No dissection. CT Angio Chest (07/22/20): Patient is known to be status post thoracic aortic stenting for aneurysm. There appears to be increased dilation of the non-stented distal thoracic aorta at the level of the hiatus as compared to the prior examination as well as a small amount associated retrograde enhancement of the distal aspect of the stent into the surrounding nonsensitive aortic lumen suggesting minimal leak. Lung zavala don't show chronic interstitial changes and mild bibasilar atelectasis. MICROBIOLOGY: Urine culture (07/24/20): Escherichia coli ASSESSMENT: 79-year-old male with past medical history significant for chronic kidney disease stage III, hypercholesterolemia, depression with anxiety, osteoarthritis, nocturia, macrocytosis, memory deficit, thoracic aortic aneurysm without rupture. Reflux disease, abdominal aortic aneurysm without rupture and e levated fasting glucose laminectomy for herniated nucleus pulposus at L4-L5 inguinal hernia, colonoscopy, left shoulder arthroscopy, colonoscopy stent placement in the aorta thoracicoabdominal aortic aneurysm repair with graft thoracic endovascular aortic repair with [employer]ER[employer] stroke at [facility] was in his usual state of health until 07/19/20 when his knees gave out while he was getting ready to go to physical therapy in his living room and fell to his knees. His daughter was able to catch it before he hit his head and reach the floor. Patient has noticed increasing weakness of his knees since last spring. He is usually able to mow the lawn but has been unable to do this secondary to weakness. Patient's balance has been worsened in the last 2-3 weeks prior to admission. He reported that he had fallen approximately 3 times in that time despite the assistance of a walker. Patient does carry a history of chronic spinal stenosis. He denies ever having any steroid injections. He has never been seen by pain management, orthopedics or neurosurgery. Patient was admitted to the hospital and received extensive imaging given his history of aortic aneurysms and spinal stenosis. Pain management, orthopedics and vascular surgery were consulted and have weighed in as below. During his hospitalization, patient was found to have hypertensive urgency which was extremely concerning in regards to his aneurysms. His medication regimen was optimized, putting adequate control with Q8Hr dosing of hydralazine and isosorbide. Unfortunately, patient also suffered a contrast-induced nephropathy which worsened his already baseline CKD III. Nephrology was consulted and following the patient. His renal function has returned to baseline following appropriate hydration. He has been working diligently with PT/OT. Plan for discharge on 07/30/22 [facility]. PLAN: #Spinal Stenosis, severe, bilateral L3-L5 -Pain consultation on 07/22/20, recommend Percocet 5/325mg TID -Reports adequate control -Persisting B/L #Aortic abdominal aneurysm, 5.3 x 5.5, infrarenal -Status post TAA stenting with Dr. Cook in [place]. -Follow-up appointment on 08/28/20. Consider possible intervention for AAA. -Case was discussed with Dr. Cook who did not see reason for acute intervention or transfer to higher level of care. -Vascular consult on 07/22/20, No further immediate vascular intervention. -Importance of maintaining SBP 120-130 #UTI -Improving frequency -Positive nitrates and LE on 07/24. Escherichia coli by culture -Currently on day #3 of Augmentin 500 twice a day #Hypertensive Heart Disease -Important to maintain SBP between 120-130 given TAA/AAA -Increased Isosorbide, Hydrazine to Q8H dosing yesterday. -BP has been better controlled. #Gait instability, recurrent falls -multifactorial with history of CVA, spinal stenosis -PT/OT for strengthening and gait training -Rehab following D/C #SARAH, CKD IV -SARAH 2/2 to contrast induced nephropathy earlier in hospitalization -Kidney function returned to baseline. Creatinine of 2.32 -Nephrology following #HLD -Continue home Rosuvastatin #Depression/Anxiety -Continue on home Celexa #Osteoarthritis -PRN Tylenol and Percocet #BPH -Continue home Finasteride DISPO: D/C to [facility] tomorrow, 07/30/20. VS,[place], I+O VS, [place], I+O Laboratory Tests 07/29/20 05:52 Vital Signs Date Time Temp Pulse Resp B/P (MAP) Pulse Ox O2 Delivery O2 Flow Rate FiO2 07/29/20 06:00 97.9 78 18 135/89 (104) 93 07/28/20 14:00 Room Air I&O- Last 24 Hours up to 6 AM 07/29/20 06:00 Intake Total 2010 ml Output Total 1825 ml Balance 185 ml GME ATTESTATION GME ATTESTATION My faculty preceptor for this patient encounter was physically present during the encounter and was fully available. All aspects of the patient interview, exa mination, medical decision making process, and medical care plan development were reviewed and approved by the faculty preceptor. The faculty preceptor is aware and concurs with the plan as stated in the body of this note and will attest to such by his/her cosignature. DICK VAZQUEZ DO Jul 29, 2020 07:31
[2020-07-29] MEDS: MIRALAX *UNIT DOSE* 17GM PACKET PO SCH ×2 (08:49→20:56)
[2020-07-29] MEDS: OMEPRAZOLE 20 MG CAP PO SCH (08:50)
[2020-07-29] MEDS: LACTOBACILLUS ACIDOPHILUS CAP (BACID) PO SCH ×2 (08:50→17:10)
[2020-07-29] MEDS: AUGMENTIN 500 MG TAB PO SCH ×2 (08:50→20:55)
[2020-07-29] MEDS: CitaloPRAM (CeleXA) 20 MG TAB PO SCH (08:51)
[2020-07-29] MEDS: SENOKOT S TAB PO SCH ×2 (08:51→20:55)
[2020-07-29] MEDS: SUCRALFATE 1 GM TAB PO SCH ×3 (08:51→17:10)
[2020-07-29] MEDS: LIDOCAINE 5% (LIDODERM) PATCH TD SCH (08:51)
[2020-07-29] MEDS: VITAMIN D 1,000 INTERNATIONAL UNITS TABLET PO SCH ×2 (08:52→20:55)
[2020-07-29] MEDS: PERCOCET 5MG/325MG TAB PO SCH ×3 (08:54→20:56)
[2020-07-29 10:00] VITALS: BP 129/87
[2020-07-29] MEDS ORDERED: TORSEMIDE 20 MG TAB PO ONE (11:30)
[2020-07-29 13:00] LABS: FOLATE 20.1 NG/ML (>5.4)
[2020-07-29 13:46] VITALS: BP 149/93
[2020-07-29] MEDS: **hydrALAZINE HCL** 25 MG TAB PO SCH ×2 (14:18→21:00)
[2020-07-29 17:40] VITALS: BP 149/95
[2020-07-29 19:01] LABS: HEMATOCRIT 31.9 % (42.0-52.0); HEMOGLOBIN 10.4 g/dl (13.5-17.5); MEAN CORPUSCULAR HEMOGLOBIN 32.3 pg (27.0-33.0); MEAN CORPUSCULAR HGB CONC 32.6 g/dl (32.0-36.5); MEAN CORPUSCULAR VOLUME 99.1 fl (80.0-96.0); PLATELET COUNT, AUTOMATED 171 10^3/uL (150-450); RED BLOOD COUNT 3.22 10^6/uL (4.30-6.10); WHITE BLOOD COUNT 11.1 10^3/uL (4.0-10.0)
[2020-07-29] MEDS: **NOTE PATIENT COMMENT** MISC XX SCH (20:34)
[2020-07-29] MEDS: TAMSULOSIN 0.4 MG CAP PO SCH (20:55)
[2020-07-29] MEDS: FINASTERIDE 5 MG TAB PO SCH (20:55)
[2020-07-29] MEDS: ROSUVASTATIN 10 MG TAB (CRESTOR) PO SCH (20:56)
[2020-07-29] MEDS: POLYVINYL ALCOHOL OPHTH SOLN 15 ML(LIQUITEARS) OU PRN (21:00)
[2020-07-29 22:00] VITALS: BP 154/90
[2020-07-29] MEDS: cloNIDine 0.1 MG TAB PO PRN (22:30)
[2020-07-30] VITALS (32 sets, daily range): BP systolic 100–156; BP diastolic 66–101
[2020-07-30] MEDS: ISOSORBIDE DIN. (ISORDIL) 20 MG TAB PO SCH (05:50)
[2020-07-30] MEDS: **hydrALAZINE HCL** 25 MG TAB PO SCH (05:50)
[2020-07-30] MEDS ORDERED: ONDANSETRON 4 MG ORAL DISINTEGRATING TAB SL PRN (06:15)
[2020-07-30 06:29] LABS: HEMATOCRIT 29.5 % (42.0-52.0); HEMOGLOBIN 9.8 g/dl (13.5-17.5); MEAN CORPUSCULAR HEMOGLOBIN 32.2 pg (27.0-33.0); MEAN CORPUSCULAR HGB CONC 33.2 g/dl (32.0-36.5); PLATELET COUNT, AUTOMATED 168 10^3/uL (150-450); RED BLOOD COUNT 3.04 10^6/uL (4.30-6.10); WHITE BLOOD COUNT 11.4 10^3/uL (4.0-10.0)
[2020-07-30] MEDS: PERCOCET 5MG/325MG TAB PO SCH ×2 (06:44→09:00)
[2020-07-30 06:55] LABS: CALCIUM LEVEL 8.8 MG/DL (8.8-10.2); CREATININE FOR GFR 2.54 MG/DL (0.70-1.30); POTASSIUM SERUM 3.8 MEQ/L (3.5-5.1)
[2020-07-30] MEDS ORDERED: MORPHINE 2 MG/ML 1ML VIAL (J2270) IV PRN (07:00)
[2020-07-30 07:02] LABS: CK-MB VALUE MASS 1.6 NG/ML (<3.6); CPK CREATINE PHOSPHOKINASE 102 U/L (39-308); MB/CK RELATIVE INDEX 1.57 (< OR =4); TROPONIN I < 0.02 NG/ML (< 0.10)
[2020-07-30] MEDS: SUCRALFATE 1 GM TAB PO SCH (07:30)
--- NOTE | 2020-07-30 07:42 | ECGEPIP ---
[facility] Test Date: 2020-07-30 Pat Name: CHERYL BERMAN Department: Room: [place] [address] Gender: Male Mon[employer] Carver: : [id number] Requested By: SHIRA PIKE Order Number: [id number] Reading MD: Kinza Trujillo Measurements Intervals [place] Rate: 102 P: 11 TX: 159 QRS: -20 QRSD: 105 T: 9 QT: 371 QTc: 483 Interpretive Statements SINUS TACHYCARDIA MINIMAL ST DEPRESSION NEW ABNORMAL RHYTHM ECG POSSIBLE OLD IWMI// NEW QTC PROLONG //RATE FASTER C/W 07/19/20 Electronically Signed on 07-30-2020 7:42:36 EST by Kinza Trujillo
[2020-07-30] MEDS: LACTOBACILLUS ACIDOPHILUS CAP (BACID) PO SCH (08:00)
--- NOTE | 2020-07-30 08:14 | IPNPDOC ---
Text Note Date of Service The patient was seen on 07/30/20. NOTE SUBJECTIVE: At 0600 the morning of 07/30/20 patient was given his scheduled PO BP medications. Approximately 5 minutes later, patient began wrenching, complaining of abdominal pain with radiation to his back. He reported this pain as different than his usual back pain 2/2 to spinal stenosis. Covering nighttime provider evaluated the patient, ordered an EKG and troponins, both of which were negative for acute changes. Vitals have remained stable, BP of 141/90. Pain was determined to be MSK/Neuropathic in origin and he was given his 0900 Percocet early. He did require a PRN clonidine 0.1 mg at 2230 on 07/29/20 for a BP of 154/90. Patient was interviewed and examined on the floor, he continues to report nondescript abdominal pain. Denies CP, SOB. PHYSICAL EXAMINATION: VITAL SIGNS: See below Gen.: Patient was interacting examined in his hospital room. Patient was found to be sitting upright in bed, obviously uncomfortable. Patient appears of stated age. He is able answer questions regarding his medical history appropriately. HEENT: Normocephalic, atraumatic, EOMI, membranes are moist, no appreciable JVD. CVS: Regular rate and rhythm with a normal S1 and S2, no appreciable murmur. Respiratory: Bibasilar crackles, poor inspiratory effort. EEW throughout. Abdomen: Soft, nontender, nondistended without appreciable organomegaly, no palpable abdominal mass. Extremities: Trace lower extremity edema, right greater than left, improved from 07/29. No appreciable clubbing or cyanosis. Peripheral pulses are 2+ and equal in the radial and posterior tibial arteries bilaterally. Neuro: Numbness on patient's left lower extremity persists, strength is 5 out of 5. alert and oriented 3. LABORATORY DATA: See below. IMAGING: Lumbar spine CT (07/19/20): High-grade central spinal canal and lateral recess stenosis at L3-L4. Mild to moderate central spinal canal stenosis L4-L5. Lower thoracic and abdominal aortic aneurysms. Knee x-ray (07/19/20): Degenerative changes, right greater than left. Lateral views are suboptimal due to overpenetration and evaluation of the bilateral patella and prepatellar soft tissues are incomplete. Head CT 07/19/20): No intracranial hemorrhage seen. Extremity arterial study (07/22/20): Atheromatous changes with no significant areas of stenosis or occlusion. Single focal area of stenosis involving the right common femoral artery/profundus. Lumbar spine MRI (07/21/20): There are atherosclerotic changes of the abdominal aorta and aneurysmal dilation of the infrarenal abdominal aorta measuring as large as 5.5 cm. This is not fully characterized on this exam. This was reported on patient's recent lumbar spine CT scan. Advanced multilevel degenerative changes causing variable degrees of spinal canal and neural foraminal narrowing as described. Spinal canal stenosis is most severe at L3-L4. The urinary bladder is moderately distended Aortic ultrasound (07/22/20): Fusiform dilation of both proximal and distal abdominal aorta. Maximal diameter of the AP dimension approximately 5.3 cm and distally 5.1 cm. The diameter proximally has mildly increased since the prior ultrasound on 06/12/19. There also appears to be increased mural thrombus anteriorly both proximally and distally raising suspicion of dissection with thrombus of the false lumen. Recommend CT with IV contrast of the thoracic and abdominal aorta to rule out dissection and rupture. CT Angio Abd/Pel (07/22/20): Increasing abdominal aortic aneurysms of the proximal aorta and infrarenal abdominal aorta with associated significant atherosclerotic disease. No dissection. CT Angio Chest (07/22/20): Patient is known to be status post thoracic aortic stenting for aneurysm. There appears to be increased dilation of the non-stented distal thoracic aorta at the level of the hiatus as compared to the prior examination as well as a small amount associated retrograde enhancement of the distal aspect of the stent into the surrounding nonsensitive aortic lumen suggesting minimal leak. Lung zavala don't show chronic interstitial changes and mild bibasilar atelectasis. MICROBIOLOGY: Urine culture (07/24/20): Escherichia coli ASSESSMENT: 79-year-old male with past medical history significant for chronic kidney dise ase stage III, hypercholesterolemia, depression with anxiety, osteoarthritis, nocturia, macrocytosis, memory deficit, thoracic aortic aneurysm without rupture. Reflux disease, abdominal aortic aneurysm without rupture and elevated fasting glucose laminectomy for herniated nucleus pulposus at L4-L5 inguinal hernia, colonoscopy, left shoulder arthroscopy, colonoscopy stent placement in the aorta thoracicoabdominal aortic aneurysm repair with graft thoracic endovascular aortic repair with [employer] stroke at [facility] was in his usual state of health until 07/19/20 when his knees gave out while he was getting ready to go to physical therapy in his living room and fell to his knees. His daughter was able to catch it before he hit his head and reach the floor. Patient has noticed increasing weakness of his knees since last spring. He is usually able to mow the lawn but has been unable to do this secondary to weakness. Patient's balance has been worsened in the last 2-3 weeks prior to admission. He reported that he had fallen approximately 3 times in that time despite the assistance of a walker. Patient does carry a history of chronic spinal stenosis. He denies ever having any steroid injections. He has never been seen by pain management, orthopedics or neurosurgery. Patient was admitted to the hospital and received extensive imaging given his history of aortic aneurysms and spinal stenosis. Pain management, orthopedics and vascular surgery were consulted and have weighed in as below. During his hospitalization, patient was found to have hypertensive urgency which was e xtremely concerning in regards to his aneurysms. His medication regimen was optimized, putting adequate control with Q8Hr dosing of hydralazine and isosorbide. Unfortunately, patient also suffered a contrast-induced nephropathy which worsened his already baseline CKD III. Nephrology was consulted and following the patient. His renal function has returned to baseline following appropriate hydration. He has been working diligently with PT/OT. Plan for discharge on 07/30/22 [facility]. At 0600 the morning of 07/30/20 patient was given his scheduled PO BP medications. Approximately 5 minutes later, patient began wrenching, complaining of abdominal pain with radiation to his back. He reported this pain as different than his usual back pain 2/2 to spinal stenosis. Covering nighttime provider evaluated the patient, ordered an EKG and troponins, both of which were negative for acute changes. Vitals have remained stable. Pain was determined to be MSK/Neuropathic in origin and he was given his 0900 Percocet early. Patient continues to report abdominal pain with radiation to his back and intermittent nausea. Wrenching without vance emesis. Pt was noted to have urinary retention, Ball was placed for decompression. Given patient's new abdominal pain, it is prudent to re-evaluate patient's aorta for any changes. Case discussed with radiology, who recommends repeat CT without contrast in light of his CKD and recent contrast-induced nephropathy. Patient also required PRN clonidine last night. Will make adjustments to BP regimen. Per nursing staff, patient continues to be intermittently willing to take his BP medications as prescribed. PLAN: #Abdominal pain -New as of 07/30/20. EKG, trops negative. Vitals stable -Upon examination, notable suprapubic distention. Ball placed with removal of ~600 cc of urine. -Greatly suspect patient's increasing abd discomfort to be 2/2 to retention. -However, given patient's increasing abdominal pain, we will re-image patient's aorta to ensure it has remained clinically stable. -Case discussed with radiology, who suggest CT Chest, Abd/Pelv without contrast. #Hypertensive Heart Disease -Important to maintain SBP between 120-130 given TAA/AAA -Increased Isosorbide, Hydralazine to Q8H dosing 07/28/20. -BP has remained difficult to control. He has required his PRN Clonidine as mentioned above, which can lead to rebound. -Will D/C isosorbid, increase hydralazine to 50 mg Q8H and add Coreg 3.125 BID given that his HR has remained consistently in the 80s. -Continue close monitoring. #Fluid retention -Pt continues to have bibasilar crackles, trace LE edema R>L. -Duonebs Q4HP -Will give a one-time dose of IV lasix 40 mg. -Ball placed given retention. #Spinal Stenosis, severe, bilateral L3-L5 -Pain consultation on 07/22/20, recommend Percocet 5/325mg TID -Reports adequate control -Persisting B/L lower extremity numbness and tingling, B12/Folate negative. #Aortic abdominal aneurysm, 5.3 x 5.5, infrarenal -Status post TAA stenting with Dr. Cook in [place]. -Follow-up appointment on 08/28/20. Consider possible intervention for AAA. -Case was discussed with Dr. Cook who did not see reason for acute intervention or transfer to higher level of care. -Vascular consult on 07/22/20, No further immediate vascular intervention. -Importance of maintaining SBP 120-130. #UTI -Improving frequency -Positive nitrates and LE on 07/24. Escherichia coli by culture -Currently on day #3 of Augmentin 500 twice a day #Gait instability, recurrent falls -multifactorial with history of CVA, spinal stenosis -PT/OT for strengthening and gait training -Rehab following D/C #SARAH, CKD IV -SARAH 2/2 to contrast induced nephropathy earlier in hospitalization -Kidney function returned to baseline. Creatinine of 2.54, up from 2.32 earlier today. -Nephrology following #HLD -Continue home Rosuvastatin #Depression/Anxiety -Suspect increasing mood component to patient's presentation -Continues to decline SI -Continue on home Celexa #Osteoarthritis -PRN Tylenol and Percocet #BPH -Continue home Finasteride DISPO: Pending clinical improvement VS,Fishbone, I+O VS, Fishbone, I+O Laboratory Tests 07/29/20 18:50 07/30/20 05:51 Vital Signs Date Time Temp Pulse Resp B/P (MAP) Pulse Ox O2 Delivery O2 Flow Rate FiO2 07/30/20 07:05 18 07/30/20 06:00 98.1 83 141/90 (107) 97 Room Air I&O- Last 24 Hours up to 6 AM 07/30/20 06:00 Intake Total 960 ml Output Total 1625 ml Balance -665 ml GME ATTESTATION GME ATTESTATION My faculty preceptor for this patient encounter was physically present during the encounter and was fully available. All aspects of the patient interview, examination, medical decision making process, and medical care plan development were reviewed and approved by the faculty preceptor. The faculty preceptor is aware and concurs with the plan as stated in the body of this note and will attest to such by his/her cosignature. DICK VAZQUEZ DO Jul 30, 2020 08:13
[2020-07-30] MEDS ORDERED: CARVedilol 3.125 MG TAB PO SCH (09:00)
[2020-07-30] MEDS: SENOKOT S TAB PO SCH (09:00)
[2020-07-30] MEDS: OMEPRAZOLE 20 MG CAP PO SCH (09:00)
[2020-07-30] MEDS: CitaloPRAM (CeleXA) 20 MG TAB PO SCH (09:00)
[2020-07-30] MEDS: VITAMIN D 1,000 INTERNATIONAL UNITS TABLET PO SCH (09:00)
[2020-07-30] MEDS: FERROUS SULFATE 325MG TAB PO SCH (09:00)
[2020-07-30] MEDS: MIRALAX *UNIT DOSE* 17GM PACKET PO SCH (09:00)
[2020-07-30] MEDS: LIDOCAINE 5% (LIDODERM) PATCH TD SCH (09:00)
[2020-07-30] MEDS: AUGMENTIN 500 MG TAB PO SCH (09:00)
[2020-07-30] MEDS ORDERED: FUROSEMIDE 40MG/4ML VIAL (J1940) IV ONE (10:15)
[2020-07-30] MEDS ORDERED: IPRATROPIUM 0.5MG/ALBUTEROL 2.5MG INH SOL UD 3ML (DUONEB) NEB PRN (10:15)
--- NOTE | 2020-07-30 11:03 | REP ---
INDICATION: R/O AAA EXPANSION COMPARISON: None TECHNIQUE: Axial noncontrast images from the thoracic inlet to the upper abdomen with coronal and sagittal reformations. This CT examination was performed using the following dose reduction techniques: Automated exposure control, adjustment of mA and/or kv according to the patient's size, and use of iterative reconstruction technique. FINDINGS: Ruptured thoracic aortic aneurysm with extensive mediastinal hemorrhage along with pulmonary parenchymal consolidation/atelectasis and small pleural effusions. Aneurysm measures greater than 8 cm diameter. There is evidence for prior thoracic aortic aneurysm stenting. IMPRESSION: Acute ruptured thoracic aortic aneurysm with extensive mediastinal hemorrhage. Findings were immediately relayed to Dr. Alexys Lara <Electronically signed by Angel Salamanca > 07/30/20 [id number]
--- NOTE | 2020-07-30 11:07 | REP ---
INDICATION: R/O AAA EXPANSION COMPARISON: None TECHNIQUE: Axial noncontrast images from the lung bases to the pubic symphysis with coronal and sagittal reformations. This CT examination was performed using the following dose reduction techniques: Automated exposure control, adjustment of mA and/or kv according to the patient's size, and use of iterative reconstruction technique. FINDINGS: Lung base images and chest CT demonstrate an acute ruptured thoracic aortic aneurysm with extensive mediastinal hemorrhage along with small pleural effusions and scattered atelectasis. Aneurysmal dilatation tapers to relatively normal at the level of the hiatus with a 2nd smaller area of aneurysmal dilatation at the infrarenal aorta measuring 5.1 cm diameter extending to the level of the iliac bifurcation. A smaller amount of periaortic inflammatory stranding and hemorrhage along the abdominal aorta is noted as well as retroperitoneal lymph nodes. Liver, spleen, pancreas, gallbladder, bilateral adrenal glands and kidneys are relatively normal/stable for noncontrast evaluation. The enteric system is without obstruction or acute inflammatory process. Pelvis demonstrates Ball catheter in collapsed bladder. Small fat containing right inguinal hernia noted. No ascites. No free air. Musculoskeletal structures demonstrate degenerative changes. IMPRESSION: 1. Ruptured thoracic aortic aneurysm with extensive mediastinal hemorrhage. 2. Second separate infrarenal abdominal aortic aneurysm measuring 5.1 cm diameter with small amount of periaortic inflammatory stranding and few scattered retroperitoneal lymph nodes. These findings may be related to the above-mentioned thoracic rupture but require separate evaluation. 3. Findings were immediately discussed with Dr. Alexys Lara <Electronically signed by Angel Salamanca > 07/30/20 [id number]
[2020-07-30] MEDS: LABETALOL HCL 200 MG in D5W 160 ML IV SCH ×2 (11:56→13:35)
[2020-07-30] MEDS ORDERED: HYDR50TA PO (12:16)
[2020-07-30] MEDS ORDERED: CARV3.12 PO (12:16)
[2020-07-30] MEDS ORDERED: AMOX500T2 PO (12:16)
--- NOTE | 2020-07-30 12:46 | IPN ---
PROGRESS NOTE DATE: 07/30/2020 SUBJECTIVE: Patient was seen and examined at the bedside today morning. He had just come back after getting stat CAT scan of the chest. Patient is not feeling well. He reports chest pain and abdominal pain. His renal function is otherwise stable. We just got a stat result from the radiology department that patient has a ruptured thoracic aortic aneurysm with bleeding into the mediastinum. Rapid assessment team was called overhead. The team arrived, patient got two large I.V. lines and stat labs and type and cross match was ordered. Patient is to be transferred to the ICU and medical team is in touch with the transfer center at [facility] for emergent transfer of the patient. OBJECTIVE: VITAL SIGNS: Temperature 98.7 degrees Fahrenheit, blood pressure 131/91, pulse 84, respiratory rate 20, saturating 93% on nasal cannula at 2 liters. INTAKE AND OUTPUT: Urine output recorded as 1.4 liters yesterday and 925 mL so far today. PHYSICAL EXAMINATION: GENERAL: Patient is awake, alert, oriented x3, laying in bed in moderate painful distress, slightly anxious. HEAD/NECK: Extraocular muscles intact. Pupils equally round and reactive to light. Mucous membranes are moist. Neck is supple. There is no JVD. CARDIOVASCULAR: S1, S2, regular rate. 1+ edema of the bilateral lower extremities. RESPIRATORY: Mildly decreased breath sounds at the bases. ABDOMEN: Soft, positive bowel sounds, nontender. No organomegaly was noted. MUSCULOSKELETAL: No clubbing or cyanosis. Pulses are 2+. LOAN ADMINISTRATOR: No focal deficit. Power is 5/5 in all extremities. LABORATORY REVIEW: CBC showed WBC 11.4, hemoglobin 9.8, platelets 168,000. BMP showed sodium 134, potassium 3.8, chloride 101, bicarb 27, BUN 40, creatinine 2.5. IMAGING STUDIES: A CAT scan of the chest was done today, which showed acute ruptured thoracic aortic aneurysm with extensive mediastinal hemorrhage. CAT scan of the abdomen and pelvis showed infrarenal abdominal aortic aneurysm measuring 5.1 cm in diameter with small amount of periaortic inflammatory stranding. CURRENT INPATIENT MEDICATIONS: Patient's medications were all reviewed by myself. He has been started on I.V. Labetalol and Coreg 3.125 mg p.o. twice a day. Clonidine has been stopped. Hydralazine and Isosorbide has been stopped. No other significant change in the medications today. ASSESSMENT AND PLAN: 1. Acute kidney injury superimposed on chronic kidney disease: Patient's renal function is stable. Creatinine has been fluctuating at around 2.3 to 2.5. Patient has acute ruptured thoracic aortic aneurysm, which needs emergent attention at this time. 2. Ruptured thoracic aortic aneurysm: Patient is being transferred to the ICU. Type and cross match of his blood has been sent. Blood pressure monitoring as per medical team. Emergent transfer to a vascular surgeon at [facility] is pending. 3. Hypertension with hypertensive heart disease and thoracic aortic aneurysm and abdominal aortic aneurysm: As mentioned above, patient has been started on I.V. Labetalol. If needed, he can be started on Labetalol or Nicardipine drip. Blood pressure at this time is within the acceptable range. The patient's renal function has been stable for the last few days. Electrolytes are within the acceptable range. Currently, his most emergent issue is the ruptured thoracic aortic aneurysm. Nephrology service is going to sign off at this moment. Please call nephrology service for any help in the management of this patient during this hospitalization.
--- NOTE | 2020-07-30 12:52 | DS.PDOC ---
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, L3-L5 Abdominal aortic aneurysm measuring 5.3 cm in the infrarenal area 6.6 cm descending thoracic upper abdominal aortic aneurysm CKD, stage III Hypercholesterolemia Depression with anxiety Osteoarthritis Memory deficit DISCHARGE DIAGNOSES: Acute ruptured thoracic aortic aneurysm, mediastinal hemorrhage Aortic abdominal aneurysm, 5.3 x 5.5, infrarenal E-coli UTI Hypertensive heart disease Spinal stenosis, severe, bilateral L3-L5 SARAH, CKD stage IV Gait instability, recurrent falls Hyperlipidemia Depression/anxiety Osteoarthritis BPH COMPLICATIONS/CHIEF COMPLAINT: Spinal Stenosis Of Lumbar Region. HISTORY OF PRESENT ILLNESS: 79-year-old male with past medical history significant for chronic kidney disease stage III, hypercholesterolemia, depression with anxiety, osteoarthritis, nocturia, macrocytosis, memory deficit, thoracic aortic aneurysm without rupture. Reflux disease, abdominal aortic aneurysm without rupture and elevated fasting glucose laminectomy for herniated nucleus pulposus at L4-L5 inguinal hernia, colonoscopy, left shoulder arthroscopy, colonoscopy stent placement in the aorta thoracicoabdominal aortic aneurysm repair with graft thoracic endovascular aortic repair with TAILER IN stroke at [facility] was in his usual state of health until 07/19/20 when his knees gave out while he was getting ready to go to physical therapy in his living room and fell to his knees. His daughter was able to catch it before he hit his head and reach the floor. Patient has noticed increasing weakness of his knees since last spring. He is usually able to mow the lawn but has been unable to do this secondary to weakness. Patient's balance has been worsened in the last 2-3 weeks prior to admission. He reported that he had fallen approximately 3 times in that time despite the assistance of a walker. Patient does carry a history of chronic spinal stenosis. He denies ever having any steroid injections. He has never been seen by pain management, orthopedics or neurosurgery. He otherwise denied any palpitations, lightheadedness, dizziness, shortness of breath prior to the episode. He has been in his usual state of health and denied any fever, chills, headache, sore throat, tinnitus, vertigo, visual changes, diplopia, blurred vision, ear pain, neck pain, chest pain, pressure, tightness, near syncope, nausea, vomiting, diarrhea, abdominal pain, dysuria, urgency, frequency, flank pain, polyuria, polydipsia, weight gain, weight loss, changes in appetite, skin rash, abnormal nodules or joint pains. In the emergency room, a CT lumbar spine shows high-grade central spinal canal and lateral recess stenosis at L3-L4, L4-L5, mild to moderate central spinal canal stenosis lower thoracicoabdominal aneurysms as above. X-rays of bilateral knees have no fracture but with tricompartmental osteoarthritic changes. CT of the head is chronic, old infarcts with no intracranial hemorrhage. Patient was evaluated by physical therapy and recommended observation to improve patient's balance. Hospitalist was called for consultation. Due to recent recurrent falls, patient will be admitted for observation for physical therapy services. He did not had any prodromal symptoms to suggest a medical illness prior to the fall. Patient admits to having some gait instability, most likely secondary to multiple CVAs. He otherwise denied any acute ischemic symptoms prior to the episode. He certainly did not have any acute infectious process currently or the days prior to presentation, though it could be the cause of his weakness. However, no infectious process was found. Physical therapy, occupational therapy have been consulted. Fall precautions. Activity as tolerated but with assisted ambulation only. Patient is to walk with his walker at all times. He was resumed on all his home medications. He denied any pain in the knees or the back. DVT prophylaxis with compression stockings. He is to have assisted ambulation with 1 person assistance at home at all times. HOSPITAL COURSE: The following day on 07/20/20, patient was scheduled for discharge home with PCP and orthopedic follow-up. However, this discharge was postponed as the family was unable to provide 24 7 care at home. Patient was then evaluated for ARU vs SNF placement. His blood pressure remained high but he denied any headaches, change in vision, chest pain, pressure or tightness, lightheadedness, dizziness or shortness of breath. Patient reported lower extremity pain while ambulating. MRI of the patient's lumbar spine was ordered to rule out compression. On 07/22, patient was noted to have decreasing hemoglobin without brbpr, melana or black tarry stools. He denies CP, pressure, tightness or SOB. Due to history of TAA, AAA and increasing back pain, an US of the patient's aorta was ordered. CTA was deferred at this time 2/2 to CKD IV. US showed diffuse aneurysmal dilation of the AAA, CT of both thoracic and abdominal aorta with IV contrast was recommended to rule out dissection and rupture. Per records, results were discussed with the family who stated "we've known about this, and he was sup posed to go back to [place] for the second surgery, but had a stroke. We don't want this looked at with a contrast study, because they had done all that there already". Patient's family proceeded to contact Dr. Cook who, in turn, contacted attending hospitalist. Per record, Dr. Cook recommended proceeding with CT chest, abd, pelvis with contrast to r/o aortic dissection who, if present, would facilitate transfer to [place]. Given patient's CKD IV history, nephrology was consulted to help management of contrast-induced nephropathy. CTA of chest, abdomen/pelvis was performed with minimum dose of IV dye. Patient was subsequently hydrated with IVF and a little was placed for close monitoring of his I/Os. Results of aforementioned imaging studies are listed below. Patient's CTA of the chest, abdomen and pelvis were reviewed by [facility] vascular surgery who agreed that there was no sign of rupture or dissection. Patient was encouraged to follow-up with his vascular surgeon in [place], [place] on 08/01/20. Patient's imaging studies were reviewed by Dr. Cook on 07/23/20 who reported that the patient did not require any acute intervention or transfer to a higher level of care. Per records, he agreed that there was not any evidence of dissection, and recommended outpatient follow-up as scheduled with appropriate in-patient BP control. Given patient's history of spinal stenosis, a consultation with pain management was also ordered. Per their recommendation, patient was continued on Percocet 3 times a day as needed for back pain, which seemed to provide adequate control. On 07/24, it appeared the patient did demonstrate some signs of gross hematuria in the setting of his anemia and 2 units of blood were subsequently transfused. Patient's aspirin was held, despite his history of CVA. Patient's hematuria prompted a UA that was consistent with UTI. Patient was placed on IV ceftriaxone and a culture was sent ultimately growing Escherichia coli. In regards to the patient's blood pressure, he was transitioned to oral hypertensive medications with isosorbide and hydralazine. His Norvasc was discontinued. Morning labs did show hyperkalemia, requiring both Kayexalate and calcium gluconate. Per record, patient's hyperkalemia resolved appropriately. On 07/25, patient reported generalized malaise, hematuria with clots. He was noted to have a slight leukocytosis. His creatinine continued to trend upward despite IV fluid hydration, likely result of contrast-induced nephropathy. Pat ient continued to complain of bilateral leg discomfort with ambulation which radiated to his feet. ARU approval remained pending. Patient's medications were titrated from 3 times a day to twice a day dosing to be easier for patient to take his medication. Nephrology continued to monitor renal function. On 07/26, patient's Escherichia coli was found to be sensitive to amoxicillin. Patient was started on Augmentin and his IV antibiotics were discontinued. Blood pressure control continued to be intermittently successful based on patient's willingness to take medication. Patient continued with his physical therapy therapy but unfortunately was not cleared to be discharged home. Patient's creat inine remained elevated and he continued on IV fluids. On 07/27/20, patient complained of worsening lower extremity pain requiring an additional dose of Percocet. Continue to wait for ARU acceptance. On 07/28/20, patient's blood pressure medications were again transitioned to every 8 hours holding parameters. Patient remained relatively stable. On 07/29/20, patient's creatinine returned to baseline. He received one-time doses of diuretics given extra fluid retention due to his aggressive hydration for contrast-induced nephropathy. He has been working diligently with PT/OT. Patient was accepted for rehabilitation in [place]. This was conveyed to his family who was in agreement with the D/C plan. The morning of 07/30/20, patient reported increasing abdominal pain with radiation towards his back. Nighttime provider attended to the patient ordering stat troponins and EKG which did not indicate any acute process. Examination was also unrevealing. Patient was given his Percocet early and treated with a K pad for suspected MSK/neuropathic pain. Repeat examination didn't demonstrate b ladder distention and a Little was placed with drainage of approximately 600 mL of dilute urine. Throughout the morning, patient continued to have mild abdominal discomfort. Given his complicated history including contrast-induced nephropathy, patient's case was reviewed with radiology who recommended CT scans without contrast. CT chest, abdomen and pelvis were ordered, which revealed acute ruptured thoracic aortic aneurysm with mediastinal hemorrhage. Both [facility] and [facility] were contacted for possible transfer. Simultaneously, patient's daughter was informed of the mornings events. Patient's daughter subsequently contacted patient's vascular surgeon, Dr. Cook, who got in touch with the attending hospitalist and arranged for immediate transfer to [facility]. Patient was placed in the ICU on a labetalol drip with a goal to maintain his blood pressure less than 120. DISCHARGE MEDICATIONS: Please see below. ALLERGIES: Please see below. PHYSICAL EXAMINATION ON DISCHARGE: VITAL SIGNS: Please see below. GENERAL: Awake, alert, oriented, lethargic, pale HEENT: Normocephalic, atraumatic CARDIOVASCULAR EXAMINATION: RRR, N1/S1, no murmur. RESPIRATORY EXAMINATION: Bibasilar crackles noted, poor inspiratory effort, ABDOMINAL EXAMINATION: Soft, nontender, nondistended, without palpable abdominal mass. No bruits on auscultation. EXTREMITIES: Pulses equally palpable in both upper and lower extremities. SKIN: Warm, dry, no skin lesions or rashes, bruising. NEUROLOGICAL EXAMINATION: Daily 3, able to answer questions, no focal neurologic deficits LABORATORY DATA: Please see below. IMAGING: CT chest w/o contrast (07/30/20): Acute ruptured thoracic aortic aneurysm with extensive mediastinal hemorrhage. Findings were immediately discussed with att ending physician. CT abdomen w/o contrast (07/30/20): Ruptured thoracic aortic aneurysm with extensive mediastinal hemorrhage. A second separate infrarenal abdominal aortic aneurysm measuring 5.1 diameter with small amount of periaortic inflammatory stranding and few scattered retroperitoneal lymph nodes. These findings may be related to the above-mentioned thoracic rupture but require separate evaluation. Findings were immediately discussed with the attending physician. Lumbar spine CT (07/19/20): High-grade central spinal canal and lateral recess stenosis at L3-L4. Mild to moderate central spinal canal stenosis L4-L5. Lower thoracic and abdominal aortic aneurysms. Knee x-ray (07/19/20): Degenerative changes, right greater than left. Lateral views are suboptimal due to overpenetration and evaluation of the bilateral patella and prepatellar soft tissues are incomplete. Head CT 07/19/20): No intracranial hemorrhage seen. Extremity arterial study (07/22/20): Atheromatous changes with no significant areas of stenosis or occlusion. Single focal area of stenosis involving the right common femoral artery/profundus. Lumbar spine MRI (07/21/20): There are atherosclerotic changes of the abdominal aorta and aneurysmal dilation of the infrarenal abdominal aorta measuring as large as 5.5 cm. This is not fully characterized on this exam. This was reported on patient's recent lumbar spine CT scan. Advanced multilevel degenerative changes causing variable degrees of spinal canal and neural foraminal narrowing as described. Spinal canal stenosis is most severe at L3-L4. The urinary bladder is moderately distended Aortic ultrasound (07/22/20): Fusiform dilation of both proximal and distal abdominal aorta. Maximal diameter of the AP dimension approximately 5.3 cm and distally 5.1 cm. The diameter proximally has mildly increased since the prior ultrasound on 06/12/19. There also appears to be increased mural thrombus anteriorly both proximally and distally raising suspicion of dissection with thrombus of the false lumen. Recommend CT with IV contrast of the thoracic and abdominal aorta to rule out dissection and rupture. CT Angio Abd/Pel (07/22/20): Increasing abdominal aortic aneurysms of the proximal aorta and infrarenal abdominal aorta with associated significant atherosclerotic disease. No dissection. CT Angio Chest (07/22/20): Patient is known to be status post thoracic aortic stenting for aneurysm. There appears to be increased dilation of the non-stented distal thoracic aorta at the level of the hiatus as compared to the prior examination as well as a small amount associated retrograde enhancement of the distal aspect of the stent into the surrounding nonsensitive aortic lumen suggesting minimal leak. Lung zavala don't show chronic interstitial changes and mild bibasilar atelectasis. PROGNOSIS: Guarded. DISCHARGE PLAN: Patient was accepted for transfer by Shant Cook M.D. at [facility]. DISCHARGE CONDITION: Hemodynamically stable. TIME SPENT ON DISCHARGE: Greater than 55 minutes. Vital Signs/I&Os Vital Signs Date Time Temp Pulse Resp B/P (MAP) Pulse Ox O2 Delivery O2 Flow Rate FiO2 07/30/20 11:03 87 140/92 07/30/20 10:00 98.7 20 93 Nasal Cannula 2.0 I&O- Last 24 Hours up to 6 AM 07/30/20 06:00 Intake Total 960 ml Output Total 1625 ml Balance -665 ml Laboratory Data Labs 24H Laboratory Tests 2 07/29/20 18:50: Nucleated Red Blood Cells % (auto) 0.0 07/29/20 19:01: Coronavirus (COVID-19)(PCR) NEGATIVE 07/30/20 05:51: Nucleated Red Blood Cells % (auto) 0.0, Anion Gap 6L, Glomerular Filtration Rate 26.0L, Calcium Level 8.8 07/30/20 06:18: Total Creatine Kinase 102, Creatine Kinase MB 1.6, Creatine Kinase MB Relative Index 1.57, Troponin I < 0.02 CBC/BMP Laboratory Tests 07/29/20 18:50 07/30/20 05:51 Microbiology Microbiology 07/24/20 Urine Culture - Final, Complete Escherichia Coli 07/23/20 Stool Occult Blood (WARNER) - Final, Complete Discharge Medications Scheduled Acetaminophen (Acetaminophen) 500 Mg Tablet, 1,000 MG PO TID Amoxicillin/Potassium Clav (Amox-Clav 500-125 mg Tablet) 1 Each Tablet, 500 MG PO BID Aspirin (Aspirin EC) 325 Mg Tablet.dr, 325 MG PO DAILY, (Reported) Carvedilol (Carvedilol) 3.125 Mg Tablet, 3.125 MG PO BID Cholecalciferol (Vitamin D3) (Vitamin D3) 1,000 Unit Tablet, 2,000 UNITS PO BID, (Reported) Citalopram Hydrobromide (Celexa) 20 Mg Tablet, 20 MG PO DAILY, (Reported) Ferrous Sulfate (Iron) 325 Mg Tablet, 65 MG PO 3XW, (Reported) TUES, THURS, SAT Finasteride (Finasteride) 5 Mg Tablet, 5 MG PO QHS, (Reported) Hydralazine HCl (Hydralazine HCl) 50 Mg Tablet, 50 MG PO Q8H Melatonin (Melatonin) 5 Mg Tablet, 5 MG PO QHS, (Reported) Metoprolol Succinate (Metoprolol Succinate) 25 Mg Tab.er.24h, 25 MG PO QHS, (Reported) Omeprazole (Omeprazole) 20 Mg Cap, 40 MG PO DAILY, (Reported) Rosuvastatin Calcium (Crestor) 20 Mg Tablet, 20 MG PO Q2D, (Reported) AT BEDTIME Sennosides/Docusate Sodium (Senna-S Tablet) 1 Each Tablet, 1 TAB PO QHS, (Reported) Sucralfate (Sucralfate) 1 Gm Tablet, 1 GM PO AC, (Reported) Tamsulosin HCl (Flomax) 0.4 Mg Capsule, 0.4 MG PO QHS, (Reported) [Arthro] , 1 TAB PO BID, (Reported) Scheduled PRN Sennosides/Docusate Sodium (Senna-S Tablet) 1 Each Tablet, 1 TAB PO DAILY PRN for CONSTIPATION, (Reported) Allergies Coded Allergies: prochlorperazine (Verified Allergy, Severe, TONGUE SWELLING, 07/19/20) GME ATTESTATION GME ATTESTATION My faculty preceptor for this patient encounter was physically present during the encounter and was fully available. All aspects of the patient interview, examination, medical decision making process, and medical care plan development were reviewed and approved by the faculty preceptor. The faculty preceptor is aware and concurs with the plan as stated in the body of this note and will attest to such by his/her cosignature. DICK VAZQUEZ DO Jul 30, 2020 12:52
[2020-07-30] MEDS ORDERED: LABETALOL 100MG/20ML VIAL As Ordered ONE (13:42)
[2020-07-30] MEDS ORDERED: **hydrALAZINE** 50 MG TAB PO SCH (14:00)
--- NOTE | 2020-07-31 14:15 | IPN ---
PROGRESS NOTE DATE: 07/30/2020 01:53:00 pm SUBJECTIVE: Mr. Najera is seen this morning on his bedside. He has gross hematuria and his Ball bag is full of dark red urine. Patient denies any pulling of catheter. Nursing staff reports that they came to remove his catheter and noticed blood, so hospitalist service has ordered a urinalysis. Patient denies any dyspnea or chest pain. Yesterday, he received 2 units of blood due to severe anemia and tolerated it well. His I.V. fluids have been stopped. PHYSICAL EXAMINATION: VITALS: Temperature 97 degrees Fahrenheit, heart rate 74 per minute, respiratory rate 17 per minute, blood pressure 114/74 mmHg and oxygen saturation 96% on room air. HEAD: Atraumatic. NECK: Supple. JVD difficult to be assessed. HEART: Heart sounds are regular. LUNGS: Clear to auscultation. ABDOMEN: Protuberant, soft and nontender. Bowel sounds normal. EXTREMITIES: Without any cyanosis or clubbing. NEUROLOGIC: He is awake and at his baseline mentation without a focal deficit. LABORATORY DATA: Today's labs show WBC 12.7, hemoglobin 11.4, hematocrit 34.9, platelets 151,000. Sodium 140, potassium 4.2, CO2 27, BUN 36, creatinine 2.51, glucose 101 and calcium 9.1. PROBLEMS: 1. Acute kidney injury superimposed on chronic kidney disease: Slight improvement in his kidney function is noticed. More importantly, he did not get any worsening of kidney function following I.V. contrast given for CT angiogram on the . His I.V. fluid has been stopped and renal function seems to be stable now. 2. Anemia: His anemia improved following transfusion. Will need close monitoring in view of gross hematuria. 3. Hematuria: This is new and most likely traumatic. Urinalysis is being sent and should also get a urine culture. I feel that his Ball catheter should be removed. 4. Abdominal aortic aneurysm: Patient seems to be stable as far as his symptoms are concerned. At present, we will wait for him to go back to vascular surgery for evaluation. 5. Hypertension: Blood pressure seems well controlled with current medications. No changes are being made today.
--- NOTE | 2020-08-01 12:14 | IPN ---
PROGRESS NOTE DATE: 07/27/2020 02:15:00 pm SUBJECTIVE: The patient was seen and examined at the bedside today morning. He is afebrile and hemodynamically stable. He has a good urine output. Renal function is slowly improving. Creatinine is down to 2.3. He reports that he is feeling better today. OBJECTIVE: VITAL SIGNS: Temperature 97.1 degrees Fahrenheit, blood pressure 130/82, pulse 60, respiratory rate 18, saturating 92% on room air. INTAKE/OUTPUT: Urine output recorded is 1.5 liters yesterday and 1.8 liters so far today since overnight. GENERAL: The patient is awake, alert, and oriented x3. Sitting up on the sofa in no apparent distress. HEAD/NECK: Extraocular muscles intact. Pupils equal, round, reactive to light. Mucous membranes are moist. Neck is supple. There is no JVD. CARDIOVASCULAR: S1, S2. Regular rate. 1+ edema of the bilateral lower extremities. RESPIRATORY: Chest is clear to auscultation bilaterally. Bilaterally currently no rales or rhonchi. ABDOMEN: Soft with positive bowel sounds. Nontender. No organomegaly. GENITOURINARY: Bladder is not palpable. MUSCULOSKELETAL: No clubbing or cyanosis. Pulses are 2+. MULTIPLEX OPERATOR: No focal deficits. Power 5/5 in all extremities. LABORATORY DATA: CBC showed WBC 8.6, hemoglobin 9.5, platelets 134,000. BMP showed sodium 140, potassium 4.1, chloride 109, bicarb 25, BUN 39, creatinine 2.3. CURRENT INPATIENT MEDICATIONS: The patient's medications were all reviewed by myself. He has been started on Augmentin 500 mg p.o. twice a day. No other significant change in the medications today as compared with yesterday. ASSESSMENT AND PLAN: 1. Acute kidney injury superimposed on chronic kidney disease. It was most likely contrast-induced nephropathy. Renal function is improving. Creatinine is down to 2.3 now. No further need for intravenous (IV) fluid hydration at this time. 2. Escherichia coli (E. coli) urinary tract infection. The patient is currently getting oral amoxicillin, which should cover urinary tract infection as well. 3. Hypertension with hypertensive heart disease. Blood pressure is well-controlled. Continue current dose of Clonidine p.r.n., hydralazine 50 mg q. 8 hourly, isosorbide dinitrate 40 mg p.o. twice a day. Blood pressures are within the optimal range. 4. Iron deficiency anemia. The patient is currently getting oral iron. Hemoglobin level is stable and improving. 5. Disposition: The patient's renal function is stable and improving. He is optimized from a nephrology standpoint to be discharged home. He will need to follow-up with nephrology within two weeks after discharge from the hospital.
== END 2020-07-30 13:53 | disposition short-term general hospital (02) | DRG 91 ==
LOC: M ED 13:28 → M ED INP 13:29 → ENRESERV 21:17 → M MSPAV 22:01 → OBSVTOIN 07-20 14:15 → M ICU 07-30 11:23
PROVIDERS: ADMIT General Practice; ATTEND Internal Medicine
PROC: 30233N1 Transfusion of Nonautologous Red Blood Cells into Peripheral Vein, Percutaneous Approach (ICD-10-PCS; principal; 2020-07-23)
DX: R29.6 Repeated falls (principal); I71.1 Thoracic aortic aneurysm, ruptured; N17.9 Acute kidney failure, unspecified; N39.0 Urinary tract infection, site not specified; N18.4 Chronic kidney disease, stage 4 (severe); E78.00 Pure hypercholesterolemia, unspecified; F32.9 Major depressive disorder, single episode, unspecified; F41.9 Anxiety disorder, unspecified; B96.20 Unspecified Escherichia coli [E. coli] as the cause of diseases classified elsewhere; I16.0 Hypertensive urgency; D63.8 Anemia in other chronic diseases classified elsewhere; M48.062 Spinal stenosis, lumbar region with neurogenic claudication; E87.5 Hyperkalemia; I13.10 Hypertensive heart and chronic kidney disease without heart failure, with stage 1 through stage 4 chronic kidney disease, or unspecified chronic kidney disease; N40.1 Benign prostatic hyperplasia with lower urinary tract symptoms; R35.1 Nocturia; D75.89 Other specified diseases of blood and blood-forming organs; K21.9 Gastro-esophageal reflux disease without esophagitis; I71.4 Abdominal aortic aneurysm, without rupture; M17.0 Bilateral primary osteoarthritis of knee; K59.00 Constipation, unspecified; R73.01 Impaired fasting glucose; M48.061 Spinal stenosis, lumbar region without neurogenic claudication; I69.398 Other sequelae of cerebral infarction; R26.81 Unsteadiness on feet; Z79.82 Long term (current) use of aspirin; Z88.8 Allergy status to other drugs, medicaments and biological substances; Z79.899 Other long term (current) drug therapy; Z20.828 Contact with and (suspected) exposure to other viral communicable diseases